=== PATIENT | male | born 1945 | race Hispanic/Latino ===

== ENCOUNTER 2016-03-25 08:43 | Emergency (ER) | payer MEDICARE ==
[2016-03-25] MEDS ORDERED: TORADOL IM ONE (09:04)
--- NOTE | 2016-03-25 09:07 | Emergency Department Report ---
HPI - General Time Seen by Provider: 03/25/16 08:53 - HPI HPI: This is a 71-year-old male who presents to the emergency department via EMS with complaint of pain to the right lower leg and the low back after slipping on the ice and [place] bus station today. Patient did not take anything for symptoms and did not receive anything for his symptoms prior to presentation. He denies any numbness or paresthesias, problems with bowel or bladder any neurological deficits. Patient complains only of psychiatric history and no past medical history. Patient says he is "unsheltered" meaning that he is homeless. Patient has some abrasions to the right og. Patient says he is able to walk on the affected right leg but he has some pain with doing so. Patient is up-to-date with his tetanus vaccination. ED Past Medical Hx - Past Medical History Hx Hypertension: Yes Hx Renal Disease: Yes Hx Psychiatric Treatment: Yes (schizophrenia) Hx HIV: No Additional medical history: PNEUMONIA, kidney problems - Surgical History Additional Surgical History: hernia removal 2010, "surgery for colon cancer" - Social History Smoking Status: Current Every Day Smoker Substance Use Type: None - Medications Home Medications: Home Medications Medication Instructions Recorded Confirmed Last Taken Type Ibuprofen [Motrin] 600 mg PO Q8H PRN #20 tablet 03/25/16 Unknown Rx Sulfamethoxazole/Trimethoprim 1 each PO BID #10 tablet 03/25/16 Unknown Rx [Bactrim DS TAB] ED Review of Systems ROS: Stated complaint: FALL Other details as noted in HPI Comment: All other systems reviewed and negative Constitutional: denies: chills, fever Eyes: denies: eye pain, eye discharge, vision change ENT: denies: ear pain, throat pain Respiratory: denies: cough, shortness of breath, wheezing Cardiovascular: denies: chest pain, palpitations Gastrointestinal: denies: abdominal pain, nausea, diarrhea Genitourinary: denies: urgency, dysuria Musculoskeletal: back pain, arthralgia Skin: other (abrasions). denies: rash Neurological: denies: headache, weakness, paresthesias Physical Exam - Physical Exam Physical Exam: GENERAL: The patient is well-developed well-nourished. Patient does not appear in any acute distress. HEENT: Normocephalic. Atraumatic. Extraocular motions are intact. Patient has moist mucous membranes. Pupils equal reactive to light bilaterally. NECK: Supple. Trachea is midline. CHEST/LUNGS: Clear to auscultation. There is no respiratory distress noted. HEART/CARDIOVASCULAR: Regular. There is no tachycardia. There is no gallop rub or murmur. ABDOMEN: Abdomen is soft, nontender. Patient has normal bowel sounds. There is no abdominal distention. SKIN: There is no rash. Patient has a narrow but long abrasion to the anterior right tib-fib. No surrounding erythema and no current discharge or bleeding. NEURO: The patient is awake, alert, and oriented. The patient is cooperative. The patient has no focal neurologic deficits. The patient has normal speech and gait. MUSCULOSKELETAL: Tenderness to palpation to the right lower extremity from the distal tib-fib to the proximal femur but no obvious deformity. There is no limitation range of motion. ED Medical Decision Making - Radiology Data Radiology results: image reviewed interpreted by me: X-ray of the right femur show some degenerative changes but no acute fracture, dislocation or any acute process. X-ray of the right tib-fib shows no fracture, dislocation or any acute process. X-ray of the lumbar spine and sacrum show some osteophytes and degenerative changes but no fractures or any obvious acute process. - Medical Decision Making 71-year-old male slipped and fell on the ice onto his right side causing an abrasion to the og and some right lower extremity pain as well as some pain to the low back. X-rays were done of the right tib-fib, femur, as well as the lumbosacral spine. All these x-rays were read by radiology, as well as by myself, and there was no obvious fractures, dislocations or any acute processes. Patient given a Toradol shot for discomfort. Patient was seen ambulatory in the emergency department and appeared stable while doing so. Patient was given multiple referrals for primary care and encouraged to seek chcf in a chcf. He will return to the ER with any worsening of his symptoms or any acute distress. - Differential Diagnosis fracture, contusion, abrasion, sprain Critical Care Time: No Critical care attestation.: If time is entered above; I have spent that time in minutes in the direct care of this critically ill patient, excluding procedure time. ED Disposition Clinical Impression: Right leg pain Fall Qualifiers: Encounter type: initial encounter Qualified Code(s): W19.XXXA - Unspecified fall, initial encounter Abrasion of leg, right Qualifiers: Encounter type: initial encounter Qualified Code(s): S80.811A - Abrasion, right lower leg, initial encounter Disposition: DISCHARGED TO HOME OR SELFCARE Is pt being admited?: No Condition: Stable Instructions: Arthralgia (ED), Abrasion (ED) Additional Instructions: I've given you multiple referrals for primary care follow-up at clinic's nearby. Return to the emergency department with any worsening of your symptoms or any acute distress. Prescriptions: Sulfamethoxazole/Trimethoprim [Bactrim DS TAB] 1 each PO BID #10 tablet Ibuprofen [Motrin] 600 mg PO Q8H PRN #20 tablet PRN Reason: Pain Referrals: PRIMARY CARE,MD [Primary Care Provider] - 3-5 Days [facility] [Outside] - 3-5 Days [facility] [Outside] - 3-5 Days [facility] [Outside] - 3-5 Days [facility] [Outside] - 3-5 Days Time of Disposition: 12:04
--- NOTE | 2016-03-25 11:18 | XRay Report ---
FINAL REPORT PROCEDURE: XR FEMUR 2 RT TECHNIQUE: AP and lateral views HISTORY: fall, leg pain COMPARISON: None FINDINGS: There is no evident fracture. There is no blastic or lytic lesion. There is mild DJD of the right hip worse than knee. Dystrophic calcifications of the posterior medial thigh are seen. IMPRESSION: Degenerative changes without evident fracture. If symptoms persist consider MRI for further evaluation.
--- NOTE | 2016-03-25 11:22 | XRay Report ---
FINAL REPORT PROCEDURE: XR SPINE LUMBOSACRAL 2-3V TECHNIQUE: AP, lateral, and cone-down lateral views HISTORY: fall, back pain COMPARISON: None FINDINGS: Mild multilevel degenerative disc disease and facet DJD is present. Intervertebral disc heights are largely maintained. Multilevel anterior lateral osteophyte formation is present as well as juxta-articular endplate sclerosis. Straightening of the lumbar lordosis is present. Calcific atherosclerosis is seen. IMPRESSION: Straightening of the lumbar lordosis either positional or related to spasm. No evident fracture. If symptoms persist consider MRI to exclude edema associated with subtle nondisplaced microfracture as well as to evaluate for disc herniation and stenosis. Mild multilevel degenerative disc disease and facet DJD.
--- NOTE | 2016-03-25 11:23 | XRay Report ---
FINAL REPORT PROCEDURE: XR TIBIA FIBULA 2V RT TECHNIQUE: AP and lateral views HISTORY: fall, leg pain COMPARISON: None FINDINGS: Mild DJD at the knee and ankle is present. There is no evident fracture of the tibia or fibula. There is no blastic or lytic lesion. IMPRESSION: No fracture
[2016-03-25] MEDS ORDERED: TRIPLE ANTIBIOTIC TP ONE (12:01)
[2016-03-25 15:16] VITALS: BP 112/75
== END 2016-03-25 15:00 | disposition home or self-care (01) ==
LOC: ED 08:43
DX: S80.811A Abrasion, right lower leg, initial encounter (principal); I10 Essential (primary) hypertension; F20.9 Schizophrenia, unspecified; F17.200 Nicotine dependence, unspecified, uncomplicated; W00.0XXA Fall on same level due to ice and snow, initial encounter; Y93.89 Activity, other specified; Y99.8 Other external cause status; Y92.89 Other specified places as the place of occurrence of the external cause
CPT/HCPCS: 72100; 73552; 73590; 96372; 99284; J1885; A6250

== ENCOUNTER 2016-04-04 23:28 | Emergency (ER) | payer SELFPAY ==
[2016-04-05 00:52] LABS: Basophils % (Auto) 0.6 % (0.0-1.8); Eosinophils % (Auto) 0.3 % (0.0-4.3); Hematocrit 43.6 % (35.5-45.6); Hemoglobin 14.3 gm/dl (11.8-15.2); Mean Corpuscular HGB Conc 33 % (32-34); Mean Corpuscular Hemoglobin 28 pg (28-32); Mean Corpuscular Volume 86 fl (84-94); Platelet Count 171 K/mm3 (140-440); Red Cell Distribution Width 14.6 % (13.2-15.2); White Blood Count 8.8 K/mm3 (4.5-11.0)
[2016-04-05 01:12] LABS: BUN/Creatinine Ratio 23.33; Blood Urea Nitrogen 21 mg/dL (9-20); Calcium 9.2 mg/dL (8.4-10.2); Carbon Dioxide 29 mmol/L (22-30); Glucose 100 mg/dL (75-100); Potassium 4.2 mmol/L (3.6-5.0); Sodium 138 mmol/L (137-145)
[2016-04-05 01:17] LABS: Anion Gap 17 mmol/L
[2016-04-05 02:02] LABS: Urine Drugs of Abuse Note Disclamer
[2016-04-05 02:13] LABS: Bilirubin,Urine NEG (Negative); Blood,Urine SM (Negative); Ketones,Urine TR mg/dL (Negative); Leukocyte Esterase,Urine NEG (Negative); Mucus,Urine FEW /HPF; Nitrite,Urine NEG (Negative); Protein,Urine <15 mg/dL mg/dL (Negative); Urobilinogen,Urine < 2.0 mg/dL (<2.0)
[2016-04-05 07:37] VITALS: BP 117/80
--- NOTE | 2016-04-05 21:02 | ED Elopement Review ---
ED Pt Elopement review - Results review Lab results: Laboratory Tests 04/05/16 04/05/16 04/05/16 00:31 00:31 00:31 WBC 8.8 RBC 5.10 H Hgb 14.3 Hct 43.6 MCV 86 MCH 28 MCHC 33 RDW 14.6 Plt Count 171 Lymph % (Auto) 16.7 [place] % (Auto) 7.6 H Eos % (Auto) 0.3 Baso % (Auto) 0.6 Lymph # 1.5 [place] # 0.7 Eos # 0.0 Baso # 0.1 Seg Neutrophils % 74.8 H Seg Neutrophils # 6.6 Sodium 138 Potassium 4.2 Chloride 96.0 L Carbon Dioxide 29 Anion Gap 17 BUN 21 H Creatinine 0.9 Estimated GFR > 60 BUN/Creatinine Ratio 23.33 Glucose 100 Calcium 9.2 Urine Color Urine Turbidity Urine pH Ur Specific [place] Urine Protein Urine Glucose (UA) Urine Ketones Urine Blood Urine Nitrite Urine Bilirubin Urine Urobilinogen Ur Leukocyte Esterase Urine WBC (Auto) Urine RBC (Auto) U Epithel Cells (Auto) Urine Mucus Urine Opiates Screen Urine Methadone Screen Ur Barbiturates Screen Ur Phencyclidine Scrn Ur Amphetamines Screen U Benzodiazepines Scrn Urine Cocaine Screen U Marijuana (THC) Screen Drugs of Abuse Note Plasma/Serum Alcohol < 0.01 04/05/16 04/05/16 01:48 01:48 WBC RBC Hgb Hct MCV MCH MCHC RDW Plt Count Lymph % (Auto) [place] % (Auto) Eos % (Auto) Baso % (Auto) Lymph # [place] # Eos # Baso # Seg Neutrophils % Seg Neutrophils # Sodium Potassium Chloride Carbon Dioxide Anion Gap BUN Creatinine Estimated GFR BUN/Creatinine Ratio Glucose Calcium Urine Color Yellow Urine Turbidity Clear Urine pH 5.0 Ur Specific [place] 1.020 Urine Protein <15 mg/dl Urine Glucose (UA) Neg Urine Ketones Tr Urine Blood Sm Urine Nitrite Neg Urine Bilirubin Neg Urine Urobilinogen < 2.0 Ur Leukocyte Esterase Neg Urine WBC (Auto) 2.0 Urine RBC (Auto) 1.0 U Epithel Cells (Auto) 1.0 Urine Mucus Few Urine Opiates Screen Presumptive negative Urine Methadone Screen Presumptive negative Ur Barbiturates Screen Presumptive negative Ur Phencyclidine Scrn Presumptive negative Ur Amphetamines Screen Presumptive negative U Benzodiazepines Scrn Presumptive negative Urine Cocaine Screen Presumptive negative U Marijuana (THC) Screen Presumptive negative Drugs of Abuse Note Disclamer Plasma/Serum Alcohol - Call Back decision Pt Call Back Decision: No action required
== END 2016-04-05 07:31 | disposition left against medical advice (07) ==
LOC: ED 23:28
DX: Z00.8 Encounter for other general examination (principal); Z53.21 Procedure and treatment not carried out due to patient leaving prior to being seen by health care provider
CPT/HCPCS: 36415; 80048; 80307; 81001; 85025; G0480; 80320

== ENCOUNTER 2016-04-17 22:18 | Emergency (ER) | payer MEDICARE, OTHER ==
[2016-04-17 22:43] VITALS: BP 148/97
--- NOTE | 2016-04-17 23:07 | Emergency Department Report ---
Chief Complaint: Abdominal Pain Stated Complaint: GENERAL ILLNESS Time Seen by Provider: 04/17/16 23:03 - HPI History of Present Illness: Pleuritic chest pain x 1 hour, denies fevers and coughing; said he thinks he inhaled "poisonous vapors"; denies abdominal pain and N/V - ROS Review of Systems: Negative except for those stated in HPI - Exam Vital Signs: Vital Signs 04/17/16 22:36 Temperature 97.9 F Pulse Rate 92 H Respiratory 18 Rate Blood Pressure 148/97 O2 Sat by Pulse 97 Oximetry Physical Exam: Heart - RRR Lungs - mild bilateral wheezes MSE screening note: Focused history and physical exam performed. Due to findings the following was ordered: Labs, CXR, EKG, patient to be seen in Main ED ED Disposition for MSE Condition: Stable
[2016-04-18 00:26] LABS: Basophils % (Auto) 0.9 % (0.0-1.8); Eosinophils % (Auto) 2.1 % (0.0-4.3); Hematocrit 42.9 % (35.5-45.6); Mean Corpuscular HGB Conc 33 % (32-34); Mean Corpuscular Hemoglobin 28 pg (28-32); Mean Corpuscular Volume 87 fl (84-94); Platelet Count 223 K/mm3 (140-440); Red Blood Count 4.96 M/mm3 (3.65-5.03); Red Cell Distribution Width 14.8 % (13.2-15.2); White Blood Count 8.3 K/mm3 (4.5-11.0)
[2016-04-18 00:40] LABS: BUN/Creatinine Ratio 12.72; Blood Urea Nitrogen 14 mg/dL (9-20); Calcium 9.2 mg/dL (8.4-10.2); Carbon Dioxide 29 mmol/L (22-30); Chloride 99.7 mmol/L (98-107); Glucose 97 mg/dL (75-100); Potassium 4.6 mmol/L (3.6-5.0); Sodium 142 mmol/L (137-145)
[2016-04-18 00:51] LABS: Anion Gap 18 mmol/L
--- NOTE | 2016-04-18 12:30 | XRay Report ---
ROUTINE CHEST, TWO VIEWS: HISTORY: Shortness of breath. The trachea, heart, mediastinal contour, lung wu and bony thorax are unremarkable. IMPRESSION: Unremarkable chest x-ray. No significant change since 01/22/16.
--- NOTE | 2016-04-19 15:28 | ED Elopement Review ---
ED Pt Elopement review - Results review Lab results: Laboratory Tests 04/18/16 04/18/16 00:02 00:02 WBC 8.3 RBC 4.96 Hgb 14.0 Hct 42.9 MCV 87 MCH 28 MCHC 33 RDW 14.8 Plt Count 223 Lymph % (Auto) 23.8 [place] % (Auto) 8.3 H Eos % (Auto) 2.1 Baso % (Auto) 0.9 Lymph # 2.0 [place] # 0.7 Eos # 0.2 Baso # 0.1 Seg Neutrophils % 64.9 Seg Neutrophils # 5.4 Sodium 142 Potassium 4.6 Chloride 99.7 Carbon Dioxide 29 Anion Gap 18 BUN 14 Creatinine 1.1 Estimated GFR > 60 BUN/Creatinine Ratio 12.72 Glucose 97 Calcium 9.2 Troponin T < 0.010 - Call Back decision Pt Call Back Decision: No action required
== END 2016-04-18 00:10 | disposition left against medical advice (07) ==
LOC: ED 22:18
DX: R07.81 Pleurodynia (principal); Z53.21 Procedure and treatment not carried out due to patient leaving prior to being seen by health care provider
CPT/HCPCS: 36415; 71020; 80048; 84484; 85025

== ENCOUNTER 2016-05-28 03:51 | Emergency (ER) | payer SELFPAY ==
[2016-05-28 04:59] LABS: Basophils % (Auto) 0.5 % (0.0-1.8); Eosinophils % (Auto) 2.8 % (0.0-4.3); Hematocrit 42.3 % (35.5-45.6); Hemoglobin 13.4 gm/dl (11.8-15.2); Mean Corpuscular HGB Conc 32 % (32-34); Mean Corpuscular Hemoglobin 27 pg (28-32); Mean Corpuscular Volume 86 fl (84-94); Platelet Count 177 K/mm3 (140-440); Red Blood Count 4.93 M/mm3 (3.65-5.03); Red Cell Distribution Width 15.1 % (13.2-15.2); White Blood Count 11.2 K/mm3 (4.5-11.0)
[2016-05-28 05:09] LABS: BUN/Creatinine Ratio 18.88; Blood Urea Nitrogen 17 mg/dL (9-20); Carbon Dioxide 27 mmol/L (22-30); Chloride 99.4 mmol/L (98-107); Glucose 93 mg/dL (75-100); Sodium 141 mmol/L (137-145)
[2016-05-28 05:11] LABS: Anion Gap 19 mmol/L
--- NOTE | 2016-05-28 07:00 | Cat Scan Report ---
FINAL REPORT PROCEDURE: CT HEAD/BRAIN WO CON TECHNIQUE: Computerized tomography of the head was performed without contrast material. HISTORY: headache COMPARISON: No prior studies are available for comparison. FINDINGS: Skull and scalp: Normal. Paranasal sinuses: Normal. Ventricles and subarachnoid spaces: There is mild central and cortical atrophy which is appropriate for the patient's age.. Cerebrum: No evidence of hemorrhage, acute infarction or mass . Cerebellum and brainstem: No evidence of hemorrhage, acute infarction or mass. Vasculature: Normal. Comments: None. IMPRESSION: There is no acute intracranial abnormality.
[2016-05-28 14:00] VITALS: BP 119/87
--- NOTE | 2016-05-28 15:26 | Emergency Department Report ---
HPI - General Chief Complaint: Headache Time Seen by Provider: 05/28/16 15:16 - HPI HPI: Chief complaint: Head and neck pain HPI: Patient is a 71-year-old male with a history of schizophrenia states he gets his Haldol shot once a month and is due in another week or 2. Patient states he's here because he is having pain to his upper neck and occipital area. Patient has no neurologic deficits denies nausea vomiting or diarrhea. Patient denies fever cough or cold. Patient states that he is homeless currently and hungry and cold. Mode of arrival: Ambulatory Source: [Patient] Began: Today Duration: Continuous Context: See above Quality: Dull Severity: 9 out of 10 Improved with: Nothing Worsened with: Touching it Associated signs and symptoms: No neurologic deficits ED Past Medical Hx - Past Medical History Previous Medical History?: Yes Hx Hypertension: Yes Hx Renal Disease: Yes Hx Psychiatric Treatment: Yes (schizophrenia) Hx HIV: No Additional medical history: PNEUMONIA, kidney problems - Surgical History Past Surgical History?: Yes Additional Surgical History: hernia removal 2010, "surgery for colon cancer" - Social History Smoking Status: Current Every Day Smoker Substance Use Type: None - Medications Home Medications: Home Medications Medication Instructions Recorded Confirmed Last Taken Type Ibuprofen [Motrin] 600 mg PO Q8H PRN #20 tablet 03/25/16 Unknown Rx Sulfamethoxazole/Trimethoprim 1 each PO BID #10 tablet 03/25/16 Unknown Rx [Bactrim DS TAB] ED Review of Systems ROS: Stated complaint: BACK AND HEAD PAIN Other details as noted in HPI ROS Constitutional: No fever ENT: No uri symptoms Cardiovascular: No chest pain Respiratory: No sob or cough GI: No nausea vomiting or diarrhea : No dysuria frequency or urgency, Skin: No rash Neuro: No focal weakness or numbness Psych: History of schizophrenia Sascha/lymph: No edema Physical Exam - Physical Exam Vital Signs: Vital Signs 05/28/16 05/28/16 04:17 13:59 Temperature 98.4 F 98.0 F Pulse Rate 80 87 Respiratory 16 Rate Blood Pressure 118/78 119/87 O2 Sat by Pulse 97 98 Oximetry Physical Exam: GENERAL: The patient is well-developed well-nourished . HEENT: Normocephalic. Atraumatic. Extraocular motions are intact. Patient has moist mucous membranes. Patient has one remaining tooth. NECK: Supple. No meningitic signs are noted. There is no adenopathy noted. CHEST/LUNGS: Clear to auscultation. There is no respiratory distress noted. HEART/CARDIOVASCULAR: Regular. There is no tachycardia. There is no gallop rub or murmur. ABDOMEN: Abdomen is soft, nontender. Patient has normal bowel sounds. There is no abdominal distention. SKIN: There is no rash. There is no edema. There is no diaphoresis. NEURO: The patient is awake, alert, and oriented. The patient is cooperative. The patient has no focal neurologic deficits. The patient has normal speech. MUSCULOSKELETAL: There is no tenderness or deformity. There is no limitation range of motion. There is no evidence of acute injury. ED Course Vital Signs 05/28/16 05/28/16 04:17 13:59 Temperature 98.4 F 98.0 F Pulse Rate 80 87 Respiratory 16 Rate Blood Pressure 118/78 119/87 O2 Sat by Pulse 97 98 Oximetry - Reevaluation(s) Reevaluation #1: 05/28/16 15:31 Patient was given 400 mg of ibuprofen for his headache. Will have social service technician see to possibly get the patient into a senior care for the night. ED Medical Decision Making - Lab Data Result diagrams: 05/28/16 04:40 05/28/16 04:40 Laboratory Tests 05/28/16 04:40 Calcium 9.0 - Radiology Data Radiology results: report reviewed (CT head shows no acute process.) Critical care attestation.: If time is entered above; I have spent that time in minutes in the direct care of this critically ill patient, excluding procedure time. ED Disposition Clinical Impression: Homeless Cephalalgia Qualifiers: Headache type: unspecified Headache chronicity pattern: unspecified pattern Intractability: not intractable Qualified Code(s): R51 - Headache Disposition: DISCHARGED TO HOME OR SELFCARE Is pt being admited?: No Does the pt Need Aspirin: No Condition: Stable Referrals: PRIMARY CAREMD [Primary Care Provider] - 3-5 Days [facility] [Outside] - 3-5 Days LEOBARDO SAVAGE MD [Staff Physician] - 3-5 Days (Dr. Savage is a primary care doctor free to follow-up with.) Time of Disposition: 15:33
[2016-05-28] MEDS ORDERED: MOTRIN PO ONE (15:27)
== END 2016-05-28 16:00 | disposition home or self-care (01) ==
LOC: ED 03:51
DX: R51 Headache (principal); Z59.0 Homelessness; I10 Essential (primary) hypertension; F20.9 Schizophrenia, unspecified; J18.9 Pneumonia, unspecified organism; F17.200 Nicotine dependence, unspecified, uncomplicated
CPT/HCPCS: 36415; 70450; 80048; 85025

== ENCOUNTER 2016-05-30 06:11 | Emergency (ER) | payer MEDICARE ==
[2016-05-30 06:23] VITALS: BP 128/96
--- NOTE | 2016-05-30 08:54 | Emergency Department Report ---
HPI - General Chief Complaint: Headache Time Seen by Provider: 05/30/16 08:37 - HPI HPI: 71-year-old male was brought in today by EMS he was found outside old skin was mottled. Patient had told triage that he had a headache that was sharp and worse tonight. Patient was recently seen on Sunday he had a head CT scan which was negative. When I interviewed this patient patient denies any pain at this time he denies any problems at this time. ED Past Medical Hx - Past Medical History Previous Medical History?: Yes Hx Hypertension: Yes Hx Renal Disease: Yes Hx Psychiatric Treatment: Yes (schizophrenia) Hx HIV: No Additional medical history: PNEUMONIA, kidney problems - Surgical History Past Surgical History?: Yes Additional Surgical History: hernia removal 2010, "surgery for colon cancer" - Social History Smoking Status: Current Every Day Smoker - Medications Home Medications: Home Medications Medication Instructions Recorded Confirmed Last Taken Type Ibuprofen [Motrin] 600 mg PO Q8H PRN #20 tablet 03/25/16 Unknown Rx Sulfamethoxazole/Trimethoprim 1 each PO BID #10 tablet 03/25/16 Unknown Rx [Bactrim DS TAB] ED Review of Systems ROS: Stated complaint: BODY COLD Other details as noted in HPI Physical Exam - Physical Exam Vital Signs: Vital Signs 05/30/16 06:13 Temperature 97.6 F Pulse Rate 97 H Respiratory 18 Rate Blood Pressure 128/96 O2 Sat by Pulse 98 Oximetry General: GENERAL: Alert and oriented x3, no apparent distress, Normal Gait, atraumatic. HEAD: Head is normocephalic and a-traumatic. EYES: Extra ocular muscles are intact. Pupils are equal, round, and reactive to light and accommodation. EARS: symetrical, atraumatic, non tender, ear canal clear and moderate cerumen, tympanic membrance non inflamed. gross auditory nml bilaterally. NOSE: Nose symetrical, Nontender,Nares appeared normal. MOUTH:Mouth is well hydrated and without lesions. Tonsils nonerythematous or swollen, Uvula midline, Tongue not elevated. Mucous membranes are moist. Posterior pharynx clear, no exudate or lesions. Patent airways. This in several teeth NECK: Supple. Non edematous, No carotid bruits. No lymphadenopathy or thyromegaly. LUNGS: Symetrical with respiration, No wheezing, no rales or crackles, CTAB. HEART: S1, S2 present, regular rate and rhythm without murmur, no rubs, no gallops. ABDOMEN: No organomegaly was noted,Positive bowel sounds, soft, and non- distended. . Nontender to palpation on all Quadrants, NO CVA tenderness. NEUROLOGIC: No focal Deficit, Cranial nerves II through XII are grossly intact. No loss of sensation, No facial droop, PSYCHIATRIC: Mood is congruent with affect, denies suicidal or homicidal ideations. SKIN: Warm and dry, No lesions, No ulceration or induration present ED Course Vital Signs 05/30/16 06:13 Temperature 97.6 F Pulse Rate 97 H Respiratory 18 Rate Blood Pressure 128/96 O2 Sat by Pulse 98 Oximetry ED Medical Decision Making - Medical Decision Making Patient's been evaluated by this provider in fast track. Discussed case with Dr. Montgomery. Patient has no complaints recent scan no new traumas no complaints at this time. We will discharge patient back to the homeless correction. Critical care attestation.: If time is entered above; I have spent that time in minutes in the direct care of this critically ill patient, excluding procedure time. ED Disposition Clinical Impression: Headache, Homeless Disposition: DISCHARGED TO HOME OR SELFCARE Is pt being admited?: No Does the pt Need Aspirin: No Condition: Stable Instructions: Acute Headache (ED) Additional Instructions: Please follow up with the homeless correction and social media content specialist. Referrals: PRIMARY CAREMD [Primary Care Provider] - 3-5 Days CHICHO WEBER MD [Staff Physician] - 3-[address] [facility] [Outside] - 3-5 Days [facility] [Outside] - 3-5 Days [facility] [Outside] - 3-5 Days
== END 2016-05-30 09:04 | disposition home or self-care (01) ==
LOC: ED 06:11
DX: R51 Headache (principal); I10 Essential (primary) hypertension; N28.9 Disorder of kidney and ureter, unspecified; F17.200 Nicotine dependence, unspecified, uncomplicated
CPT/HCPCS: 99283

== ENCOUNTER 2016-05-30 21:17 | Emergency (ER) | payer MEDICARE ==
[2016-05-31] MEDS ORDERED: TYLENOL PO PRN (05:30)
[2016-05-31] MEDS ORDERED: MILK OF MAGNESIA PO PRN (05:30)
[2016-05-31] MEDS ORDERED: ALUM-MAG HYDROX-SIMETH 200-200-20MG/5ML PO PRN (05:30)
--- NOTE | 2016-05-31 05:32 | Emergency Department Report ---
HPI - General Chief Complaint: Psych Time Seen by Provider: 05/31/16 03:41 - HPI HPI: The patient is a 71-year-old male with a history of paranoid schizophrenia, who presents for evaluation of mental health. The patient reports 1 day of constant severe sadness, hopelessness, and despair. He reports associated suicidal ideations. He states that he does not have a plan regarding how he would commit suicide, but states the feelings are there. The patient denies fever, headache, unexplained weight loss or weight gain, heat or cold intolerance, skin, hair, or nail changes, neuro deficits, homicidal ideations, or auditory or visual hallucinations. ED Past Medical Hx - Past Medical History Hx Hypertension: Yes Hx Renal Disease: Yes Hx Psychiatric Treatment: Yes (schizophrenia) Hx HIV: No Additional medical history: PNEUMONIA, kidney problems - Surgical History Additional Surgical History: hernia removal 2010, "surgery for colon cancer" - Social History Smoking Status: Never Smoker Substance Use Type: None - Medications Home Medications: Home Medications Medication Instructions Recorded Confirmed Last Taken Type No Known Home Medications [No 05/31/16 05/31/16 Unknown History Reported Home Medications] ED Review of Systems ROS: Stated complaint: MH EVAL Other details as noted in HPI Constitutional: denies: fever ENT: denies: throat or neck pain Respiratory: denies: cough, shortness of breath Cardiovascular: denies: chest pain Endocrine: denies unexplained weight loss or gain Gastrointestinal: denies: abdominal pain, nausea Genitourinary: denies: dysuria Musculoskeletal: denies: leg swelling Skin: denies: rash Neurological: denies: headache Hematological/Lymphatic: denies: easy bleeding or easy bruising Psych: reports sadness and hopelessness Physical Exam - Physical Exam Vital Signs: Vital Signs 05/30/16 05/31/16 05/31/16 21:27 00:41 00:55 Temperature 98.5 F 97.5 F L Pulse Rate 100 H 109 H Respiratory 20 18 18 Rate Blood Pressure 118/92 Blood Pressure 103/72 [Left] O2 Sat by Pulse 100 96 96 Oximetry Physical Exam: General: well-nourished, well-developed, no acute distress Head: Normocephalic, atraumatic Eyes: normal sclera ENT: Mucous membranes are pink and moist Neck: trachea midline, neck supple, No neck stiffness, no cervical adenopathy Respiratory: Breath sounds equal bilaterally, no wheezing, rales, or rhonchi Cardio: S1 and S2 present, no murmurs, rubs, gallops, capillary refill is brisk Abdomen: Normoactive bowel sounds, soft abdomen, no rigidity, no guarding or rebound tenderness Chest WALL/Back: No tenderness to palpation of the chest wall, no CVA tenderness with percussion Musc: No pitting edema Skin: No rash Neuro: no facial drooping, normal speech Psych: Flat affect, depressed mood, poor insight, positive SI ED Course Vital Signs 05/30/16 05/31/16 05/31/16 21:27 00:41 00:55 Temperature 98.5 F 97.5 F L Pulse Rate 100 H 109 H Respiratory 20 18 18 Rate Blood Pressure 118/92 Blood Pressure 103/72 [Left] O2 Sat by Pulse 100 96 96 Oximetry ED Medical Decision Making - Medical Decision Making The patient was seen and examined by myself. The patient is placed on a property assessment monitor and continuous pulse ox. On initial evaluation, the patient was found to be in no distress. Labs are obtained. Lab results are grossly unremarkable. The patient is medically clear. Mental health is consulted. Mental health evaluates the patient and agrees that the patient is at risk of harm to self. A 1013 is completed. The patient will be admitted to a psychiatric facility once bed placement is obtained. Critical care attestation.: If time is entered above; I have spent that time in minutes in the direct care of this critically ill patient, excluding procedure time. ED Disposition Clinical Impression: Suicidal ideation Disposition: DC/TX PSY HOSP/PSY UNIT Is pt being admited?: No Does the pt Need Aspirin: No Condition: Stable Referrals: PRIMARY CARE [Primary Care Provider] - 3-5 Days Time of Disposition: 05:31
[2016-05-31 06:34] LABS: Urine Drugs of Abuse Note Disclamer
[2016-05-31 06:42] LABS: Bilirubin,Urine NEG (Negative); Blood,Urine NEG (Negative); Ketones,Urine TR mg/dL (Negative); Leukocyte Esterase,Urine NEG (Negative); Mucus,Urine 1+ /HPF; Nitrite,Urine NEG (Negative); Protein,Urine <15 mg/dL mg/dL (Negative)
[2016-05-31 06:46] LABS: Eosinophils % (Auto) 3.9 % (0.0-4.3); Hematocrit 38.9 % (35.5-45.6); Hemoglobin 12.5 gm/dl (11.8-15.2); Mean Corpuscular HGB Conc 32 % (32-34); Mean Corpuscular Hemoglobin 27 pg (28-32); Mean Corpuscular Volume 84 fl (84-94); Platelet Count 184 K/mm3 (140-440); Red Blood Count 4.66 M/mm3 (3.65-5.03); Red Cell Distribution Width 14.9 % (13.2-15.2); White Blood Count 7.8 K/mm3 (4.5-11.0)
[2016-05-31 06:58] LABS: Anion Gap 15 mmol/L; BUN/Creatinine Ratio 19.09; Blood Urea Nitrogen 21 mg/dL (9-20); Calcium 8.8 mg/dL (8.4-10.2); Carbon Dioxide 28 mmol/L (22-30); Chloride 98.1 mmol/L (98-107); Glucose 86 mg/dL (75-100); Potassium 4.3 mmol/L (3.6-5.0); Sodium 137 mmol/L (137-145)
--- NOTE | 2016-05-31 11:49 | Consultation ---
History of Present Illness - Reason for Consult Consult date: 05/31/16 Reason for consult: psychotic symptoms - Chief Complaint Chief complaint: "I have Paranoid schizophrenia" - History of Present Psychiatric Illness Mr. Dean is a 71 year old white male seen for psychiatric consultation in the ER. He reports paranoia has been increasingly more severe and he knows he needs help. He stated he would kill himself if he does not get help. He reports auditory hallucinations "a little bit." He has been noncompliant with Haldol decanoate. Haldol 100mg IM monthly. No recent dosage. He is homeless and has been living on the streets. He no longer has family contact. Medications and Allergies Allergies Allergy/AdvReac Type Severity Reaction Status Date / Time No Known Allergies Allergy Verified 05/25/14 04:07 Home Medications Medication Instructions Recorded Confirmed Last Taken Type No Known Home Medications [No 05/31/16 05/31/16 Unknown History Reported Home Medications] Active Meds: Active Medications Acetaminophen (Tylenol) 650 mg PO Q4HR PRN PRN Reason: Pain MILD(1-3)/Fever >100.5/ANDREWS Al Hydrox/Mg Hydrox/Simethicone (Alum-Mag Hydrox-Simeth 592-116-95gp/5ml) 30 ml PO Q4HR PRN PRN Reason: Indigestion Magnesium Hydroxide (Milk Of Magnesia) 30 ml PO Q12HR PRN PRN Reason: Constipation Past psychiatric history - Past Medical History Past Medical History: other ("heavy legs") Past Surgical History: No surgical history - past Psychiatric treatment and history Psych: Schizophrenia psychiatric treatment history: history of hospitalizations. Last one was 6 months ago. He denies alcohol or illicit substance use - Social History Social history: other (previously x 2. He was living with his mother until 2003 when she . He has been homeless since) Mental Status Exam - Vital signs Last Vital Signs Temp 97.3 F L 05/31/16 10:09 Pulse 91 H 05/31/16 10:09 Resp 18 05/31/16 10:09 BP 87/54 05/31/16 10:09 Pulse Ox 95 05/31/16 10:09 - Exam Orientation: time, place, person Affect: depressed Mood: congruent with affect Thought content: paranoia Thought Process: Circumstantial Perceptions: auditory (vague in description) Speech: slow Concentration: distractible Motor activity: normal Level of consciousness: alert Memory: Intact Sleep Symptoms: Restless Appetite: decreased Interaction: cooperative Results Result Diagrams: 05/31/16 06:32 05/31/16 06:32 Abnormal lab results 05/31/16 05/31/16 Range/Units 06:32 06:32 MCH 27 L (28-32) pg [place] % (Auto) 12.6 H (0.0-7.3) % [place] # 1.0 H (0.0-0.8) K/mm3 BUN 21 H (9-20) mg/dL All other labs normal. Assessment and Plan Assessment and plan: Assessment: Schizophrenia, paranoid type Decompensation with primary symptoms of paranoia, depression, suicidal ideation complicated by severe psychosocial stressors Recommendation: 1013, inpatient psychiatric treatment Haldol 5mg hs
--- NOTE | 2016-06-01 15:10 | Progress Note ---
Subjective - Reason for Consult Consult date: 06/01/16 Reason for consult: Psy Follow-Up - Chief Complaint Chief complaint: "I am ready to go to [facility]" Mental Status Exam - Vital signs Last Vital Signs Temp 99.1 F 06/01/16 08:41 Pulse 64 06/01/16 13:35 Resp 15 06/01/16 13:35 BP 108/67 06/01/16 13:35 Pulse Ox 98 06/01/16 10:36 - Exam Narrative exam: Upon arrival to patient's room, he was sleeping and easy to arouse. He stated, "I am looking forward to going to [facility]." He was pleasant and calm during interview. He denies AVH's at this time. Orientation: time, place, person Affect: flat Mood: other ("I feel better") Thought content: other (Denies AVH) Thought Process: Intact (Linear) Perceptions: none Speech: normal rate and pattern Motor activity: normal Level of consciousness: alert Memory: Intact Sleep Symptoms: None (6 to 7 hours) Interaction: cooperative Assessment and Plan Patient is pending [facility] placement tomorrow. Initiate Haldol 5 mg PO HS for psychosis.
[2016-06-01] MEDS: HALDOL PO SCH ×2 (22:37→22:39)
--- NOTE | 2016-06-02 05:45 | Event Note ---
Date: 06/02/16 Psychiatric consult appreciated. Vital signs reviewed and appreciated. Patient awaits psychiatric placement. Vital Signs 05/30/16 05/31/16 05/31/16 21:27 00:41 00:55 Temperature 98.5 F 97.5 F L Pulse Rate 100 H 109 H Respiratory 20 18 18 Rate Blood Pressure 118/92 Blood Pressure 103/72 [Left] O2 Sat by Pulse 100 96 96 Oximetry 05/31/16 05/31/16 05/31/16 09:25 10:09 11:47 Temperature 97.3 F L 97.3 F L Pulse Rate 91 H 91 H 98 H Respiratory 18 18 Rate Blood Pressure Blood Pressure 90/54 87/54 86/54 [Left] O2 Sat by Pulse 95 95 Oximetry 06/01/16 06/01/16 06/01/16 00:55 01:00 08:41 Temperature 97.8 F 99.1 F Pulse Rate 76 84 Respiratory 16 16 16 Rate Blood Pressure Blood Pressure 102/52 89/54 [Left] O2 Sat by Pulse 98 98 98 Oximetry 06/01/16 06/01/16 06/01/16 10:36 13:35 20:06 Temperature 98.2 F Pulse Rate 64 88 Respiratory 16 15 16 Rate Blood Pressure Blood Pressure 108/67 112/73 [Left] O2 Sat by Pulse 98 97 Oximetry
--- NOTE | 2016-06-02 15:23 | Progress Note ---
Subjective - Reason for Consult Consult date: 06/02/16 Reason for consult: evaluate need to continue 1013 which was placed due to disorganized behavio - Chief Complaint Chief complaint: "I can't go on like this" Patient is aware of their current situation. He is currently adherent to his medications. The patient notes that their mood is: sad. Affect is constricted Patient relates sleep is: inconsistent. Energy levels are: reduced Appetite is: variable Anxiety: present his unstable living situation Appearance: adentitious, Patient appears older than stated age Behavior: no PMA/PMR Cooperation: fair Insight/Judgment: limited Level of cognition: not assessed comprehensively Level of consciousness: A/O x 3 Knowledge: unable to assess Speech: fluent Thought processes: perseverative Thought content: endorses passive SI Perceptions: periodic Mental Status Exam - Vital signs Last Vital Signs Temp 98.2 F 06/01/16 20:06 Pulse 88 06/01/16 20:06 Resp 16 06/01/16 20:06 BP 112/73 06/01/16 20:06 Pulse Ox 97 06/01/16 20:06 Assessment and Plan Plan: Referred to [facility] and pending transfer
[2016-06-02 16:43] VITALS: BP 106/74
[2016-06-02] MEDS: HALDOL PO SCH (22:30)
== END 2016-06-03 01:35 ==
LOC: ED 21:17 → EEVIPCON 21:17 → ED 06-03 01:35
DX: R45.851 Suicidal ideations (principal); I10 Essential (primary) hypertension; N28.9 Disorder of kidney and ureter, unspecified; F20.9 Schizophrenia, unspecified
CPT/HCPCS: 36415; 80048; 80307; 81001; 85025; 99285; G0480; 80320

== ENCOUNTER 2016-06-09 23:38 | Emergency (ER) | payer SELFPAY ==
--- NOTE | 2016-06-10 00:30 | Emergency Department Report ---
ED General Adult HPI - General Chief complaint: Chest Pain Stated complaint: HEART PALPITATIONS,YUNIOR Time Seen by Provider: 06/10/16 00:19 Source: patient, EMS, RN notes reviewed, old records reviewed Mode of arrival: Stretcher Limitations: No Limitations - History of Present Illness Initial comments: This is a 71-year-old male. He has a past medical history of psychosis and schizophrenia. The patient is brought to the hospital by EMS for complaint of heart palpitations. Patient reported that he felt like his heart is racing. Patient has a history of bradycardia which is essentially asymptomatic. The patient currently denies chest pain, shortness of breath, nausea, vomiting, diaphoresis. There is no leg pain. There is no leg swelling. No recent trips greater than 4 hours. Patient denies recent toxic drug use. He is not homicidal or suicidal. Symptoms have essentially resolved. The patient has no complaint at this time. -: Gradual Consistency: now resolved Improves with: none Worsens with: none Associated Symptoms: denies: confusion, chest pain, cough, diaphoresis, fever/ chills, headaches, malaise, rash, seizure, shortness of breath, syncope, weakness - Related Data Home Medications Medication Instructions Recorded Confirmed Last Taken Haloperidol Decanoate [Haldol 100 mg IM QMONTH 06/10/16 06/10/16 2 Weeks Ago Decanoate] Allergies Allergy/AdvReac Type Severity Reaction Status Date / Time No Known Allergies Allergy Verified 05/25/14 04:07 ED Review of Systems ROS: Stated complaint: HEART PALPITATIONS,YUNIOR Other details as noted in HPI Constitutional: denies: fever Eyes: denies: vision change ENT: denies: epistaxis Cardiovascular: palpitations Gastrointestinal: denies: vomiting Genitourinary: denies: urgency, dysuria Musculoskeletal: denies: back pain Skin: denies: lesions Neurological: as per HPI. denies: headache, weakness Psychiatric: denies: homicidal thoughts, suicidal thoughts ED Past Medical Hx - Past Medical History Hx Hypertension: Yes Hx Renal Disease: Yes Hx Psychiatric Treatment: Yes (schizophrenia) Hx HIV: No Additional medical history: PNEUMONIA, kidney problems - Surgical History Additional Surgical History: hernia removal 2010, "surgery for colon cancer" - Social History Smoking Status: Current Every Day Smoker Substance Use Type: None - Medications Home Medications: Home Medications Medication Instructions Recorded Confirmed Last Taken Type Haloperidol Decanoate [Haldol 100 mg IM QMONTH 06/10/16 06/10/16 2 Weeks Ago History Decanoate] ED Physical Exam - General Limitations: No Limitations General appearance: alert, in no apparent distress - Head Head exam: Present: atraumatic, normocephalic - Eye Eye exam: Present: normal appearance, EOMI. Absent: nystagmus - ENT ENT exam: Present: normal exam, normal orophraynx, mucous membranes moist, normal external ear exam - Neck Neck exam: Present: normal inspection, full ROM. Absent: tenderness, meningismus - Respiratory Respiratory exam: Present: normal lung sounds bilaterally. Absent: respiratory distress, wheezes, rales, rhonchi, stridor, decreased breath sounds - Cardiovascular Cardiovascular Exam: Present: regular rate, normal rhythm, normal heart sounds. Absent: bradycardia, tachycardia, irregular rhythm, systolic murmur, diastolic murmur, rubs, gallop - GI/Abdominal GI/Abdominal exam: Present: soft, normal bowel sounds. Absent: distended, tenderness, guarding, rebound, rigid, pulsatile mass - Rectal Rectal exam: Present: deferred - Extremities Exam Extremities exam: Present: normal inspection, full ROM, normal capillary refill. Absent: tenderness, pedal edema, joint swelling, calf tenderness - Back Exam Back exam: Present: normal inspection, full ROM. Absent: tenderness, CVA tenderness (R), CVA tenderness (L), muscle spasm, paraspinal tenderness, vertebral tenderness - Neurological Exam Neurological exam: Present: alert, oriented X3, normal gait, other (Extraocular movements intact. Tongue midline. No facial droop. Facial sensation intact to light touch in the V1, V2, V3 distribution bilaterally. 5 and 5 strength in 4 extremities.. Sensation is intact to light touch in 4 extremities.). Absent : motor sensory deficit - Psychiatric Psychiatric exam: Present: anxious. Absent: homicidal ideation, suicidal ideation - Skin Skin exam: Present: warm, dry, intact, normal color. Absent: rash ED Course Vital Signs 06/09/16 06/10/16 06/10/16 23:57 00:16 00:25 Temperature 97.8 F Pulse Rate 54 L 71 Respiratory 18 18 12 Rate Blood Pressure 109/54 O2 Sat by Pulse 100 99 98 Oximetry 06/10/16 01:00 Temperature Pulse Rate 59 L Respiratory 18 Rate Blood Pressure 121/70 O2 Sat by Pulse 97 Oximetry - Reevaluation(s) Reevaluation #1: 06/10/16 01:45 Differential diagnosis: Arrhythmia, anemia, electrolyte derangement Assessment and plan: 71-year-old male with complaints of palpitations with no chest pain or shortness of breath. He is afebrile with reassuring vital signs. His physical examination is unremarkable. His EKG is unchanged from her prior EKG. Laboratory studies were unremarkable, patient had a slightly elevated TSH at 5.720 March 2015. I do not believe patient requires emergent rechecking of his thyroid levels. He has been observed in the ER for a prolonged period of time without significant clinical decompensation. Patient will be discharged with instructions to follow up with outpatient primary care/cardiology. Return precautions reviewed. ED Medical Decision Making - Lab Data Result diagrams: 06/10/16 00:33 06/10/16 00:33 Vital Signs 06/09/16 23:57 Temperature 97.8 F Pulse Rate 54 L Respiratory 18 Rate Blood Pressure 109/54 O2 Sat by Pulse 100 Oximetry Lab Results 06/10/16 06/10/16 06/10/16 Range/Units 00:33 00:33 00:33 WBC 7.2 (4.5-11.0) K/mm3 RBC 4.56 (3.65-5.03) M/mm3 Hgb 12.4 (11.8-15.2) gm/dl Hct 38.5 (35.5-45.6) % MCV 85 (84-94) fl MCH 27 L (28-32) pg MCHC 32 (32-34) % RDW 15.0 (13.2-15.2) % Plt Count 173 (140-440) K/mm3 Sodium 139 (137-145) mmol/L Potassium 3.6 (3.6-5.0) mmol/L Chloride 102.1 (98-107) mmol/L Carbon Dioxide 24 (22-30) mmol/L Anion Gap 17 mmol/L BUN 18 (9-20) mg/dL Creatinine 0.8 (0.8-1.5) mg/dL Estimated GFR > 60 ml/min BUN/Creatinine Ratio 22.50 % Glucose 97 (75-100) mg/dL Calcium 8.3 L (8.4-10.2) mg/dL Magnesium 2.0 (1.7-2.3) mg/dL - EKG Data 06/10/16 01:47 Sinus, 66 bpm, normal intervals, normal axis, not morphologically consistent with STEMI, poor R-wave progression in V2, appears unchanged from prior EKG from January 2016. - Radiology Data Radiology results: image reviewed interpreted by me: X-ray the chest is negative for acute disease Critical care attestation.: If time is entered above; I have spent that time in minutes in the direct care of this critically ill patient, excluding procedure time. ED Disposition Clinical Impression: Heart palpitations Disposition: DISCHARGED TO HOME OR SELFCARE Is pt being admited?: No Does the pt Need Aspirin: No Condition: Stable Instructions: Palpitations (ED) Additional Instructions: Continue current outpatient medications. Follow up with the primary care doctor or occupational safety specialist within the next week to [address] Divina Fernandes is a local primary care doctor. Dr. Zuniga is a local occupational safety specialist. Return to the ER right away with fevers or chills, chest pain or shortness of breath, intractable nausea or vomiting, inability to tolerate liquid feeds. Referrals: PRIMARY CARE, [Primary Care Provider] - 3-5 Days DIVINA FERNANDES MD [Staff Physician] - 3-5 Days MORE ZUNIGA MD [Staff Physician] - 3-5 Days
[2016-06-10 00:50] LABS: Hematocrit 38.5 % (35.5-45.6); Hemoglobin 12.4 gm/dl (11.8-15.2); Mean Corpuscular HGB Conc 32 % (32-34); Mean Corpuscular Hemoglobin 27 pg (28-32); Mean Corpuscular Volume 85 fl (84-94); Platelet Count 173 K/mm3 (140-440); Red Blood Count 4.56 M/mm3 (3.65-5.03); White Blood Count 7.2 K/mm3 (4.5-11.0)
[2016-06-10 01:09] LABS: Anion Gap 17 mmol/L; Blood Urea Nitrogen 18 mg/dL (9-20); Calcium 8.3 mg/dL (8.4-10.2); Carbon Dioxide 24 mmol/L (22-30); Chloride 102.1 mmol/L (98-107); Glucose 97 mg/dL (75-100); Potassium 3.6 mmol/L (3.6-5.0); Sodium 139 mmol/L (137-145)
[2016-06-10 01:55] VITALS: BP 121/70
--- NOTE | 2016-06-10 10:05 | XRay Report ---
Chest 2 views: Compared to 04/17/16. History: Shortness of breath. Findings: Normal cardiomediastinal silhouette. Trachea is midline. No consolidation, pneumothorax or pleural effusion. Impression: No acute cardiopulmonary findings.
== END 2016-06-10 02:00 | disposition home or self-care (01) ==
LOC: ED 23:38
DX: R00.2 Palpitations (principal); I10 Essential (primary) hypertension; F20.9 Schizophrenia, unspecified; J18.9 Pneumonia, unspecified organism; F17.200 Nicotine dependence, unspecified, uncomplicated
CPT/HCPCS: 36415; 71020; 80048; 83735; 85027; 93005; 93010

== ENCOUNTER 2016-06-10 09:52 | Emergency (ER) | payer MEDICARE ==
[2016-06-10 10:52] LABS: Basophils % (Auto) 0.5 % (0.0-1.8); Eosinophils % (Auto) 1.9 % (0.0-4.3); Hematocrit 38.4 % (35.5-45.6); Hemoglobin 12.6 gm/dl (11.8-15.2); Mean Corpuscular HGB Conc 33 % (32-34); Mean Corpuscular Hemoglobin 27 pg (28-32); Mean Corpuscular Volume 84 fl (84-94); Platelet Count 169 K/mm3 (140-440); Red Blood Count 4.58 M/mm3 (3.65-5.03); Red Cell Distribution Width 15.1 % (13.2-15.2); White Blood Count 7.6 K/mm3 (4.5-11.0)
[2016-06-10 11:03] LABS: Alanine Aminotransferase 11 units/L (7-56); Albumin 3.7 g/dL (3.9-5); Albumin/Globulin Ratio 1.2 %; Alkaline Phosphatase 80 units/L (35-129); Anion Gap 16 mmol/L; Bilirubin,Total 0.3 mg/dL (0.1-1.2); Blood Urea Nitrogen 14 mg/dL (9-20); Calcium 8.4 mg/dL (8.4-10.2); Carbon Dioxide 23 mmol/L (22-30); Creatine Kinase 91 units/L (55-170); Glucose 99 mg/dL (75-100); INR 1.09 (0.87-1.13); Potassium 3.8 mmol/L (3.6-5.0); Sodium 135 mmol/L (137-145); Total Protein 6.8 g/dL (6.3-8.2)
[2016-06-10 11:04] LABS: Partial Thromboplastin Time 29.2 Sec. (24.2-36.6)
[2016-06-10 11:10] LABS: Bilirubin,Direct < 0.2 mg/dL (0-0.2)
[2016-06-10 12:02] VITALS: BP 156/81
--- NOTE | 2016-06-10 13:08 | Emergency Department Report ---
ED General Adult HPI - General Chief complaint: Arrhythmia/Palpitations Stated complaint: HEART PALP Time Seen by Provider: 06/10/16 10:15 Source: patient, EMS Mode of arrival: Stretcher Limitations: No Limitations - History of Present Illness Initial comments: The patient is a frequent visitor of this emergency department. I think he is been here 5 or 6 times this month. His last complaint was hard racing which she came here a few days ago for a period a fairly complete workup was obtained at that time and the patient was dismissed without any significant laboratory abnormality. He presents again to the emergency department. This time he states that he is living [place] motel. He has case management issues. He states that again "his heart has been racing". He denies chest pain. He denied leg pain or swelling. However on exam he did appear to have some calf discomfort to palpation and perhaps some differential girth. This was not bothering him prior to the exam however. He also denied dyspnea. He stated "I have a hole in my penis". On exam this appears to be the pelvic brim just above his pubic symphysis. When asked how long he has had that, he stated ever since "it was trimmed". Apparently the patient does have some some somatic delusions associated with his chronic schizophrenia. He does get Haldol decanoate once a month. He is found to be in no distress without any supplemental problems at the time of my encounter. Actually he is now asymptomatic except for the above apparent somatic symptoms. -: month(s), year(s) Consistency: intermittent, now resolved Improves with: none Worsens with: none Associated Symptoms: denies other symptoms - Related Data Home Medications Medication Instructions Recorded Confirmed Last Taken Haloperidol Decanoate [Haldol 100 mg IM QMONTH 06/10/16 06/10/16 2 Weeks Ago Decanoate] Allergies Allergy/AdvReac Type Severity Reaction Status Date / Time No Known Allergies Allergy Verified 05/25/14 04:07 ED Review of Systems ROS: Stated complaint: HEART PALP Other details as noted in HPI Constitutional: denies: chills, fever Eyes: denies: eye pain, eye discharge, vision change ENT: denies: ear pain, throat pain Respiratory: denies: cough, shortness of breath, wheezing Cardiovascular: as per HPI. denies: chest pain, dyspnea on exertion Endocrine: no symptoms reported Gastrointestinal: as per HPI. denies: abdominal pain, nausea, diarrhea Genitourinary: denies: urgency, dysuria Musculoskeletal: denies: back pain, joint swelling, arthralgia Skin: denies: rash, lesions Neurological: denies: headache, weakness, paresthesias Psychiatric: denies: anxiety, depression Hematological/Lymphatic: denies: easy bleeding, easy bruising ED Past Medical Hx - Past Medical History Hx Hypertension: Yes Hx Renal Disease: Yes Hx Psychiatric Treatment: Yes (schizophrenia) Hx HIV: No Additional medical history: PNEUMONIA, kidney problems - Surgical History Additional Surgical History: hernia removal 2010, "surgery for colon cancer" - Social History Smoking Status: Current Every Day Smoker Substance Use Type: None - Medications Home Medications: Home Medications Medication Instructions Recorded Confirmed Last Taken Type Haloperidol Decanoate [Haldol 100 mg IM QMONTH 06/10/16 06/10/16 2 Weeks Ago History Decanoate] ED Physical Exam - General Limitations: No Limitations General appearance: alert, in no apparent distress - Head Head exam: Present: atraumatic, normocephalic - Eye Eye exam: Present: normal appearance, PERRL, EOMI. Absent: scleral icterus - ENT ENT exam: Present: mucous membranes moist - Neck Neck exam: Present: normal inspection - Respiratory Respiratory exam: Present: normal lung sounds bilaterally. Absent: respiratory distress - Cardiovascular Cardiovascular Exam: Present: regular rate, normal rhythm. Absent: systolic murmur, diastolic murmur, rubs, gallop - GI/Abdominal GI/Abdominal exam: Present: soft, normal bowel sounds. Absent: distended, tenderness, guarding, rebound, rigid - Rectal Rectal exam: Present: deferred - exam: Present: normal inspection External exam: Present: normal external exam - Extremities Exam Extremities exam: Present: normal inspection, tenderness (slight calf tenderness slight differential girth ) - Back Exam Back exam: Present: normal inspection. Absent: CVA tenderness (R), CVA tenderness (L) - Neurological Exam Neurological exam: Present: alert, oriented X3, CN II-XII intact. Absent: motor sensory deficit - Psychiatric Psychiatric exam: Present: normal mood, flat affect - Skin Skin exam: Present: warm, dry, intact, normal color. Absent: rash ED Course Vital Signs 06/10/16 06/10/16 06/10/16 09:59 10:00 10:01 Pulse Rate 81 71 74 Respiratory 14 13 16 Rate Blood Pressure 138/83 O2 Sat by Pulse 97 Oximetry 06/10/16 06/10/16 06/10/16 10:10 10:20 10:30 Pulse Rate 70 72 72 Respiratory 18 18 13 Rate Blood Pressure 138/83 132/83 139/81 O2 Sat by Pulse 96 96 96 Oximetry 06/10/16 06/10/16 06/10/16 10:40 10:50 11:00 Pulse Rate Respiratory 17 17 Rate Blood Pressure 139/81 142/84 142/84 O2 Sat by Pulse 97 97 97 Oximetry 06/10/16 06/10/16 06/10/16 11:10 11:20 11:30 Pulse Rate Respiratory Rate Blood Pressure 156/81 139/84 149/87 O2 Sat by Pulse 95 98 97 Oximetry 06/10/16 06/10/16 06/10/16 11:40 11:50 12:02 Pulse Rate Respiratory 20 Rate Blood Pressure 149/87 156/81 O2 Sat by Pulse 99 98 100 Oximetry - Reevaluation(s) Reevaluation #1: Doppler examination of the right lower extremity was negative 06/10/16 13:09 Reevaluation #2: Patient is clinically stable. He is appropriate for outpatient referral. Case management consult was obtained. 06/10/16 13:10 ED Medical Decision Making - Lab Data Result diagrams: 06/10/16 10:25 06/10/16 10:25 Laboratory Results - last 24 hr 06/10/16 06/10/16 06/10/16 10:25 10:25 10:25 WBC 7.6 RBC 4.58 Hgb 12.6 Hct 38.4 MCV 84 MCH 27 L MCHC 33 RDW 15.1 Plt Count 169 Lymph % (Auto) 16.4 [place] % (Auto) 9.1 H Eos % (Auto) 1.9 Baso % (Auto) 0.5 Lymph # 1.3 [place] # 0.7 Eos # 0.1 Baso # 0.0 Seg Neutrophils % 72.1 H Seg Neutrophils # 5.5 PT 14.0 INR 1.09 APTT 29.2 D-Dimer 442.23 H Sodium 135 L Potassium 3.8 Chloride 100.0 Carbon Dioxide 23 Anion Gap 16 BUN 14 Creatinine 0.8 Estimated GFR > 60 BUN/Creatinine Ratio 17.50 Glucose 99 Calcium 8.4 Total Bilirubin 0.3 Direct Bilirubin < 0.2 AST 12 ALT 11 Alkaline Phosphatase 80 Total Creatine Kinase 91 CK-MB (CK-2) 2.0 CK-MB (CK-2) Rel Index 2.1 Troponin T < 0.010 NT-Pro-B Natriuret Pep 54.12 Total Protein 6.8 Albumin 3.7 L Albumin/Globulin Ratio 1.2 TSH Free T4 06/10/16 10:25 WBC RBC Hgb Hct MCV MCH MCHC RDW Plt Count Lymph % (Auto) [place] % (Auto) Eos % (Auto) Baso % (Auto) Lymph # [place] # Eos # Baso # Seg Neutrophils % Seg Neutrophils # PT INR APTT D-Dimer Sodium Potassium Chloride Carbon Dioxide Anion Gap BUN Creatinine Estimated GFR BUN/Creatinine Ratio Glucose Calcium Total Bilirubin Direct Bilirubin AST ALT Alkaline Phosphatase Total Creatine Kinase CK-MB (CK-2) CK-MB (CK-2) Rel Index Troponin T NT-Pro-B Natriuret Pep Total Protein Albumin Albumin/Globulin Ratio TSH 2.390 Free T4 1.19 - EKG Data -: EKG Interpreted by Vt EKG shows normal: sinus rhythm, axis, intervals, QRS complexes, ST-T waves Rate: normal - EKG Data When compared to previous EKG there are: no significant change Interpretation: no acute changes - Radiology Data Radiology results: report reviewed Critical care attestation.: If time is entered above; I have spent that time in minutes in the direct care of this critically ill patient, excluding procedure time. ED Disposition Clinical Impression: Tachycardia, Somatic delusion, Case management patient Disposition: DISCHARGED TO HOME OR SELFCARE Is pt being admited?: No Does the pt Need Aspirin: No Condition: Stable Instructions: Schizophrenia (ED), Palpitations (ED) Additional Instructions: Follow-up with primary care physician or clinic. Return as needed. Referrals: PRIMARY CAREMD [Primary Care Provider] - 3-5 Days LES GONZALEZ MD [Staff Physician] - 3-5 Days [facility] [Outside] - 3-5 Days [facility] [Provider Group] - 3-5 Days Time of Disposition: 13:11
== END 2016-06-10 16:30 | disposition home or self-care (01) ==
LOC: ED 09:52
DX: R00.0 Tachycardia, unspecified (principal); F22 Delusional disorders; I10 Essential (primary) hypertension; F20.9 Schizophrenia, unspecified; F17.200 Nicotine dependence, unspecified, uncomplicated
CPT/HCPCS: 36415; 80048; 80074; 82550; 82553; 83880; 84439; 84443; 84484; 85025; 85379; 85610; 85730; 93005; 93010; 99284

== ENCOUNTER 2016-06-24 22:39 | Emergency (ER) | payer OTHER ==
[2016-06-25 00:05] LABS: Urine Drugs of Abuse Note Disclamer
[2016-06-25 00:20] LABS: Bilirubin,Urine NEG (Negative); Blood,Urine NEG (Negative); Ketones,Urine 20 mg/dL (Negative); Leukocyte Esterase,Urine NEG (Negative); Mucus,Urine 2+ /HPF; Nitrite,Urine NEG (Negative); Protein,Urine <15 mg/dL mg/dL (Negative)
[2016-06-25 00:53] LABS: Basophils % (Auto) 0.7 % (0.0-1.8); Hematocrit 40.3 % (35.5-45.6); Hemoglobin 12.9 gm/dl (11.8-15.2); Mean Corpuscular HGB Conc 32 % (32-34); Mean Corpuscular Hemoglobin 27 pg (28-32); Mean Corpuscular Volume 85 fl (84-94); Platelet Count 190 K/mm3 (140-440); Red Blood Count 4.76 M/mm3 (3.65-5.03); Red Cell Distribution Width 15.4 % (13.2-15.2); White Blood Count 9.8 K/mm3 (4.5-11.0)
[2016-06-25 01:09] LABS: BUN/Creatinine Ratio 19.16; Calcium 9.1 mg/dL (8.4-10.2); Potassium 4.6 mmol/L (3.6-5.0)
--- NOTE | 2016-06-25 01:12 | Emergency Department Report ---
ED Psych HPI - General Chief Complaint: Psych Stated Complaint: BACK PAIN Time Seen by Provider: 06/25/16 00:48 Source: patient Mode of arrival: Stretcher - History of Present Illness Initial Comments: This is a pleasant 71-year-old gentleman who indicates he lives on [address]. He reports his last meal being at lunchtime. He states that he has history of schizophrenia. He reports compliance with getting his Haldol injections monthly. He states despite this he is always quite paranoid of someone taking his life. He states he is frustrated with living in this type of existence. He has no family support around him. He has had significant thoughts today of taking his own life. He denies any specific plan on how he would do this. He states he feels that he needs some type of behavioral inpatient stay to help him feel better. No ideation she does occasionally hear voices. He denies any visual hallucinations. Denies any homicidal ideations. Patient denies any specific pains at this time as well. He does indicate that he does have a scratch on his right leg that he recently sustained. This is being treated with Band-Aid by him currently. - Related Data Allergies Allergy/AdvReac Type Severity Reaction Status Date / Time No Known Allergies Allergy Verified 05/25/14 04:07 ED Review of Systems ROS: Stated complaint: BACK PAIN Other details as noted in HPI Comment: All other systems reviewed and negative Constitutional: denies: chills, fever Eyes: denies: eye pain, eye discharge, vision change ENT: denies: ear pain, throat pain Respiratory: denies: cough, shortness of breath, wheezing Cardiovascular: denies: chest pain, palpitations Endocrine: no symptoms reported Gastrointestinal: denies: abdominal pain, nausea, diarrhea Genitourinary: denies: urgency, dysuria Musculoskeletal: other (leg swelling). denies: back pain, joint swelling, arthralgia Skin: denies: rash, lesions Neurological: denies: headache, weakness, paresthesias Psychiatric: depression, auditory hallucinations, suicidal thoughts. denies: anxiety Hematological/Lymphatic: denies: easy bleeding, easy bruising ED Past Medical Hx - Past Medical History Hx Hypertension: Yes Hx Renal Disease: Yes Hx Psychiatric Treatment: Yes (schizophrenia) Hx HIV: No Additional medical history: PNEUMONIA, kidney problems - Surgical History Additional Surgical History: hernia removal 2010, "surgery for colon cancer" - Social History Smoking Status: Current Every Day Smoker Substance Use Type: None ED Physical Exam - General Limitations: No Limitations General appearance: alert, in no apparent distress - Head Head exam: Present: atraumatic, normocephalic - Eye Eye exam: Present: normal appearance, EOMI. Absent: scleral icterus - ENT ENT exam: Present: normal exam, normal orophraynx, mucous membranes moist, other (poor dentition) - Neck Neck exam: Present: normal inspection - Respiratory Respiratory exam: Present: normal lung sounds bilaterally. Absent: respiratory distress, wheezes, rales - Cardiovascular Cardiovascular Exam: Present: regular rate, normal rhythm. Absent: systolic murmur, diastolic murmur, rubs, gallop - GI/Abdominal GI/Abdominal exam: Present: soft, normal bowel sounds. Absent: tenderness, guarding - Rectal Rectal exam: Present: deferred - Extremities Exam Extremities exam: Present: normal inspection, pedal edema (2+ bilat.), other ( 2cm laceration anterior lower leg. No 2ndary infection.). Absent: tenderness, calf tenderness - Back Exam Back exam: Present: normal inspection - Neurological Exam Neurological exam: Present: alert, oriented X3, normal gait, other (moving all extremities appropriately.) - Psychiatric Psychiatric exam: Present: normal affect, normal mood, other (calm, well articulate, and appropriate with me.) - Skin Skin exam: Present: warm, dry, intact, normal color. Absent: rash ED Course Vital Signs 06/24/16 06/25/16 06/25/16 23:41 01:04 01:37 Temperature 98.8 F 98.6 F Pulse Rate 102 H 101 H Respiratory 18 14 15 Rate Blood Pressure 125/83 Blood Pressure 125/83 128/89 [Left] O2 Sat by Pulse 98 98 98 Oximetry 06/25/16 09:08 Temperature 97.8 F Pulse Rate 75 Respiratory 20 Rate Blood Pressure Blood Pressure 98/54 [Left] O2 Sat by Pulse 92 Oximetry - Reevaluation(s) Reevaluation #1: 06/25/16 02:27 ECG at 05 05 with sinus rhythm at 79 bpm with a normal [place] and QRS. This is a normal ECG. It is unchanged from prior ECG. Reevaluation #2: 06/25/16 04:29 Labs are stable. ECG is unremarkable. Patient did not even endorse suicidal ideation to crisis printing sales representative. I think the main issue is homelessness. I do suspect he would benefit from a psychiatric evaluation though. I am not going to place him on 1013 at this time. He is comfortable and happy to stay here. Awaiting further evaluation by psychiatry. ED Medical Decision Making - Lab Data Result diagrams: 06/25/16 01:20 06/25/16 01:20 Critical care attestation.: If time is entered above; I have spent that time in minutes in the direct care of this critically ill patient, excluding procedure time. ED Disposition Clinical Impression: Homelessness, Schizophrenia, Suicidal ideation Disposition: DC/TX PSY HOSP/PSY UNIT Is pt being admited?: No Does the pt Need Aspirin: No Condition: Stable Referrals: PRIMARY CARE, [Primary Care Provider] - 3-5 Days Time of Disposition: 04:31
[2016-06-25 02:03] LABS: Alanine Aminotransferase 14 units/L (7-56); Albumin 3.7 g/dL (3.9-5); Albumin/Globulin Ratio 1.3 %; Alkaline Phosphatase 77 units/L (35-129); Anion Gap 16 mmol/L; BUN/Creatinine Ratio 21.81; Bilirubin,Total 0.4 mg/dL (0.1-1.2); Blood Urea Nitrogen 24 mg/dL (9-20); Carbon Dioxide 25 mmol/L (22-30); Glucose 89 mg/dL (75-100); Potassium 4.3 mmol/L (3.6-5.0); Sodium 138 mmol/L (137-145); Total Protein 6.6 g/dL (6.3-8.2)
[2016-06-25 02:23] LABS: Basophils % (Auto) 0.5 % (0.0-1.8); Hematocrit 37.5 % (35.5-45.6); Hemoglobin 12.2 gm/dl (11.8-15.2); Mean Corpuscular HGB Conc 33 % (32-34); Mean Corpuscular Hemoglobin 27 pg (28-32); Mean Corpuscular Volume 83 fl (84-94); Platelet Count 175 K/mm3 (140-440); Red Blood Count 4.52 M/mm3 (3.65-5.03); Red Cell Distribution Width 15.1 % (13.2-15.2); White Blood Count 8.8 K/mm3 (4.5-11.0)
--- NOTE | 2016-06-25 13:56 | Consultation ---
History of Present Illness - Reason for Consult Consult date: 06/25/16 Reason for consult: SI with AH - History of Present Psychiatric Illness CHIEF COMPLAINT IN PATIENTS WORDS: "I'm sick and tired of this shit" HISTORY OF PRESENT ILLNESS REQUIRING ADMISSION TO INPATIENT LEVEL OF CARE: (Describe the onset of Illness, Intensity of Symptoms, and Circumstances Leading to Admission) This is a 71-year-old undomiciled male with a previous diagnosis of schizophrenia who presented to the ER expressing suicidal thoughts and command auditory hallucinations. Patient was recently at [facility] for sore presentation several weeks ago. He was transferred to [facility] for care. It appears that he was discharged from there and is now again homeless. Patient notes that he had some transitional housing several weeks ago after discharge from [facility] however, he is no longer in that transitional home currently. Today he notes that he feels threatened due to the trauma he is incurred on the streets. Consequently, he is noting worsening of his symptoms of schizophrenia, most notably auditory hallucinations that are command type. Additionally, he has suicidal thoughts with no clear plan. PSYCHIATRIC REVIEW OF SYSTEMS: Depression: +SI, hopeless, sleep difficulties Clarissa: none noted Psychosis: + AV, no VH. No grandiosity and no paranoia Anxiety/ OCD/ PTSD: hypervigilant, worried about being assaulted Suicidality: Suicidal thoughts without a plan Other Self-Injurious Behavior: No self-injurious behaviors noted Violent/ Aggressive Behavior: no Recent aggression and property damage CURRENT MEDICATIONS: ( Psychiatric and Non-psychiatric ) He notes that he is adherent to his haloperidol; however, the last dose of haloperidol decanoate is unknown ALLERGIES: NKDA PAST PSYCHIATRIC HISTORY: ( Prior Treatment, Precipitating Factors, Diagnosis, and Course of Treatment ) No previous treatment history in inpatient hospitalization setting at [facility] and [facility] PAST PSYCHIATRIC MEDICATION TRIALS: Haldol MEDICAL HISTORY: (Chronic and Acute Illnesses, Current Medical Treatment, Recent Hospitalizations) HISTORY OF TRAUMA/ABUSE: Recent trauma while homeless on the streets DRUG / ALCOHOL ABUSE HISTORY: Denies Detoxification / Withdrawal: none noted clinical examination SOCIAL HISTORY: (Educational Level, Employment, Support System, Interpersonal Relationships) Currently homeless and no social support. Patient does report he has family; however, they're not involved in his care FAMILY HISTORY: Psychiatric/Substance Abuse Unknown MENTAL STATUS EXAM: Consciousness: alert and responding to external stimuli General Appearance: In hospital gown, adentitious Eye Contact: poor Attitude / Behavior: guarded Sensorium: clear Psychomotor & Musculoskeletal Activity: Lying comfortably on hospital bed Mood: sad/depressed Affect: constricted Speech / Language: Fluent, mild slurring due to lack of teeth otherwise normal rate and rhythm tone Thought Processes: Linear, logical, goal directed Thought Content: + SI without a plan. no HI Perception: +AV, No VH, no paranoia Orientation: person, place, time, situation Concentration/Attention WORLD backwards: did not test Memory Immediate Digit Span (6-2-1-9-3-1-5): did not test Memory Recent (Objects: Lamp, Umbrella, and Telephone) Patient Response: did not test Memory Remote (Name as many presidents as you can starting with current one and going backwards) Patient Response: did not test Judgment What would you do if you smelled smoke in a crowded movie theater?: fair Insight: fair Intelligence Vocabulary, general fund of knowledge, educational level: Average Capacity of ADLs: Independent STRENGTHS: PSYCHOSOCIAL AND ENVIRONMENTAL STRESSORS: Homeless and no social support ADMITTING DIAGNOSES Psychiatric: Schizophrenia, Paranoid Type Evidence for Bipolar disorder Medical: Adentitious INITIAL PLAN OF CARE AND TREATMENT GOALS: Start patient on Haloperidol 5 mg po qhs INITIAL DISPOSITION PLAN: Maintain 1013 and facilitate transfer to an inpatient psychiatric facility Obtain information about last Haloperidol Deconate Medications and Allergies Allergies Allergy/AdvReac Type Severity Reaction Status Date / Time No Known Allergies Allergy Verified 05/25/14 04:07 Mental Status Exam - Vital signs Last Vital Signs Temp 97.8 F 06/25/16 09:08 Pulse 75 06/25/16 09:08 Resp 20 06/25/16 09:08 BP 98/54 06/25/16 09:08 Pulse Ox 92 06/25/16 09:08 Results Result Diagrams: 06/25/16 01:20 06/25/16 01:20 Abnormal lab results 06/25/16 06/25/16 06/25/16 Range/Units 00:39 00:39 01:20 MCV 83 L (84-94) fl MCH 27 L 27 L (28-32) pg RDW 15.4 H (13.2-15.2) % [place] % (Auto) 8.6 H 8.8 H (0.0-7.3) % BUN 23 H (9-20) mg/dL Albumin (3.9-5) g/dL Salicylates (2.8-20.0) mg/dL 06/25/16 06/25/16 Range/Units 01:20 01:20 MCV (84-94) fl MCH (28-32) pg RDW (13.2-15.2) % [place] % (Auto) (0.0-7.3) % BUN 24 H (9-20) mg/dL Albumin 3.7 L (3.9-5) g/dL Salicylates < 0.3 L (2.8-20.0) mg/dL All other labs normal.
[2016-06-25] MEDS: HALDOL PO SCH (22:00)
--- NOTE | 2016-06-26 08:28 | Progress Note ---
Subjective - Reason for Consult Consult date: 06/26/16 Reason for consult: Psychiatry Follow-up - Chief Complaint Chief complaint: "I don't feel secure" This is a 71-year-old undomiciled male with a previous diagnosis of schizophrenia who presented to the ER expressing suicidal thoughts and command auditory hallucinations. Today patient is delusional, paranoid and experiencing auditory hallucinations. Patient feels that he isn't "secure" and someone or something is out to get him. He states that the voices is saying, "You are not safe." The patient cannot elaborate why he isn't safe at this time. He stated he came to [facility] because his circulatory system was not "right." He states that this isn't an issue now. He stated that he receive the Haldol injection monthly. He could not say when he received his last injection. He denies SI/HI' s or VH's at this time. Mental Status Exam - Vital signs Last Vital Signs Temp 97.7 F 06/26/16 07:35 Pulse 85 06/26/16 07:35 Resp 15 06/26/16 07:35 BP 104/68 06/26/16 07:35 Pulse Ox 93 06/26/16 07:35 Assessment and Plan Impression: Hx of Schizophrenia. Patient is delusional, paranoid and experiencing auditory hallucinations currently. He denies SI/HI's or VH's. Recommdendation: Maintain 1013 and facilitate transfer to an inpatient psychiatric facility. Continue Haldol 5 mg PO HS. Obtain information about last Haloperidol Deconate.
[2016-06-26] MEDS: HALDOL PO SCH (22:46)
--- NOTE | 2016-06-27 08:16 | Progress Note ---
Subjective - Reason for Consult Consult date: 06/27/16 Reason for consult: Psychiatry Follow-up - Chief Complaint Chief complaint: "my head isn't on tight" This is a 71-year-old undomiciled male with a previous diagnosis of schizophrenia who presented to the ER expressing suicidal thoughts and command auditory hallucinations. Today patient is still delusional and paranoid. He states that the voices he hear are not as bad as yesterday, but still apparent. The patient could not describe the content of the voices. He explained the paranoia he's experiencing is a result from "My head isn't on tight." He denies SI/HI's or VH's at this time. Mental Status Exam - Vital signs Last Vital Signs Temp 97.7 F 06/27/16 07:21 Pulse 58 L 06/27/16 07:21 Resp 17 06/27/16 07:21 BP 106/48 06/27/16 07:21 Pulse Ox 96 06/27/16 07:21 - Exam Orientation: person Affect: flat Mood: congruent with affect Thought content: delusions Thought Process: Circumstantial Perceptions: auditory Speech: normal rate and pattern Concentration: focused Motor activity: other (Ambulatory) Level of consciousness: alert Memory: Recent Impaired Sleep Symptoms: None Assessment and Plan Impression: Hx of Schizophrenia. Patient is delusional and paranoid. He states that the voices he hear are not as bad as yesterday, but they are still apparent. He denies SI/HI's or VH's. Patient is homeless. Recommdendation: Maintain 1013 with possible placement to inpatient psychiatric facility or outpatient services. Modified Haldol to 10 mg PO HS. [employer]razzo Mechanic Helper involved, possible placement will be needed.
[2016-06-27] MEDS ORDERED: HALDOL PO SCH (22:00)
[2016-06-28 08:17] VITALS: BP 117/78
--- NOTE | 2016-06-28 17:52 | Progress Note ---
Subjective - Reason for Consult Consult date: 06/28/16 Reason for consult: psychiatric follow up - Chief Complaint Chief complaint: "my head isn't on tight" This is a 71-year-old undomiciled male with a previous diagnosis of schizophrenia who presented to the ER expressing suicidal thoughts and command auditory hallucinations. Today, the patient reports his main issue is needing bus fare. He discussed his lack of resources and desire to see a social media strategist. He denies SI/HI's or VH's at this time. He is interacting appropriately with staff. He does not appear to be responding to internal stimuli. He reports paranoia is chronic and not preventing him from carrying out his daily activities. Mental Status Exam - Vital signs Last Vital Signs Temp 98.2 F 06/28/16 07:20 Pulse 74 06/28/16 07:20 Resp 18 06/28/16 07:20 BP 117/78 06/28/16 07:20 Pulse Ox 96 06/28/16 07:20 - Exam Orientation: time, place, person Affect: normal Mood: appropriate Thought content: paranoia (chronic) Thought Process: Intact Perceptions: none (denies) Speech: normal rate and pattern Concentration: focused Motor activity: normal Level of consciousness: alert Memory: Intact Sleep Symptoms: None Interaction: cooperative, pleasant Assessment and Plan Impression: Hx of Schizophrenia. Patient's paranoia is chronic. While he denies the auditory hallucinations, he endorses the chronicity of his schizophrenia and lack of acuity currently. He has significant psychosocial stressors including homelessness and no funds for bus fare. He denies SI/HI's or VH's. Recommendation: There are no acute safety concerns. Paranoia is not distressing or preventing him from attending to his activities of daily living and does not present as a danger of harm to himself or others. The social media strategist for the ER was contacted by the mental health solar sales representative and assessor. Rescind [address]
== END 2016-06-28 14:46 | disposition home or self-care (01) ==
LOC: EEVIPCON 22:39 → ED 22:39
DX: R45.851 Suicidal ideations (principal); F20.9 Schizophrenia, unspecified; I10 Essential (primary) hypertension; F17.200 Nicotine dependence, unspecified, uncomplicated; Z59.0 Homelessness
CPT/HCPCS: 36415; 80048; 80053; 80307; 80320; 81001; 84443; 85025; 99284; G0480

== ENCOUNTER 2016-07-03 20:23 | Emergency (ER) | payer SELFPAY ==
[2016-07-03] MEDS ORDERED: TYLENOL ONE (21:32)
[2016-07-03 21:36] VITALS: BP 126/85
[2016-07-03] MEDS ORDERED: TYLENOL PO ONE (21:36)
[2016-07-04] MEDS ORDERED: TORADOL IM ONE (04:35)
--- NOTE | 2016-07-04 04:35 | Emergency Department Report ---
ED Back Pain/Injury HPI - General Chief Complaint: Back Pain/Injury Stated Complaint: BACK PAIN Time Seen by Provider: 07/04/16 04:29 Source: patient Limitations: No Limitations - History of Present Illness Initial Comments: Patient here reported that he is having pain to the left side of his back lower area. Denies any trauma. Denies any nausea or vomiting. Pain is 10 out of 10. He said he's had similar pain in the past. Patient says he is homeless. Denies any direct trauma to back. Denies any urinary burning frequency or urgency. Denies any loss of bowel or bladder function. Denies any fever or chills. Denies any abdominal or testicular pain. MD Complaint: back pain -: This evening Similar Symptoms Previously: Yes Place: street Radiation: none Severity: severe Severity scale (0 -10): 10 Quality: aching Consistency: intermittent Improves With: immobilization, walking Worsens With: movement, walking Context: unknown Associated Symptoms: denies: confusion, weakness, chest pain, numbness, difficulty walking, cough, difficulty urinating, diaphoresis, incontinence, fever/chills, constipation, headaches, abdominal pain, loss of appetite, malaise , nausea/vomiting, rash, seizure, shortness of breath, syncope Treatments Prior to Arrival: other (none) - Related Data Previous Rx's Medication Instructions Recorded Last Taken Type Ibuprofen [Motrin] 600 mg PO Q8H PRN #15 tablet 07/04/16 Unknown Rx Allergies Allergy/AdvReac Type Severity Reaction Status Date / Time No Known Allergies Allergy Verified 05/25/14 04:07 ED Review of Systems ROS: Stated complaint: BACK PAIN Other details as noted in HPI Comment: All other systems reviewed and negative Constitutional: denies: chills, fever ENT: denies: throat pain Respiratory: no symptoms reported Cardiovascular: denies: chest pain, palpitations, edema, syncope Gastrointestinal: denies: abdominal pain, nausea, vomiting, diarrhea Musculoskeletal: back pain. denies: joint swelling, arthralgia Skin: denies: rash Neurological: denies: headache, numbness, paresthesias, confusion, abnormal gait , vertigo ED Past Medical Hx - Past Medical History Previous Medical History?: Yes Hx Hypertension: Yes Hx Renal Disease: Yes Hx Psychiatric Treatment: Yes (schizophrenia) Hx HIV: No Additional medical history: PNEUMONIA, kidney problems - Surgical History Past Surgical History?: Yes Additional Surgical History: hernia removal 2010, "surgery for colon cancer" - Family History Family history: hypertension - Social History Smoking Status: Current Every Day Smoker Substance Use Type: None - Medications Home Medications: Home Medications Medication Instructions Recorded Confirmed Last Taken Type Ibuprofen [Motrin] 600 mg PO Q8H PRN #15 tablet 07/04/16 Unknown Rx ED Physical Exam - General Limitations: No Limitations General appearance: alert, in no apparent distress - Head Head exam: Present: atraumatic, normocephalic, normal inspection - Eye Eye exam: Present: normal appearance, PERRL, EOMI. Absent: periorbital swelling , periorbital tenderness Pupils: Present: normal accommodation - ENT ENT exam: Present: normal exam, normal orophraynx, mucous membranes moist, TM's normal bilaterally, normal external ear exam - Neck Neck exam: Present: normal inspection, full ROM. Absent: tenderness, lymphadenopathy - Respiratory Respiratory exam: Present: normal lung sounds bilaterally. Absent: respiratory distress, chest wall tenderness - Cardiovascular Cardiovascular Exam: Present: regular rate, normal rhythm, normal heart sounds - GI/Abdominal GI/Abdominal exam: Present: soft, normal bowel sounds. Absent: distended, tenderness, guarding, rebound, rigid - Extremities Exam Extremities exam: Present: normal inspection, full ROM, normal capillary refill. Absent: tenderness, pedal edema, joint swelling, calf tenderness - Back Exam Back exam: Present: normal inspection, full ROM. Absent: tenderness, CVA tenderness (R), CVA tenderness (L), muscle spasm, paraspinal tenderness, vertebral tenderness, rash noted - Neurological Exam Neurological exam: Present: alert, oriented X3, normal gait, reflexes normal. Absent: motor sensory deficit - Expanded Neurological Exam Expanded Neurological exam: Absent: innattentive, memory loss-remote event, memory loss- recent event, ataxia, receptive aphasia, expressive aphasia, total aphasia, tremor, protecting the airway Patient oriented to: Present: person, place, time Speech: Present: fluid speech Cranial nerves: EOM's Intact: Normal, Gag Reflex: Normal, Nystagmus: Normal, Facial Sensation: Normal Cerebellar function: Romberg: Normal Upper motor neuron: Pronator Drift: Normal, Sensory Extinction: Normal Sensory exam: Upper Extremity Light Touch: Normal, Upper Extremity Temperature: Normal, UE 2 Point Discrimination: Normal, Lower Extremity Light Touch: Normal, Lower Extremity Temperature: Normal, LE 2 Point Discrimination: Normal Motor strength exam: RUE: 5, LUE: 5, RLE: 5, LLE: 5 DTR: bicep (R): 2+, bicep (L): 2+, tricep (R): 2+, tricep (L): 2+, knee (R): 2+ , knee (L): 2+, ankle (R): 2+, ankle (L): 2+ Best Eye Response (Chloé): (4) open spontaneously Best Motor Response (Chloé): (6) obeys commands Best Verbal Response (Chloé): (5) oriented Chloé Total: 15 - Psychiatric Psychiatric exam: Present: normal affect, normal mood - Skin Skin exam: Present: warm, dry, intact, normal color. Absent: rash ED Course Vital Signs 07/03/16 21:34 Temperature 98.6 F Pulse Rate 91 H Respiratory 18 Rate Blood Pressure 126/85 O2 Sat by Pulse 97 Oximetry - Reevaluation(s) Reevaluation #1: 07/04/16 08:05 Patient given Toradol 60 mg IM and emergency room. Prior to that patient was given Tylenol 650 mg in triage area. ED Medical Decision Making - Lab Data Labs 07/04/16 04:49 Urine Color Nicky Urine Turbidity Clear Urine pH 5.0 Ur Specific [place] 1.031 H Urine Protein 30 mg/dl Urine Glucose (UA) Neg Urine Ketones Tr Urine Blood Neg Urine Nitrite Neg Urine Bilirubin Neg Urine Urobilinogen 4.0 Ur Leukocyte Esterase Neg Urine WBC (Auto) 4.0 Urine RBC (Auto) 6.0 U Epithel Cells (Auto) 1.0 Hyaline Casts 1 Urine Mucus 3+ - Medical Decision Making ED course: Patient here with lower back pain. Urinalysis was negative for bacterial infection. He has trace ketone. Patient was orally hydrated in emergency room. Patient diagnosis is left lower back pain and lumbar strain. No vertebral tenderness or neurological exam intact. Given Tylenol 650 mg by mouth in triage and Toradol 60 mg IM and emergency room which relieved this pain. The patient his urine results. Patient discharged home in stable condition with prescription for Motrin. Critical care attestation.: If time is entered above; I have spent that time in minutes in the direct care of this critically ill patient, excluding procedure time. ED Disposition Clinical Impression: Lumbar strain Qualifiers: Encounter type: initial encounter Qualified Code(s): S39.012A - Strain of muscle, fascia and tendon of lower back, initial encounter Pain in lower back Qualifiers: Chronicity: acute Back pain laterality: left Sciatica presence: without sciatica Qualified Code(s): M54.5 - Low back pain Disposition: DISCHARGED TO HOME OR SELFCARE Is pt being admited?: No Does the pt Need Aspirin: No Condition: Stable Instructions: Low Back Strain (ED), Back Pain (ED), Core Strengthening Exercises (GEN) Additional Instructions: Please rest for 72 hours Take Motrin as prescribed for back pain Prescriptions: Ibuprofen [Motrin] 600 mg PO Q8H PRN #15 tablet PRN Reason: Pain Referrals: LISSETTE LOU MD [Staff Physician] - 2-3 Days [facility] [Outside] - 3-5 Days PRIMARY CAREMD [Primary Care Provider] - 2-3 Days
[2016-07-04 05:42] LABS: Bilirubin,Urine NEG (Negative); Blood,Urine NEG (Negative); Ketones,Urine TR mg/dL (Negative); Leukocyte Esterase,Urine NEG (Negative); Mucus,Urine 3+ /HPF; Nitrite,Urine NEG (Negative)
== END 2016-07-04 07:43 | disposition home or self-care (01) ==
LOC: ED 20:23
DX: S39.012A Strain of muscle, fascia and tendon of lower back, initial encounter (principal); M54.5 Low back pain; I10 Essential (primary) hypertension; F20.9 Schizophrenia, unspecified; J18.9 Pneumonia, unspecified organism; F17.200 Nicotine dependence, unspecified, uncomplicated
CPT/HCPCS: 81001; 87086; 96372; 99283; J1885

== ENCOUNTER 2016-07-10 01:10 | Emergency (ER) | payer SELFPAY ==
[2016-07-10 03:18] LABS: Basophils % (Auto) 0.6 % (0.0-1.8); Eosinophils % (Auto) 1.1 % (0.0-4.3); Hematocrit 40.3 % (35.5-45.6); Mean Corpuscular HGB Conc 32 % (32-34); Mean Corpuscular Hemoglobin 27 pg (28-32); Mean Corpuscular Volume 84 fl (84-94); Platelet Count 223 K/mm3 (140-440); Red Blood Count 4.78 M/mm3 (3.65-5.03); Red Cell Distribution Width 15.7 % (13.2-15.2); White Blood Count 9.6 K/mm3 (4.5-11.0)
[2016-07-10 03:38] LABS: Anion Gap 18 mmol/L; BUN/Creatinine Ratio 25.55; Blood Urea Nitrogen 23 mg/dL (9-20); Carbon Dioxide 27 mmol/L (22-30); Chloride 99.4 mmol/L (98-107); Creatine Kinase 464 units/L (55-170); Glucose 89 mg/dL (75-100); Potassium 4.1 mmol/L (3.6-5.0); Sodium 140 mmol/L (137-145)
[2016-07-10 03:39] LABS: Bilirubin,Urine NEG (Negative); Blood,Urine NEG (Negative); Ketones,Urine TR mg/dL (Negative); Leukocyte Esterase,Urine NEG (Negative); Mucus,Urine 3+ /HPF; Nitrite,Urine NEG (Negative); Protein,Urine <15 mg/dL mg/dL (Negative)
[2016-07-10] MEDS ORDERED: TORADOL IM ONE (08:13)
--- NOTE | 2016-07-10 08:30 | Emergency Department Report ---
HPI - General Chief Complaint: Back Pain/Injury Time Seen by Provider: 07/10/16 07:44 - HPI HPI: This is a 71-year-old male presents to the emergency department with complaint of low back pain. The patient says that the pain has been going on for the past 3 weeks but at some point last night it just became much more severe. He is able to ambulate but says that he has to go very slowly as movement appears to exacerbate it. He denies any problems with bowel or bladder , numbness or paresthesias or any neurological deficits. He denies any trauma. He denies any past medical history. He has not taken anything for symptoms prior to presentation and did not receive anything in route with EMS. He does not have a primary care doctor. No recent travel or sick contacts at home. ED Past Medical Hx - Past Medical History Previous Medical History?: Yes Hx Hypertension: Yes Hx Renal Disease: Yes Hx Psychiatric Treatment: Yes (schizophrenia) Hx HIV: No Additional medical history: PNEUMONIA, kidney problems - Surgical History Past Surgical History?: Yes Additional Surgical History: hernia removal 2010, "surgery for colon cancer" - Social History Smoking Status: Current Every Day Smoker Substance Use Type: None - Medications Home Medications: Home Medications Medication Instructions Recorded Confirmed Last Taken Type Ibuprofen [Motrin 600 MG tab] 600 mg PO Q8H PRN #15 tablet 07/10/16 Unknown Rx ED Review of Systems ROS: Stated complaint: BACK PAIN Other details as noted in HPI Comment: All other systems reviewed and negative Constitutional: denies: chills, fever Eyes: denies: eye pain, eye discharge, vision change ENT: denies: ear pain, throat pain Respiratory: denies: cough, shortness of breath, wheezing Cardiovascular: denies: chest pain, palpitations Gastrointestinal: denies: abdominal pain, nausea, diarrhea Genitourinary: denies: urgency, dysuria Musculoskeletal: back pain. denies: arthralgia Skin: denies: rash, lesions Neurological: denies: headache, weakness, numbness, paresthesias Physical Exam - Physical Exam Vital Signs: Vital Signs 07/10/16 07/10/16 07/10/16 02:14 07:51 07:52 Temperature 98.5 F 97.6 F Pulse Rate 74 Respiratory 18 16 16 Rate Blood Pressure 141/88 Blood Pressure 104/50 [Left] O2 Sat by Pulse 98 97 97 Oximetry Physical Exam: GENERAL: The patient is well-developed well-nourished. HEENT: Normocephalic. Atraumatic. Extraocular motions are intact. Patient has moist mucous membranes. Pupils equal reactive to light bilaterally. NECK: Supple. Trachea is midline. CHEST/LUNGS: Clear to auscultation. There is no respiratory distress noted. HEART/CARDIOVASCULAR: Regular. There is no tachycardia. There is no gallop rub or murmur. ABDOMEN: Abdomen is soft, nontender. Patient has normal bowel sounds. There is no abdominal distention. SKIN: Skin is warm and dry. NEURO: The patient is awake, alert. The patient is cooperative. The patient has no focal neurologic deficits. The patient has normal speech and gait. DTR +2 over 4 patellar bilaterally. MUSCULOSKELETAL: There is no tenderness or deformity. There is no limitation range of motion. There is no evidence of acute injury. Muscle strength 5 out of 5 for upper and lower extremities including EHL bilaterally. BACK: No midline thoracic or lumbar tenderness to palpation or deformity. There is some reproducible lumbar paraspinal tenderness to palpation. ED Course Vital Signs 07/10/16 07/10/16 07/10/16 02:14 07:51 07:52 Temperature 98.5 F 97.6 F Pulse Rate 74 Respiratory 18 16 16 Rate Blood Pressure 141/88 Blood Pressure 104/50 [Left] O2 Sat by Pulse 98 97 97 Oximetry ED Medical Decision Making - Lab Data Result diagrams: 07/10/16 02:58 07/10/16 02:58 - Medical Decision Making 71-year-old male presents to the emergency department with a complaint of a acute on chronic low back pain. It is been going on for the past 3 weeks but worsened last night. Physical exam there is no focal, motor or sensory deficits and his cranial nerves are intact. There is no problem with bowel or bladder, numbness or paresthesias or any neurological deficits. He does not appear to have any of the emergent back condition such as cauda equina, cord compression syndrome or epidural abscess. Patient was seen ambulatory in the emergency department and appears stable. Since there was no trauma or any midline discomfort or any neurological deficits, I did not feel that any imaging was warranted at this time. He was given a shot of Toradol with some improvement of his discomfort. Labs of been unremarkable including no signs of infection, urinary tract infection, alert light abnormalities, renal insufficiency or glucose abnormalities. He'll be given referrals for primary care and or ortho. He will return to the ER with any worsening of symptoms or any acute distress. - Differential Diagnosis back strain/sprain, contusion, muscle spasm, uti Critical Care Time: No Critical care attestation.: If time is entered above; I have spent that time in minutes in the direct care of this critically ill patient, excluding procedure time. ED Disposition Clinical Impression: Pain in lower back Qualifiers: Chronicity: unspecified Back pain laterality: bilateral Sciatica presence: without sciatica Qualified Code(s): M54.5 - Low back pain Disposition: DISCHARGED TO HOME OR SELFCARE Is pt being admited?: No Condition: Stable Instructions: Back Pain (ED) Additional Instructions: Please follow-up with a primary care doctor in the next few days. I referral for a local orthopedist, Dr. Bains, in case she needs to follow-up regarding her back pain. Return to the emergency department with any worsening of your symptoms or any acute distress. Prescriptions: Ibuprofen [Motrin 600 MG tab] 600 mg PO Q8H PRN #15 tablet PRN Reason: Pain Referrals: PRIMARY CARE, [Primary Care Provider] - 3-5 Days HAJA BAINS MD [Staff Physician] - 3-5 Days [facility] [Outside] - 3-5 Days Time of Disposition: 11:07
[2016-07-10 11:40] VITALS: BP 95/57
== END 2016-07-10 11:40 | disposition home or self-care (01) ==
LOC: ED 01:10
DX: M54.5 Low back pain (principal); I10 Essential (primary) hypertension; N28.9 Disorder of kidney and ureter, unspecified; F20.9 Schizophrenia, unspecified; J18.9 Pneumonia, unspecified organism; F17.200 Nicotine dependence, unspecified, uncomplicated
CPT/HCPCS: 36415; 80048; 81001; 82140; 82550; 85025; 87086; 96372; 99284; J1885

== ENCOUNTER 2016-09-28 09:08 | Emergency (ER) | payer OTHER ==
[2016-09-28 10:34] LABS: Basophils % (Auto) 0.2 % (0.0-1.8); Eosinophils % (Auto) 0.3 % (0.0-4.3); Hematocrit 42.5 % (35.5-45.6); Hemoglobin 13.6 gm/dl (11.8-15.2); Mean Corpuscular HGB Conc 32 % (32-34); Mean Corpuscular Hemoglobin 28 pg (28-32); Mean Corpuscular Volume 86 fl (84-94); Platelet Count 157 K/mm3 (140-440); Red Blood Count 4.94 M/mm3 (3.65-5.03); Red Cell Distribution Width 17.3 % (13.2-15.2); White Blood Count 8.9 K/mm3 (4.5-11.0)
[2016-09-28 10:50] LABS: Urine Drugs of Abuse Note Disclamer
[2016-09-28 10:50] LABS: Anion Gap 18 mmol/L; Blood Urea Nitrogen 20 mg/dL (9-20); Calcium 8.5 mg/dL (8.4-10.2); Carbon Dioxide 26 mmol/L (22-30); Chloride 100.1 mmol/L (98-107); Glucose 81 mg/dL (75-100); Sodium 140 mmol/L (137-145)
[2016-09-28 11:18] LABS: Bilirubin,Urine NEG (Negative); Blood,Urine NEG (Negative); Ketones,Urine NEG (Negative); Leukocyte Esterase,Urine NEG (Negative); Mucus,Urine FEW /HPF; Nitrite,Urine NEG (Negative); Protein,Urine <15 mg/dL mg/dL (Negative); Urobilinogen,Urine < 2.0 mg/dL (<2.0)
--- NOTE | 2016-09-28 18:35 | Emergency Department Report ---
HPI - General Chief Complaint: Psych Time Seen by Provider: 09/28/16 11:49 - HPI HPI: Patient presented to the ED with suicidal ideation history of a long-standing mental illness such as depression or anxiety. Patient doesn't have any current plan. ED Past Medical Hx - Past Medical History Previous Medical History?: Yes Hx Hypertension: Yes Hx Renal Disease: Yes Hx Psychiatric Treatment: Yes (schizophrenia) Hx HIV: No Additional medical history: PNEUMONIA, kidney problems - Surgical History Past Surgical History?: Yes Additional Surgical History: hernia removal 2010, "surgery for colon cancer" - Social History Smoking Status: Current Every Day Smoker Substance Use Type: Alcohol, Prescribed ED Review of Systems ROS: Stated complaint: MH EVAL/PLACEMENT Other details as noted in HPI Comment: All other systems reviewed and negative Neurological: weakness Psychiatric: anxiety, depression Physical Exam - Physical Exam Vital Signs: Vital Signs 09/28/16 09/28/16 10:07 12:07 Temperature 98.6 F Pulse Rate 92 H Respiratory 16 16 Rate Blood Pressure 129/83 O2 Sat by Pulse 96 Oximetry Physical Exam: Gen. alert and oriented 3 HEENT PERRLA, EOMI Lungs clear bilaterally bilaterally Cardiovascular heart regular rate and rhythm normal S1-S2 Abdomen soft nontender nondistended Extremities no swelling Neuro alert no focal weakness Psych: Depressed mood with suicidal ideation Skin no rash ED Course Vital Signs 09/28/16 09/28/16 10:07 12:07 Temperature 98.6 F Pulse Rate 92 H Respiratory 16 16 Rate Blood Pressure 129/83 O2 Sat by Pulse 96 Oximetry - Reevaluation(s) Reevaluation #1: 10/02/16 01:23 Patient was seen by psych which recommended to resent and 13 and discharged patient home. Patient to follow up with [facility]. He voiced understanding and agreed with the plan. Denies SI or HI at discharge. ED Medical Decision Making - Lab Data Result diagrams: 09/28/16 10:17 09/28/16 10:17 Critical care attestation.: If time is entered above; I have spent that time in minutes in the direct care of this critically ill patient, excluding procedure time. ED Disposition Clinical Impression: Schizophrenia, Suicidal ideation Disposition: DC-01 TO HOME OR SELFCARE Is pt being admited?: No Does the pt Need Aspirin: No Condition: Stable Referrals: PRIMARY CARE, [Primary Care Provider] - 3-5 Days
--- NOTE | 2016-09-29 15:47 | Consultation ---
History of Present Illness - Reason for Consult Consult date: 09/29/16 Reason for consult: Mental Health Evaluation Requesting physician: TIA DUGGAN - Chief Complaint Chief complaint: "I need a place to stay" - History of Present Psychiatric Illness Patient presented to the ED with suicidal ideation history of a long-standing mental illness such as depression or anxiety. This patient is known to me. Today patient is calm and cooperative during the assessment. He stated that he does not have SI's at this time, but instead would like another place to stay. He stated that he lost his ID. Per the patient, at his current residence the staff/occupants are not nice people. He plan not to return there. He denies SI/ HI's, AVH's, and depression. He denies recreational drug use and excessive alcohol consumption (etoh). Patient stated that he get the Haldol shot monthly. Last injection was last week (09/21/2016). Medications and Allergies Allergies Allergy/AdvReac Type Severity Reaction Status Date / Time No Known Allergies Allergy Verified 05/25/14 04:07 Past psychiatric history - Past Medical History Past Medical History: hypertension, other (Renal Disease) Past Surgical History: No surgical history - past Psychiatric treatment and history Psych: Schizophrenia psychiatric treatment history: Patient stated multiple inpatient admissions. Denies a fam psy hx. - Social History Social history: other (Resides a transitional home) Mental Status Exam - Vital signs Last Vital Signs Temp 98.0 F 09/28/16 20:56 Pulse 79 09/28/16 20:56 Resp 20 09/28/16 20:57 BP 108/64 09/28/16 20:56 Pulse Ox 97 09/28/16 20:57 Results Result Diagrams: 09/28/16 10:17 09/28/16 10:17 All other labs normal. Assessment and Plan Assessment and plan: Impression: Historical Dx: Schizophrenia, Paranoid type. Today patient is calm and cooperative during the assessment. He denies SI/HI's and AVH's. Recommendation/Plan: Evaluate 1013 in 24 hours to determine proper dispo. Patient stated that he can follow-up with the [place] outpatient psy services. Camp Manager involvement, patient may need placement.
--- NOTE | 2016-09-30 16:26 | Progress Note ---
Subjective - Reason for Consult Consult date: 09/30/16 Reason for consult: follow up - Chief Complaint Chief complaint: "I'm doing ok" Patient presented to the ED with suicidal ideation history of a long-standing mental illness such as depression or anxiety. Today patient is calm and cooperative during the assessment. He stated that he does not have SI's at this time, but instead would like another place to stay. He stated that he lost his ID. He plans not to return to his residence. He denies SI/HI's, AVH's. He reports depression. Last haldol injection was last week (09/21/2016). Mental Status Exam - Vital signs Last Vital Signs Temp 97.8 F 09/30/16 09:15 Pulse 55 L 09/30/16 09:15 Resp 14 09/30/16 09:15 BP 116/73 09/30/16 09:15 Pulse Ox 96 09/30/16 09:15 - Exam Narrative exam: ROS: (-) psychosis, (+) depression MSE: Appearance: calm, cooperative Behavior: regular eye contact Speech: regular rate and tone Mood: depressed Affect: congruent to mood Thought Process: circumstantial Thought Content: denies HI/SI's and AVH's Motor Activity: ambulatory Cognition: A/Ox 3 Insight: fair Judgment: fair Assessment and Plan Impression: Historical Dx: Schizophrenia, Paranoid type. Today patient is calm and cooperative during the assessment. He denies SI/HI's and AVH's. nausea. No vomiting Recommendation/Plan: Evaluate 1013 in 24 hours to determine proper dispo. Patient stated that he can follow-up with the [place] outpatient psy services. Document Coordinator involvement, patient may need placement. report N/V to nursing staff if worse
--- NOTE | 2016-10-01 15:23 | Progress Note ---
Subjective - Reason for Consult Consult date: 10/01/16 Reason for consult: follow up - Chief Complaint Chief complaint: "I feel better" Patient presented to the ED with suicidal ideation history of a long-standing mental illness such as depression or anxiety. He did not have a plan to harm himself . Today patient is calm and cooperative during the assessment. He stated that he does not have SI at this time, but instead would like another place to stay. He plans to follow up at the [facility]. He needs to bus tickets. He states that he has received those from administration in the past. He is focused on the placement issues. He reports mild depressive symptoms and they are long-standing, and he will address with the [facility]. He stated that he lost his ID. He plans not to return to his residence. No signs of psychosis present. No homicidal ideation. Last haldol injection was last week (09/21/2016). Mental Status Exam - Vital signs Last Vital Signs Temp 98.5 F 10/01/16 10:07 Pulse 60 10/01/16 10:07 Resp 17 10/01/16 10:07 BP 116/70 10/01/16 10:07 Pulse Ox 98 10/01/16 10:07 - Exam Narrative exam: ROS: (-) psychosis, denies severe depressive symptoms MSE: Appearance: calm, cooperative Behavior: regular eye contact Speech: regular rate and tone Mood: Less depressed Affect: congruent to mood Thought Process: Linear Thought Content: denies HI/SI and AVH Motor Activity: ambulatory Cognition: A/Ox 3 Insight: fair Judgment: fair Assessment and Plan Impression: Historical Dx: Schizophrenia, Paranoid type. Today patient is calm and cooperative during the assessment. He denies SI/HI and AVH. There are no acute safety concerns. He states he will seek help if his symptoms return. He has a history of doing so. Recommendation/Plan: Rescind 1013. Patient does not meet criteria. He is consistently denied suicidal ideation. He continues to have placement issues. He requests to see a social science instructor. Patient stated that he can follow-up with the [place] outpatient psy services as long as he has less tickets.
[2016-10-01 22:28] VITALS: BP 126/77
== END 2016-10-02 08:18 | disposition home or self-care (01) ==
LOC: ED 09:08 → EEVIPCON 09:08 → ED 10-02 08:18
DX: F20.9 Schizophrenia, unspecified (principal); I10 Essential (primary) hypertension; F17.210 Nicotine dependence, cigarettes, uncomplicated
CPT/HCPCS: 36415; 80048; 80307; 81001; 85025; 99285; G0480; 80320

== ENCOUNTER 2016-12-11 16:23 | Emergency (ER) | payer OTHER ==
--- NOTE | 2016-12-11 16:52 | Emergency Department Report ---
Chief Complaint: Headache Stated Complaint: HEADACHE - HPI History of Present Illness: 71-year-old male past medical history schizophrenia, atrial fibrillation not currently on anticoagulants presents with complaint of headache and shortness of breath at rest - ROS Review of Systems: History of atrial fibrillation not currently on anticoagulants - Exam Vital Signs: Vital Signs 12/11/16 16:30 Temperature 99.3 F Pulse Rate 123 H Respiratory 18 Rate Blood Pressure 149/98 O2 Sat by Pulse 94 Oximetry Physical Exam: Heart beat irregular on auscultation, patient awake alert and oriented 3 MSE screening note: Focused history and physical exam performed. Due to findings the following was ordered: Screening Assessment/Plan/Differential Dx: Possible Symptomatic A. fib not on anticoagulation, headache 1- This initial assessment/diagnostic orders/clinical plan/ treatment(s) is/are subject to change based on pt's health status, clinical progression and re- assessment by fellow clinical providers in the ED. Further treatment and workup at subsequent clinical provers discretion. Patient/guardians urged not to elope from ED as their condition may be serious if not clinically assessed and managed. 2-EKG, cardiac workup labs, chest x-ray, head CT 3-to be seen in the main ED 4-heart rate approximately 110s ED Disposition for MSE Condition: Stable
[2016-12-11 17:20] LABS: Basophils % (Auto) 0.6 % (0.0-1.8); Eosinophils % (Auto) 0.4 % (0.0-4.3); Hematocrit 46.1 % (35.5-45.6); Hemoglobin 14.6 gm/dl (11.8-15.2); Mean Corpuscular HGB Conc 32 % (32-34); Mean Corpuscular Hemoglobin 28 pg (28-32); Mean Corpuscular Volume 88 fl (84-94); Platelet Count 199 K/mm3 (140-440); Red Blood Count 5.26 M/mm3 (3.65-5.03); Red Cell Distribution Width 14.9 % (13.2-15.2); White Blood Count 8.7 K/mm3 (4.5-11.0)
[2016-12-11 17:21] LABS: Anion Gap 19 mmol/L; Blood Urea Nitrogen 23 mg/dL (9-20); Carbon Dioxide 21 mmol/L (22-30); Chloride 102.9 mmol/L (98-107); Glucose 91 mg/dL (75-100); Potassium 4.3 mmol/L (3.6-5.0); Sodium 139 mmol/L (137-145)
[2016-12-11 17:29] LABS: INR 1.08 (0.87-1.13)
[2016-12-11 17:30] LABS: Partial Thromboplastin Time 29.3 Sec. (24.2-36.6)
--- NOTE | 2016-12-11 17:43 | Cat Scan Report ---
FINAL REPORT EXAM: CT HEAD/BRAIN WO CON HISTORY: daugherty TECHNIQUE: Standard unenhanced CT of the head at 5.0 millimeter axial increments PRIORS: CT head 05/28/2016 FINDINGS: The ventricular system is normal in size and configuration. There is no evidence for parenchymal volume loss. There is no evidence for mass lesion, mass effect, midline shift, acute intracranial hemorrhage, or acute ischemia/ infarction. Visualized paranasal sinuses are clear. IMPRESSION: Negative CT of the head. No acute intracranial process noted. No change.
[2016-12-12] MEDS ORDERED: ATIVAN IM PRN (03:35)
[2016-12-12] MEDS ORDERED: ZOFRAN ODT PO PRN (03:36)
[2016-12-12] MEDS ORDERED: MOTRIN PO PRN (03:36)
--- NOTE | 2016-12-12 03:37 | Emergency Department Report ---
ED General Adult HPI - General Chief complaint: Headache Stated complaint: HEADACHE & PSYCH Time Seen by Provider: 12/12/16 03:28 Source: patient, EMS (ems notes not available at time of chart dictation), RN notes reviewed, old records reviewed Mode of arrival: Ambulatory Limitations: No Limitations - History of Present Illness Initial comments: This is a 71-year-old male, I have previously evaluated this patient. He presents to the ER with multiple complaints. His first complaint is headache. Headache is throbbing and global. Headache is not sudden or thunderclap in nature. It did not reach maximal intensity within an hour. It is not the worst headache of his life. There is no neck pain, neck stiffness, sore throat, recent chiropractic manipulation. No focal weakness/numbness. The patient also endorses that there is no temporal pain, no visual changes, no pain with chewing and/or swallowing food. Patient also complains of chest palpitations. I have evaluated the patient for similar complaints May of this year. No chest pain, no shortness of breath, no vomiting or diaphoresis, no recent trips or hospitalizations, no recent surgeries. The patient's final complaint is suicidality. He reports that he is having hallucinations, he does not have access to guns or firearms, he is not happy where he lives, and he states "I think I might kill myself." The patient further endorses no exacerbating or relieving factors to the multiple aforementioned symptoms. -: Gradual Location: head Severity scale (0 -10): 0 Consistency: intermittent Improves with: none Worsens with: none Associated Symptoms: headaches. denies: confusion, chest pain, cough, diaphoresis, loss of appetite, malaise, nausea/vomiting, shortness of breath, syncope, weakness - Related Data Allergies Allergy/AdvReac Type Severity Reaction Status Date / Time No Known Allergies Allergy Verified 05/25/14 04:07 ED Review of Systems ROS: Stated complaint: HEADACHE & PSYCH Other details as noted in HPI Constitutional: malaise. denies: fever Eyes: denies: vision change ENT: denies: epistaxis Respiratory: denies: cough Cardiovascular: palpitations. denies: chest pain Gastrointestinal: denies: vomiting Genitourinary: denies: dysuria Musculoskeletal: arthralgia, myalgia. denies: back pain Neurological: weakness Psychiatric: anxiety, auditory hallucinations, suicidal thoughts. denies: homicidal thoughts ED Past Medical Hx - Past Medical History Hx Hypertension: Yes Hx Renal Disease: Yes Hx Psychiatric Treatment: Yes (schizophrenia) Hx HIV: No Additional medical history: PNEUMONIA, kidney problems afib - Surgical History Additional Surgical History: hernia removal 2010, "surgery for colon cancer" - Social History Smoking Status: Current Every Day Smoker Substance Use Type: None ED Physical Exam - General Limitations: No Limitations General appearance: alert, in no apparent distress - Head Head exam: Present: atraumatic, normocephalic - Eye Eye exam: Present: normal appearance, PERRL, EOMI, other (visual acuity intact to finger counting, color perception, reading at a close distance). Absent: nystagmus - ENT ENT exam: Present: normal exam, normal orophraynx, mucous membranes moist, normal external ear exam - Neck Neck exam: Present: normal inspection, full ROM. Absent: tenderness, meningismus - Respiratory Respiratory exam: Present: normal lung sounds bilaterally. Absent: respiratory distress, wheezes, rales, rhonchi, stridor, chest wall tenderness, accessory muscle use, decreased breath sounds, prolonged expiratory - Cardiovascular Cardiovascular Exam: Present: regular rate, normal rhythm, normal heart sounds. Absent: bradycardia, tachycardia, irregular rhythm, systolic murmur, diastolic murmur, rubs, gallop - GI/Abdominal GI/Abdominal exam: Present: soft, normal bowel sounds. Absent: distended, tenderness, guarding, rebound, rigid, pulsatile mass - Rectal Rectal exam: Present: deferred - Extremities Exam Extremities exam: Present: normal inspection, full ROM, normal capillary refill. Absent: pedal edema, joint swelling, calf tenderness - Back Exam Back exam: Present: normal inspection, full ROM. Absent: tenderness, CVA tenderness (R), CVA tenderness (L), muscle spasm, paraspinal tenderness, vertebral tenderness - Neurological Exam Neurological exam: Present: alert, oriented X3, normal gait, other (Extraocular movements intact. Tongue midline. No facial droop. Facial sensation intact to light touch in the V1, V2, V3 distribution bilaterally. 5 and 5 strength in 4 extremities.. Sensation is intact to light touch in 4 extremities.). Absent : motor sensory deficit - Psychiatric Psychiatric exam: Present: anxious, suicidal ideation. Absent: homicidal ideation - Skin Skin exam: Present: warm, dry, intact, normal color. Absent: rash ED Course Vital Signs 12/11/16 12/12/16 12/12/16 16:30 01:21 02:50 Temperature 99.3 F 99.3 F Pulse Rate 123 H 68 Respiratory 18 18 Rate Blood Pressure 149/98 Blood Pressure 139/85 [Left] O2 Sat by Pulse 94 100 Oximetry ED Medical Decision Making - Lab Data Result diagrams: 12/11/16 16:44 12/11/16 16:44 Vital Signs 12/11/16 12/12/16 12/12/16 16:30 01:21 02:50 Temperature 99.3 F 99.3 F Pulse Rate 123 H 68 Respiratory 18 18 Rate Blood Pressure 149/98 Blood Pressure 139/85 [Left] O2 Sat by Pulse 94 100 Oximetry Lab Results 12/11/16 12/11/16 12/11/16 Range/Units 16:44 16:44 16:44 WBC 8.7 (4.5-11.0) K/mm3 RBC 5.26 H (3.65-5.03) M/mm3 Hgb 14.6 (11.8-15.2) gm/dl Hct 46.1 H (35.5-45.6) % MCV 88 (84-94) fl MCH 28 (28-32) pg MCHC 32 (32-34) % RDW 14.9 (13.2-15.2) % Plt Count 199 (140-440) K/mm3 Lymph % (Auto) 14.7 (13.4-35.0) % Crockett % (Auto) 7.0 (0.0-7.3) % Eos % (Auto) 0.4 (0.0-4.3) % Baso % (Auto) 0.6 (0.0-1.8) % Lymph # 1.3 (1.2-5.4) K/mm3 Crockett # 0.6 (0.0-0.8) K/mm3 Eos # 0.0 (0.0-0.4) K/mm3 Baso # 0.0 (0.0-0.1) K/mm3 Seg Neutrophils % 77.3 H (40.0-70.0) % Seg Neutrophils # 6.7 (1.8-7.7) K/mm3 PT 13.9 (12.2-14.9) Sec. INR 1.08 (0.87-1.13) APTT 29.3 (24.2-36.6) Sec. Sodium 139 (137-145) mmol/L Potassium 4.3 (3.6-5.0) mmol/L Chloride 102.9 (98-107) mmol/L Carbon Dioxide 21 L (22-30) mmol/L Anion Gap 19 mmol/L BUN 23 H (9-20) mg/dL Creatinine 1.0 (0.8-1.5) mg/dL Estimated GFR > 60 ml/min BUN/Creatinine Ratio 23.00 % Glucose 91 (75-100) mg/dL Calcium 9.0 (8.4-10.2) mg/dL Total Creatine Kinase (55-170) units/L Troponin T < 0.010 (0.00-0.029) ng/mL Salicylates (2.8-20.0) mg/dL Acetaminophen (10.0-30.0) ug/mL 12/11/16 12/12/16 12/12/16 Range/Units 23:40 02:34 03:52 WBC (4.5-11.0) K/mm3 RBC (3.65-5.03) M/mm3 Hgb (11.8-15.2) gm/dl Hct (35.5-45.6) % MCV (84-94) fl MCH (28-32) pg MCHC (32-34) % RDW (13.2-15.2) % Plt Count (140-440) K/mm3 Lymph % (Auto) (13.4-35.0) % Crockett % (Auto) (0.0-7.3) % Eos % (Auto) (0.0-4.3) % Baso % (Auto) (0.0-1.8) % Lymph # (1.2-5.4) K/mm3 Crockett # (0.0-0.8) K/mm3 Eos # (0.0-0.4) K/mm3 Baso # (0.0-0.1) K/mm3 Seg Neutrophils % (40.0-70.0) % Seg Neutrophils # (1.8-7.7) K/mm3 PT (12.2-14.9) Sec. INR (0.87-1.13) APTT (24.2-36.6) Sec. Sodium (137-145) mmol/L Potassium (3.6-5.0) mmol/L Chloride (98-107) mmol/L Carbon Dioxide (22-30) mmol/L Anion Gap mmol/L BUN (9-20) mg/dL Creatinine (0.8-1.5) mg/dL Estimated GFR ml/min BUN/Creatinine Ratio % Glucose (75-100) mg/dL Calcium (8.4-10.2) mg/dL Total Creatine Kinase 180 H (55-170) units/L Troponin T < 0.010 < 0.010 (0.00-0.029) ng/mL Salicylates (2.8-20.0) mg/dL Acetaminophen (10.0-30.0) ug/mL 12/12/16 12/12/16 Range/Units 03:52 03:52 WBC (4.5-11.0) K/mm3 RBC (3.65-5.03) M/mm3 Hgb (11.8-15.2) gm/dl Hct (35.5-45.6) % MCV (84-94) fl MCH (28-32) pg MCHC (32-34) % RDW (13.2-15.2) % Plt Count (140-440) K/mm3 Lymph % (Auto) (13.4-35.0) % Crockett % (Auto) (0.0-7.3) % Eos % (Auto) (0.0-4.3) % Baso % (Auto) (0.0-1.8) % Lymph # (1.2-5.4) K/mm3 Crockett # (0.0-0.8) K/mm3 Eos # (0.0-0.4) K/mm3 Baso # (0.0-0.1) K/mm3 Seg Neutrophils % (40.0-70.0) % Seg Neutrophils # (1.8-7.7) K/mm3 PT (12.2-14.9) Sec. INR (0.87-1.13) APTT (24.2-36.6) Sec. Sodium (137-145) mmol/L Potassium (3.6-5.0) mmol/L Chloride (98-107) mmol/L Carbon Dioxide (22-30) mmol/L Anion Gap mmol/L BUN (9-20) mg/dL Creatinine (0.8-1.5) mg/dL Estimated GFR ml/min BUN/Creatinine Ratio % Glucose (75-100) mg/dL Calcium (8.4-10.2) mg/dL Total Creatine Kinase (55-170) units/L Troponin T (0.00-0.029) ng/mL Salicylates < 0.3 L (2.8-20.0) mg/dL Acetaminophen < 15.0 (10.0-30.0) ug/mL - EKG Data -: EKG Interpreted by Me - EKG Data 12/12/16 04:39 Sinus tachycardia, 110 bpm, normal axis, QTC appropriate, not morphologically consistent with STEMI, appears unchanged when compared to prior EKG. - Radiology Data Radiology results: report reviewed, image reviewed interpreted by me: X-ray the chest is negative for acute disease. Noncontrast CT scan of the brain is negative for acute disease - Medical Decision Making Differential diagnosis: Migraine headache, tension headache, cluster headache, palpitations, suicidality, malingering, medical clearance for psychiatric placement Assessment and plan: 71-year-old male with multiple complaints, including suicidality. He is afebrile, with reassuring vital signs, clinically sober, walks with a steady gait, has a GCS of 15, with an NIH score of 0. Troponin sent prior to my evaluation, given the patient's current clinical history, I have a very low suspicion for acute coronary syndrome, I do not believe the patient requires admission for acs risk stratification. I find him to be low risk by GEORGE score, low risk by heart score, low risk by well's criteria. He is placed on a 1013, psychiatry has been counseled, he is currently awaiting psychiatric consultation. At this point in time, I do not appreciate any immediate medical consultation indication to psychiatric admission/evaluation/ consultation and placement. If not for the patient requiring 1013 for psychiatric consultation, I would have discharged him home to follow up. Critical care attestation.: If time is entered above; I have spent that time in minutes in the direct care of this critically ill patient, excluding procedure time. ED Disposition Clinical Impression: Heart palpitations, Schizophrenia, Cephalalgia, Medical clearance for psychiatric admission Disposition: DC/TX-65 PSY HOSP/PSY UNIT Is pt being admited?: No Does the pt Need Aspirin: No Condition: Stable Referrals: PRIMARY CARE, [Primary Care Provider] - 3-5 Days
[2016-12-12 05:12] LABS: Urine Drugs of Abuse Note Disclamer
[2016-12-12 05:33] LABS: Bilirubin,Urine NEG (Negative); Blood,Urine NEG (Negative); Ketones,Urine TR mg/dL (Negative); Leukocyte Esterase,Urine NEG (Negative); Mucus,Urine FEW /HPF; Nitrite,Urine NEG (Negative); Protein,Urine <15 mg/dL mg/dL (Negative); Urobilinogen,Urine < 2.0 mg/dL (<2.0)
--- NOTE | 2016-12-12 07:45 | XRay Report ---
ROUTINE CHEST, TWO VIEWS: HISTORY: Shortness of breath. The trachea, heart, mediastinal contour, lung wu and bony thorax are unremarkable. IMPRESSION: Unremarkable chest x-ray. No change since 06/10/16.
[2016-12-14 15:28] VITALS: BP 104/68
== END 2016-12-14 16:30 ==
LOC: EEVIPCON 16:23 → ED 16:23
DX: F20.9 Schizophrenia, unspecified (principal); R51 Headache; R00.2 Palpitations; F17.200 Nicotine dependence, unspecified, uncomplicated; I12.9 Hypertensive chronic kidney disease with stage 1 through stage 4 chronic kidney disease, or unspecified chronic kidney disease; N18.9 Chronic kidney disease, unspecified; Z79.899 Other long term (current) drug therapy
CPT/HCPCS: 36415; 70450; 71020; 80048; 80307; 81001; 82550; 84484; 85025; 85610; 85730; 93005; 93010; 99285; G0480; 80320

== ENCOUNTER 2016-12-28 22:23 | Emergency (ER) | payer SELFPAY ==
[2016-12-28 23:02] LABS: Basophils % (Auto) 0.6 % (0.0-1.8); Eosinophils % (Auto) 1.2 % (0.0-4.3); Hematocrit 41.5 % (35.5-45.6); Hemoglobin 13.8 gm/dl (11.8-15.2); Mean Corpuscular HGB Conc 33 % (32-34); Mean Corpuscular Hemoglobin 28 pg (28-32); Mean Corpuscular Volume 85 fl (84-94); Platelet Count 150 K/mm3 (140-440); Red Blood Count 4.91 M/mm3 (3.65-5.03); Red Cell Distribution Width 14.2 % (13.2-15.2); White Blood Count 7.7 K/mm3 (4.5-11.0)
[2016-12-28 23:24] LABS: Anion Gap 18 mmol/L; BUN/Creatinine Ratio 18; Blood Urea Nitrogen 14 mg/dL (9-20); Calcium 8.7 mg/dL (8.4-10.2); Carbon Dioxide 24 mmol/L (22-30); Chloride 102.2 mmol/L (98-107); Glucose 89 mg/dL (75-100); Potassium 3.8 mmol/L (3.6-5.0); Sodium 140 mmol/L (137-145)
[2016-12-28 23:37] LABS: Urine Drugs of Abuse Note Disclamer
[2016-12-28 23:53] LABS: Bilirubin,Urine NEG (Negative); Blood,Urine NEG (Negative); Ketones,Urine NEG (Negative); Leukocyte Esterase,Urine NEG (Negative); Mucus,Urine 3+ /HPF; Nitrite,Urine NEG (Negative); Protein,Urine <15 mg/dL mg/dL (Negative); RBC,Urine < 1.0 /HPF (0.0-6.0); Urobilinogen,Urine < 2.0 mg/dL (<2.0)
[2016-12-29 06:07] VITALS: BP 126/53
== END 2016-12-29 04:45 | disposition left against medical advice (07) ==
LOC: ED 22:23
DX: R07.9 Chest pain, unspecified (principal); Z53.21 Procedure and treatment not carried out due to patient leaving prior to being seen by health care provider
CPT/HCPCS: 36415; 80048; 80307; 81001; 84484; 85025; 93005; 93010; G0480; 80320

== ENCOUNTER 2016-12-29 09:16 | Emergency (ER) | payer SELFPAY ==
[2016-12-29] MEDS ORDERED: ASPIRIN PO ONE (09:43)
[2016-12-29 10:52] LABS: Eosinophils % (Auto) 1.3 % (0.0-4.3); Hematocrit 39.7 % (35.5-45.6); Hemoglobin 13.1 gm/dl (11.8-15.2); Mean Corpuscular HGB Conc 33 % (32-34); Mean Corpuscular Hemoglobin 28 pg (28-32); Mean Corpuscular Volume 86 fl (84-94); Platelet Count 150 K/mm3 (140-440); Red Cell Distribution Width 14.3 % (13.2-15.2); White Blood Count 4.8 K/mm3 (4.5-11.0)
[2016-12-29 11:04] LABS: Anion Gap 20 mmol/L; BUN/Creatinine Ratio 15; Blood Urea Nitrogen 12 mg/dL (9-20); Calcium 8.7 mg/dL (8.4-10.2); Carbon Dioxide 25 mmol/L (22-30); Chloride 99.4 mmol/L (98-107); Glucose 97 mg/dL (75-100); Potassium 3.6 mmol/L (3.6-5.0); Sodium 141 mmol/L (137-145)
--- NOTE | 2016-12-30 02:51 | Emergency Department Report ---
ED General Adult HPI - General Chief complaint: Chest Pain Stated complaint: CHEST PAIN Time Seen by Provider: 12/30/16 02:49 Source: patient Mode of arrival: Ambulatory Limitations: No Limitations - History of Present Illness Initial comments: Patient is a 71-year-old male past medical history of schizophrenia and PTSD who presents with feeling weak. Patient states that he's had chest pain yesterday but currently denies having any active chest pain now patient denies having any suicidal or homicidal ideation. Patient was previously seen in the ER a couple days ago for similar chest pain. Patient denies having any nausea or vomiting or having any shortness of breath. Patient is alert and oriented and can maintain a conversation. He states that he has some slight shortness of breath however he's never been diagnosed cardiac event. He had the chest pain it was a 3 out of 10 and was achy low. In the middle of his chest didn't radiate anywhere was a boring type of pain. Severity scale (0 -10): 0 - Related Data Allergies Allergy/AdvReac Type Severity Reaction Status Date / Time No Known Allergies Allergy Verified 05/25/14 04:07 ED Review of Systems ROS: Stated complaint: CHEST PAIN Other details as noted in HPI Constitutional: denies: chills, fever Eyes: denies: eye pain, eye discharge, vision change ENT: denies: ear pain, throat pain Respiratory: denies: cough, shortness of breath, wheezing Cardiovascular: chest pain. denies: palpitations Endocrine: no symptoms reported Gastrointestinal: denies: abdominal pain, nausea, diarrhea Genitourinary: denies: urgency, dysuria Musculoskeletal: denies: back pain, joint swelling, arthralgia Skin: denies: rash, lesions Neurological: denies: headache, weakness, paresthesias Psychiatric: denies: anxiety, depression Hematological/Lymphatic: denies: easy bleeding, easy bruising ED Past Medical Hx - Past Medical History Hx Hypertension: Yes Hx Renal Disease: Yes Hx Psychiatric Treatment: Yes (schizophrenia) Hx HIV: No Additional medical history: PNEUMONIA, kidney problems afib - Surgical History Additional Surgical History: hernia removal 2010, "surgery for colon cancer" - Social History Smoking Status: Current Every Day Smoker Substance Use Type: None ED Physical Exam - General Limitations: No Limitations General appearance: alert, in no apparent distress - Head Head exam: Present: atraumatic, normocephalic - Eye Eye exam: Present: normal appearance - ENT ENT exam: Present: mucous membranes moist - Neck Neck exam: Present: normal inspection - Respiratory Respiratory exam: Present: normal lung sounds bilaterally. Absent: respiratory distress - Cardiovascular Cardiovascular Exam: Present: regular rate, normal rhythm. Absent: systolic murmur, diastolic murmur, rubs, gallop - GI/Abdominal GI/Abdominal exam: Present: soft, normal bowel sounds - Rectal Rectal exam: Present: deferred - Extremities Exam Extremities exam: Present: normal inspection - Back Exam Back exam: Present: normal inspection - Neurological Exam Neurological exam: Present: alert, oriented X3 - Psychiatric Psychiatric exam: Present: normal affect, normal mood - Skin Skin exam: Present: warm, dry, intact, normal color. Absent: rash ED Course Vital Signs 12/29/16 12/29/16 12/30/16 09:40 20:10 04:15 Temperature 98.8 F 98.3 F 97.9 F Pulse Rate 103 H 66 56 L Respiratory 18 18 16 Rate Blood Pressure 105/66 139/89 Blood Pressure 107/71 [Right] O2 Sat by Pulse 91 99 98 Oximetry ED Medical Decision Making - Lab Data Result diagrams: 12/29/16 10:10 12/29/16 10:10 Lab Results 12/29/16 12/29/16 12/29/16 Range/Units 10:10 10:10 12:36 WBC 4.8 (4.5-11.0) K/mm3 RBC 4.60 (3.65-5.03) M/mm3 Hgb 13.1 (11.8-15.2) gm/dl Hct 39.7 (35.5-45.6) % MCV 86 (84-94) fl MCH 28 (28-32) pg MCHC 33 (32-34) % RDW 14.3 (13.2-15.2) % Plt Count 150 (140-440) K/mm3 Lymph % (Auto) 17.7 (13.4-35.0) % M[place]racken % (Auto) 10.1 H (0.0-7.3) % Eos % (Auto) 1.3 (0.0-4.3) % Baso % (Auto) 1.0 (0.0-1.8) % Lymph # 0.8 L (1.2-5.4) K/mm3 M[place]racken # 0.5 (0.0-0.8) K/mm3 Eos # 0.1 (0.0-0.4) K/mm3 Baso # 0.0 (0.0-0.1) K/mm3 Seg Neutrophils % 69.9 (40.0-70.0) % Seg Neutrophils # 3.3 (1.8-7.7) K/mm3 Sodium 141 (137-145) mmol/L Potassium 3.6 (3.6-5.0) mmol/L Chloride 99.4 (98-107) mmol/L Carbon Dioxide 25 (22-30) mmol/L Anion Gap 20 mmol/L BUN 12 (9-20) mg/dL Creatinine 0.8 (0.8-1.5) mg/dL Estimated GFR > 60 ml/min BUN/Creatinine Ratio 15 % Glucose 97 (75-100) mg/dL Calcium 8.7 (8.4-10.2) mg/dL Troponin T < 0.010 < 0.010 (0.00-0.029) ng/mL 12/29/16 Range/Units 16:11 WBC (4.5-11.0) K/mm3 RBC (3.65-5.03) M/mm3 Hgb (11.8-15.2) gm/dl Hct (35.5-45.6) % MCV (84-94) fl MCH (28-32) pg MCHC (32-34) % RDW (13.2-15.2) % Plt Count (140-440) K/mm3 Lymph % (Auto) (13.4-35.0) % [place]rack[place] % (Auto) (0.0-7.3) % Eos % (Auto) (0.0-4.3) % Baso % (Auto) (0.0-1.8) % Lymph # (1.2-5.4) K/mm3 M[place]racken # (0.0-0.8) K/mm3 Eos # (0.0-0.4) K/mm3 Baso # (0.0-0.1) K/mm3 Seg Neutrophils % (40.0-70.0) % Seg Neutrophils # (1.8-7.7) K/mm3 Sodium (137-145) mmol/L Potassium (3.6-5.0) mmol/L Chloride (98-107) mmol/L Carbon Dioxide (22-30) mmol/L Anion Gap mmol/L BUN (9-20) mg/dL Creatinine (0.8-1.5) mg/dL Estimated GFR ml/min BUN/Creatinine Ratio % Glucose (75-100) mg/dL Calcium (8.4-10.2) mg/dL Troponin T < 0.010 (0.00-0.029) ng/mL - EKG Data -: EKG Interpreted by Me - EKG Data 12/30/16 05:41 EKG shows normal sinus rhythm no T-wave inversion no ST segment elevation - Radiology Data Radiology results: image reviewed Chest x-ray: Shows no acute cardiopulmonary disease - Medical Decision Making Chief medical diagnosis: GERD Differential medical diagnosis: Arrhythmia, non-STEMI CBC, CMP, troponin, chest x-ray, EKG Patient is at low risk for ACS event he's had 3 negative troponins here in the emergency department. Patient is not having chest pain and has not had chest pain for the last 12 hours. Patient comes in with similar complaints to the ER and on further prodding he states he just wanted a place to stay. Patient has no nausea no vomiting. Gave patient return precautions to come back to the ER if he has worsening chest pain. His risk on the Heart score is a 3 and he can be discharged. Critical care attestation.: If time is entered above; I have spent that time in minutes in the direct care of this critically ill patient, excluding procedure time. ED Disposition Clinical Impression: Chest pain Qualifiers: Chest pain type: unspecified Qualified Code(s): R07.9 - Chest pain, unspecified Disposition: DC-01 TO HOME OR SELFCARE Is pt being admited?: No Does the pt Need Aspirin: No Condition: Stable Instructions: Chest Pain (ED) Referrals: PRIMARY CARE,MD [Primary Care Provider] - 3-5 Days
[2016-12-30 06:01] VITALS: BP 102/69
--- NOTE | 2016-12-30 09:37 | XRay Report ---
CHEST TWO VIEWS: 12/29/16 09:16:00 CLINICAL: Chest pain and shortness of breath. COMPARISON: 12/11/16 FINDINGS: Normal heart and pulmonary vasculature. The lungs are normally expanded and clear.Degenerative changes in the spine. IMPRESSION: No acute cardiopulmonary process.
== END 2016-12-30 06:06 | disposition home or self-care (01) ==
LOC: ED 09:16
DX: R07.9 Chest pain, unspecified (principal); I10 Essential (primary) hypertension; F20.9 Schizophrenia, unspecified; F17.200 Nicotine dependence, unspecified, uncomplicated
CPT/HCPCS: 36415; 71020; 80048; 84484; 85025; 93005; 93010

== ENCOUNTER 2017-02-18 20:03 | Emergency (ER) | payer OTHER ==
[2017-02-18 20:54] LABS: Basophils % (Auto) 1.1 % (0.0-1.8); Eosinophils % (Auto) 0.7 % (0.0-4.3); Hematocrit 44.5 % (35.5-45.6); Mean Corpuscular HGB Conc 31 % (32-34); Mean Corpuscular Hemoglobin 27 pg (28-32); Mean Corpuscular Volume 86 fl (84-94); Red Blood Count 5.17 M/mm3 (3.65-5.03); Red Cell Distribution Width 15.4 % (13.2-15.2); White Blood Count 11.3 K/mm3 (4.5-11.0)
[2017-02-18 21:05] LABS: Anion Gap 20 mmol/L; BUN/Creatinine Ratio 14; Blood Urea Nitrogen 13 mg/dL (9-20); Calcium 8.9 mg/dL (8.4-10.2); Carbon Dioxide 25 mmol/L (22-30); Chloride 97.1 mmol/L (98-107); Glucose 63 mg/dL (75-100); Potassium 3.6 mmol/L (3.6-5.0); Sodium 138 mmol/L (137-145)
[2017-02-18 21:09] LABS: Platelet Count 187 K/mm3 (140-440)
[2017-02-18 21:11] LABS: Urine Drugs of Abuse Note Disclamer
[2017-02-18 21:27] LABS: Bilirubin,Urine NEG (Negative); Blood,Urine SM (Negative); Ketones,Urine NEG (Negative); Leukocyte Esterase,Urine NEG (Negative); Mucus,Urine FEW /HPF; Nitrite,Urine NEG (Negative); Protein,Urine <15 mg/dL mg/dL (Negative); Urobilinogen,Urine < 2.0 mg/dL (<2.0)
--- NOTE | 2017-02-19 03:27 | Emergency Department Report ---
ED Headache HPI - General Chief Complaint: Headache Stated Complaint: HEADACHE Time Seen by Provider: 02/19/17 03:14 Source: patient - History of Present Illness Initial Comments: Patient is 72 years old male history of paranoid schizophrenia, presented today with a chief complaint of headache. Patient stated that he was diagnosed as a TIA at [facility] 2 weeks ago. He stated that he feel like his symptoms is coming back again. Patient stated that he thing that he has bleeding in his brain. He denied any weakness numbness or tingling sensation. No bowel or bladder incontinence. Patient denies suicidal or homicidal ideation. He also denied visual or auditory. Timing/Duration: 24 hours Head Injury Location: global Recent Head Trauma: no recent headache/trauma, frequent headaches Associated Symptoms: denies: denies symptoms, confusion, fatigue, facial pain, fever/chills, flushing, loss of consciousness, nausea/vomiting, nasal congestion , nasal drainage, numbness in legs/feet, rash, seizures, sinus infection, stiff neck, vision changes, weakness, other Allergies/Adverse Reactions: Allergies No Known Allergies Allergy (Verified 05/25/14 04:07) Home Medications: Ambulatory Orders Benztropine [Cogentin] 0.5 mg PO HS #30 tablet 01/25/17 OLANzapine [ZyPREXA] 5 mg PO HS #30 tablet 01/25/17 ED Review of Systems ROS: Stated complaint: HEADACHE Other details as noted in HPI Comment: All other systems reviewed and negative Constitutional: denies: chills, fever Respiratory: denies: cough, orthopnea, shortness of breath, SOB with exertion, SOB at rest Cardiovascular: denies: chest pain, palpitations, dyspnea on exertion, edema, syncope, paroxysmal nocturnal dyspnea Gastrointestinal: denies: abdominal pain, nausea, vomiting, diarrhea, constipation, hematemesis Genitourinary: denies: urgency, dysuria, frequency, hematuria Skin: denies: rash, lesions, change in color, change in hair/nails Neurological: headache. denies: weakness, numbness, paresthesias, confusion, abnormal gait, vertigo ED Past Medical Hx - Past Medical History Hx Hypertension: Yes Hx Renal Disease: Yes Hx Psychiatric Treatment: Yes (schizophrenia) Hx HIV: No Additional medical history: PNEUMONIA, kidney problems afib - Surgical History Additional Surgical History: hernia removal 2010, "surgery for colon cancer" - Social History Smoking Status: Current Every Day Smoker Substance Use Type: None - Medications Home Medications: Home Medications Medication Instructions Recorded Confirmed Last Taken Type Benztropine [Cogentin] 0.5 mg PO HS #30 tablet 01/25/17 Unknown Rx OLANzapine [ZyPREXA] 5 mg PO HS #30 tablet 01/25/17 Unknown Rx ED Physical Exam - General Limitations: No Limitations General appearance: alert, in no apparent distress - Head Head exam: Present: atraumatic, normocephalic, normal inspection - Eye Eye exam: Present: normal appearance, PERRL Pupils: Present: normal accommodation - ENT ENT exam: Present: normal exam, normal orophraynx, mucous membranes moist - Neck Neck exam: Present: normal inspection, full ROM. Absent: tenderness, meningismus, lymphadenopathy - Respiratory Respiratory exam: Present: normal lung sounds bilaterally. Absent: respiratory distress, wheezes, rales, rhonchi, stridor, chest wall tenderness, accessory muscle use, decreased breath sounds, prolonged expiratory - Cardiovascular Cardiovascular Exam: Present: regular rate, normal rhythm, normal heart sounds - GI/Abdominal GI/Abdominal exam: Present: soft, normal bowel sounds. Absent: distended, tenderness, guarding, rebound, rigid, organomegaly, mass, bruit, pulsatile mass , hernia - Extremities Exam Extremities exam: Present: normal inspection, full ROM, normal capillary refill - Back Exam Back exam: Present: normal inspection. Absent: tenderness, CVA tenderness (R), CVA tenderness (L), muscle spasm, paraspinal tenderness, vertebral tenderness - Neurological Exam Neurological exam: Present: alert, oriented X3, CN II-XII intact, normal gait, reflexes normal. Absent: abnormal gait, motor sensory deficit - Psychiatric Psychiatric exam: Present: normal affect. Absent: depressed, agitated, anxious , flat affect, manic, homicidal ideation, suicidal ideation - Skin Skin exam: Present: warm, intact, normal color ED Course Vital Signs 02/18/17 02/19/17 02/19/17 20:31 02:24 02:28 Temperature 97.8 F 98.9 F Pulse Rate 126 H 86 Respiratory 20 20 Rate Blood Pressure 141/96 112/80 Blood Pressure [Left] O2 Sat by Pulse 96 95 Oximetry 02/19/17 02/19/17 02/19/17 02:31 02:45 03:00 Temperature Pulse Rate 91 H 91 H 82 Respiratory 21 13 13 Rate Blood Pressure 112/80 112/80 109/66 Blood Pressure [Left] O2 Sat by Pulse 93 94 94 Oximetry 02/19/17 02/19/17 03:15 04:35 Temperature 98.8 F Pulse Rate 89 99 H Respiratory 19 20 Rate Blood Pressure 109/66 Blood Pressure 119/73 [Left] O2 Sat by Pulse 93 98 Oximetry - Reevaluation(s) Reevaluation #1: 02/19/17 05:01 Patient is alert and oriented 3, no suicidal or homicidal ideation, no auditory hallucination. Patient to be discharged home. I think this is part of his paranoid schizophrenia. ED Medical Decision Making - Lab Data Result diagrams: 02/18/17 20:36 02/18/17 20:36 - EKG Data -: EKG Interpreted by Me EKG shows normal: sinus rhythm - EKG Data Interpretation: no acute changes - Radiology Data Radiology results: report reviewed CT brain showed no acute finding Critical care attestation.: If time is entered above; I have spent that time in minutes in the direct care of this critically ill patient, excluding procedure time. ED Disposition Clinical Impression: Headache, Paranoid schizophrenia Disposition: DC-01 TO HOME OR SELFCARE Is pt being admited?: No Condition: Stable Instructions: Schizophrenia (ED) Referrals: PRIMARY CARE [Primary Care Provider] - 3-5 Days
--- NOTE | 2017-02-19 03:49 | Cat Scan Report ---
FINAL REPORT EXAM: CT HEAD/BRAIN WO CON HISTORY: headache COMPARISON: November 2016 CT of the head. TECHNIQUE: Axial images obtained skull base through vertex. FINDINGS: No acute intracranial hemorrhage, midline shift or pathologic extra axial fluid collection. Ventricles and cisterns are normal in size and configuration for the patient's age. Bear-white differentiation preserved. Calvarium grossly intact. Orbits are grossly unremarkable. Visualized para-nasal sinuses and mastoid air cells are clear. IMPRESSION: No grossly acute intracranial abnormality.
[2017-02-19 04:37] VITALS: BP 119/73
== END 2017-02-19 05:49 | disposition home or self-care (01) ==
LOC: ED 20:03
DX: F20.0 Paranoid schizophrenia (principal); R51 Headache; I10 Essential (primary) hypertension; F17.200 Nicotine dependence, unspecified, uncomplicated
CPT/HCPCS: 36415; 70450; 80048; 80307; 81001; 84484; 85025; 99284; G0480; 80320

== ENCOUNTER 2017-02-21 19:47 | Emergency (ER) | payer OTHER ==
[2017-02-21 21:23] LABS: Basophils % (Auto) 0.7 % (0.0-1.8); Eosinophils % (Auto) 1.1 % (0.0-4.3); Hematocrit 42.4 % (35.5-45.6); Hemoglobin 13.5 gm/dl (11.8-15.2); Mean Corpuscular HGB Conc 32 % (32-34); Mean Corpuscular Hemoglobin 27 pg (28-32); Mean Corpuscular Volume 86 fl (84-94); Platelet Count 180 K/mm3 (140-440); Red Blood Count 4.95 M/mm3 (3.65-5.03); Red Cell Distribution Width 15.3 % (13.2-15.2); White Blood Count 11.1 K/mm3 (4.5-11.0)
[2017-02-21 21:43] LABS: Anion Gap 18 mmol/L; BUN/Creatinine Ratio 20; Blood Urea Nitrogen 18 mg/dL (9-20); Calcium 8.7 mg/dL (8.4-10.2); Carbon Dioxide 27 mmol/L (22-30); Chloride 98.2 mmol/L (98-107); Glucose 85 mg/dL (75-100); Potassium 4.6 mmol/L (3.6-5.0); Sodium 139 mmol/L (137-145)
--- NOTE | 2017-02-22 01:49 | Emergency Department Report ---
ED Psych HPI - General Chief Complaint: Psych Stated Complaint: MH Time Seen by Provider: 02/22/17 01:45 Source: patient Mode of arrival: Ambulatory Limitations: No Limitations - History of Present Illness Initial Comments: Patient is a 72-year-old male that presents to the emergency room with suicidal ideations and a plan to cut his wrist. Patient states depressed. Patient denies homicidal ideations. MD Complaint: suicidal ideation, feels depressed -: Sudden Associated Psychiatric Symptoms: depression, suicidal ideation History of same: Yes Quality: constant Improves With: therapy Worsens With: none Context: not taking psychiatric, significant life stressor Associated Symptoms: denies other symptoms Treatments Prior to Arrival: placed on mental he If Self Harm: admits thoughts of, has plan - Related Data Previous Rx's Medication Instructions Recorded Last Taken Type Benztropine [Cogentin] 0.5 mg PO HS #30 tablet 01/25/17 Unknown Rx OLANzapine [ZyPREXA] 5 mg PO HS #30 tablet 01/25/17 Unknown Rx Allergies Allergy/AdvReac Type Severity Reaction Status Date / Time No Known Allergies Allergy Verified 02/21/17 20:54 ED Review of Systems ROS: Stated complaint: MH Other details as noted in HPI Comment: All other systems reviewed and negative Psychiatric: as per HPI, depression, suicidal thoughts ED Past Medical Hx - Past Medical History Hx Hypertension: Yes Hx Renal Disease: Yes Hx Psychiatric Treatment: Yes (schizophrenia) Hx HIV: No Additional medical history: PNEUMONIA, kidney problems afib - Surgical History Additional Surgical History: hernia removal 2010, "surgery for colon cancer" - Family History Family history: hypertension - Social History Smoking Status: Current Every Day Smoker Substance Use Type: None - Medications Home Medications: Home Medications Medication Instructions Recorded Confirmed Last Taken Type Benztropine [Cogentin] 0.5 mg PO HS #30 tablet 01/25/17 Unknown Rx OLANzapine [ZyPREXA] 5 mg PO HS #30 tablet 01/25/17 Unknown Rx ED Physical Exam - General Limitations: No Limitations General appearance: alert, in no apparent distress - Head Head exam: Present: atraumatic, normocephalic - Eye Eye exam: Present: normal appearance - ENT ENT exam: Present: mucous membranes moist - Neck Neck exam: Present: normal inspection - Respiratory Respiratory exam: Present: normal lung sounds bilaterally. Absent: respiratory distress - Cardiovascular Cardiovascular Exam: Present: regular rate, normal rhythm. Absent: systolic murmur, diastolic murmur, rubs, gallop - GI/Abdominal GI/Abdominal exam: Present: soft, normal bowel sounds - Rectal Rectal exam: Present: deferred - Extremities Exam Extremities exam: Present: normal inspection - Back Exam Back exam: Present: normal inspection - Neurological Exam Neurological exam: Present: alert, oriented X3 - Psychiatric Psychiatric exam: Present: normal affect, normal mood - Skin Skin exam: Present: warm, dry, intact, normal color. Absent: rash ED Course Vital Signs 02/21/17 20:54 Temperature 98.4 F Pulse Rate 94 H Respiratory 18 Rate Blood Pressure 122/74 O2 Sat by Pulse 96 Oximetry ED Medical Decision Making - Lab Data Result diagrams: 02/21/17 21:12 02/21/17 21:16 - Medical Decision Making Patient medically cleared and awaiting transfer to psychiatric facility. 1013 signed. - Differential Diagnosis si. depression. stress Critical care attestation.: If time is entered above; I have spent that time in minutes in the direct care of this critically ill patient, excluding procedure time. ED Disposition Clinical Impression: Suicidal ideation, Depression Disposition: DC/TX-65 PSY HOSP/PSY UNIT Is pt being admited?: No Does the pt Need Aspirin: No Condition: Stable Time of Disposition: 05:52
[2017-02-22 02:53] LABS: Urine Drugs of Abuse Note Disclamer
[2017-02-22 03:16] LABS: Bilirubin,Urine NEG (Negative); Blood,Urine NEG (Negative); Ketones,Urine TR mg/dL (Negative); Leukocyte Esterase,Urine NEG (Negative); Mucus,Urine FEW /HPF; Nitrite,Urine NEG (Negative); Protein,Urine <15 mg/dL mg/dL (Negative); Urobilinogen,Urine < 2.0 mg/dL (<2.0); WBC,Urine < 1.0 /HPF (0.0-6.0)
--- NOTE | 2017-02-22 15:21 | Consultation ---
History of Present Illness - Reason for Consult Consult date: 02/22/17 Reason for consult: Mental Health Evaluation Requesting physician: TEDDY BUTLER III - Chief Complaint Chief complaint: "I am homeless and the voices are bad" - History of Present Psychiatric Illness Patient is a 72-year-old male that presents to the emergency room with suicidal ideations and a plan to cut his wrist. This patient is known to me. Today patient is calm and cooperative during the assessment. He stated that the voices are "bad" and causing him to be suicidal. He stated that voices are telling him to cut his wrist so he can . He stated that he is homeless because he does not like his current residence. He stated that the staff at his shelter are "bad people." He stated that the voices has increased over the past several days. He stated that [facility], last administration 2 weeks ago. He denies HI's and VH's. He denies sleep disturbance and a poor appetite. He denies recreational drug use and alcohol consumptions (etoh). Medications and Allergies Allergies Allergy/AdvReac Type Severity Reaction Status Date / Time No Known Allergies Allergy Verified 02/21/17 20:54 Home Medications Medication Instructions Recorded Confirmed Last Taken Type Benztropine [Cogentin] 0.5 mg PO HS #30 tablet 01/25/17 02/22/17 Unknown Rx OLANzapine [ZyPREXA] 5 mg PO HS #30 tablet 01/25/17 02/22/17 Unknown Rx Past psychiatric history - Past Medical History Past Medical History: hypertension, other (Renal Disease) Past Surgical History: Other - past Psychiatric treatment and history Psych: Schizophrenia psychiatric treatment history: Multiple inpatient psy services. Denies a fam psy hx. - Social History Social history: other (Homeless) Mental Status Exam - Vital signs Last Vital Signs Temp 98.5 F 02/22/17 10:35 Pulse 83 02/22/17 10:35 Resp 16 02/22/17 10:35 BP 96/61 02/22/17 10:35 Pulse Ox 96 02/22/17 10:35 - Exam Narrative exam: MSE: Appearance: calm, cooperative Behavior: regular eye contact Speech: regular rate and tone Mood: "okay" Affect: congruent to mood Thought Process: circumstantial Thought Content: denies HI's and VH's, active AH's Motor Activity: sitting up in bed Cognition: A/Ox3 Insight: variable Judgment: variable Results Result Diagrams: 02/21/17 21:12 02/21/17 21:16 Abnormal lab results 02/21/17 Range/Units 21:12 WBC 11.1 H (4.5-11.0) K/mm3 MCH 27 L (28-32) pg RDW 15.3 H (13.2-15.2) % [place] % (Auto) 7.9 H (0.0-7.3) % [place] # 0.9 H (0.0-0.8) K/mm3 Seg Neutrophils % 74.5 H (40.0-70.0) % Seg Neutrophils # 8.3 H (1.8-7.7) K/mm3 All other labs normal. Assessment and Plan Assessment and plan: Impression: Schizophrenia. Today patient is calm and cooperative during the assessment. Patient experiencing AH's. DDx: R/O Bipolar DO, R/O Schizoaffective DO Recommendation/Plan: Continue 1013 with placement to inpatient psy services. Start Zyprexa 5 mg PO HS for psychosis and Cogentin 0.5 mg PO HS for EPS prevention. Discussed possible metabolic side effects of Zyprexa with patient. student financial services counselor involvement, patient may need placement.
[2017-02-22] MEDS ORDERED: COGENTIN PO SCH (22:00)
--- NOTE | 2017-02-23 14:12 | Progress Note ---
Subjective - Reason for Consult Consult date: 02/23/17 Reason for consult: Psychiatry Follow-up - Chief Complaint Chief complaint: "Good morning" Patient is a 72-year-old male that presents to the emergency room with suicidal ideations and a plan to cut his wrist. This patient is known to me. Today patient is calm and cooperative during the assessment. He cannot confirm or deny that the voices has ceased. He stated that he is still suicidal without a plan. He denies sleep disturbance and a poor appetite. He denies HI's and VH's. He denies any side effects of his medications. Mental Status Exam - Vital signs Last Vital Signs Temp 98.7 F 02/23/17 09:30 Pulse 76 02/23/17 09:30 Resp 18 02/23/17 09:30 BP 104/65 02/23/17 09:30 Pulse Ox 98 02/23/17 09:30 - Exam Narrative exam: MSE: Appearance: calm, cooperative Behavior: regular eye contact Speech: regular rate and tone Mood: "okay" Affect: congruent to mood Thought Process: circumstantial Thought Content: denies HI's and VH's, intermittent AH's Motor Activity: sitting up in bed Cognition: A/Ox3 Insight: variable Judgment: variable Assessment and Plan Impression: Schizophrenia. Today patient is calm and cooperative during the assessment. Patient experiencing intermittent AH's. DDx: R/O Bipolar DO, R/O Schizoaffective DO Recommendation/Plan: Continue 1013 with placement to inpatient psy services. Continue Zyprexa 5 mg PO HS for psychosis and Cogentin 0.5 mg PO HS for EPS prevention. Discussed possible metabolic side effects of Zyprexa with patient. child protective services specialist involvement, patient may need placement.
[2017-02-23 17:13] VITALS: BP 119/78
== END 2017-02-23 17:14 ==
LOC: ED 19:47
DX: F32.9 Major depressive disorder, single episode, unspecified (principal); R45.851 Suicidal ideations; I10 Essential (primary) hypertension; F20.9 Schizophrenia, unspecified; F17.200 Nicotine dependence, unspecified, uncomplicated
CPT/HCPCS: 36415; 80048; 80307; 81001; 85025; 99285; G0480; 80320

== ENCOUNTER 2021-01-21 22:34 | Emergency (ER) | payer MEDICARE ==
--- NOTE | 2021-01-21 23:30 | Emergency Department Report ---
ED General Adult HPI - General Stated complaint: CHEST PAIN Time Seen by Provider: 01/21/21 22:39 - History of Present Illness Initial comments: Patient presents by ambulance secondary to palpitations. Patient states that he has had a long history of palpitations. His heart rate sometimes goes up and sometimes slows down. Recently, it has been speeding up. He noticed that it is bit up tonight. Etiology for this is not known. He has no fevers or chills per there is no cough congestion per there is no history of trauma. He has not been drinking any more caffeine than usual. Because of the fast heart rate, he decided to come here. Patient states that he is not really having any chest pain. He denies any chest discomfort. Patient states he is not having any pleuritic pain. He just feels as though his heart is beating fast and "pounding ." He reiterates that there is no pain associated with this. - Related Data Previous Rx's Medication Instructions Recorded Last Taken Type Benztropine [Cogentin] 0.5 mg PO HS #30 tablet 01/25/17 Unknown Rx OLANzapine [ZyPREXA] 5 mg PO HS #30 tablet 01/25/17 Unknown Rx Allergies Allergy/AdvReac Type Severity Reaction Status Date / Time No Known Allergies Allergy Verified 02/21/17 20:54 ED Review of Systems ROS: Stated complaint: CHEST PAIN Other details as noted in HPI Comment: All other systems reviewed and negative Constitutional: denies: fever Eyes: denies: eye pain ENT: denies: throat pain Respiratory: denies: cough Cardiovascular: as per HPI Endocrine: denies: unexplained weight loss Gastrointestinal: denies: abdominal pain Genitourinary: denies: dysuria Musculoskeletal: denies: back pain Skin: denies: rash Neurological: denies: headache Hematological/Lymphatic: denies: easy bruising ED Past Medical Hx - Past Medical History Hx Hypertension: Yes Hx Heart Attack/AMI: Yes (Arrhythmia) Hx Renal Disease: Yes Hx Psychiatric Treatment: Yes (schizophrenia) Hx HIV: No Additional medical history: PNEUMONIA, kidney problems afib - Surgical History Additional Surgical History: hernia removal 2010, "surgery for colon cancer" - Family History Family history: hypertension - Social History Smoking Status: Current Every Day Smoker (We discussed tobacco cessation x3 minutes) Substance Use Type: None - Medications Home Medications: Home Medications Medication Instructions Recorded Confirmed Last Taken Type Benztropine [Cogentin] 0.5 mg PO HS #30 tablet 01/25/17 02/22/17 Unknown Rx OLANzapine [ZyPREXA] 5 mg PO HS #30 tablet 01/25/17 02/22/17 Unknown Rx ED Physical Exam - General Limitations: No Limitations, Other (Pulse ox noted and normal) General appearance: alert, in no apparent distress - Head Head exam: Present: atraumatic, normocephalic, normal inspection - Eye Eye exam: Present: normal appearance, EOMI. Absent: scleral icterus - ENT ENT exam: Present: normal exam, normal orophraynx - Neck Neck exam: Absent: tenderness, meningismus - Respiratory Respiratory exam: Present: normal lung sounds bilaterally. Absent: respiratory distress - Cardiovascular Cardiovascular Exam: Present: tachycardia, irregular rhythm - GI/Abdominal GI/Abdominal exam: Present: soft. Absent: distended, tenderness - Extremities Exam Extremities exam: Present: normal capillary refill. Absent: calf tenderness - Back Exam Back exam: Absent: CVA tenderness (R), CVA tenderness (L) - Neurological Exam Neurological exam: Present: alert, oriented X3, CN II-XII intact. Absent: motor sensory deficit - Psychiatric Psychiatric exam: Present: normal affect, normal mood - Skin Skin exam: Present: warm, dry ED Course Vital Signs 01/21/21 01/22/21 01/22/21 23:33 01:00 01:10 Temperature 98.1 F Pulse Rate 94 H 158 H 107 H Respiratory 18 21 21 Rate Blood Pressure Blood Pressure 160/120 133/88 [Left] O2 Sat by Pulse 95 94 95 Oximetry 01/22/21 01/22/21 02:01 02:15 Temperature Pulse Rate 99 H 96 H Respiratory 20 18 Rate Blood Pressure 128/87 128/87 Blood Pressure [Left] O2 Sat by Pulse 91 92 Oximetry - Reevaluation(s) Reevaluation #1: 01/21/21 23:29 EMS had been met upon arrival. Labs and EKG and x-ray were ordered. Old records reviewed. Reevaluation #2: 01/22/21 03:38 Labs have been reviewed. We did order Cardizem. Patient's rate came down to right at 100 prior to Cardizem administration. He was still in atrial fib/atrial flutter. I do believe that discharge would be appropriate at this time. 01/22/21 03:39 ED Medical Decision Making - Lab Data Result diagrams: 01/21/21 23:05 01/21/21 23:05 Rhythm strip: Atrial flutter with a rapid response versus A. fib with RVR and rates of 130s. Monitor was observed for 10 seconds. Rhythm strip #2: Atrial fibrillation with a rapid ventricular response at 101. Monitor was observed 10 seconds. - EKG Data -: EKG Interpreted by Me - EKG Data 01/22/21 01:33 2352-EKG shows atrial flutter with a variable block. Patient has a rate of 132. QT corrected is normal at 479. QRS is normal at 95. There is artifact noted. Patient has no evidence of ST elevation to suggest STEMI. There is no ST depression suggestive of ischemia. He has atrial flutter from prior history. There is no change from prior EKG. - Medical Decision Making Patient has a long history of dysrhythmia including atrial fib. He does verbalize this. He will be treated symptomatically and referred. He is not an ticoagulated. He states however that he does not really know all of his medications. He could be on something to thin his blood due to his stroke previously. He does not have evidence of STEMI or NSTEMI. He does not have evidence of profound electrolyte derangement or metabolic derangement. There is no obvious infectious pathology. There is no STEMI. Critical Care Time: No Critical care attestation.: If time is entered above; I have spent that time in minutes in the direct care of this critically ill patient, excluding procedure time. ED Disposition Clinical Impression: Palpitations Disposition: 01 HOME / SELF CARE / HOMELESS Is pt being admited?: No Condition: Stable Instructions: Palpitations Additional Instructions: Take your medication at home. Drink plenty water. Return for problems. 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 Referrals: BERTHA GALVAN MD [Primary Care Provider] - 3-5 Days CHICHO WEBER MD [Staff Physician] - 3-5 Days
[2021-01-21 23:50] LABS: BUN/Creatinine Ratio 11; Blood Urea Nitrogen 13 mg/dL (9-20); Calcium 9.1 mg/dL (8.4-10.2); Hemolysis Index 86
[2021-01-22 00:02] LABS: Basophils % (Auto) 0.3 % (0.0-1.8); Eosinophils % (Auto) 0.4 % (0.0-4.3); Hematocrit 45.5 % (35.5-45.6); Hemoglobin 15.1 gm/dl (11.8-15.2); Lymphocytes # (Auto) 1.6 K/mm3 (1.2-5.4); Lymphocytes % (Auto) 15.8 % (13.4-35.0); Mean Corpuscular HGB Conc 33 % (32-34); Mean Corpuscular Volume 94 fl (84-94); Monocytes # (Auto) 0.8 K/mm3 (0.0-0.8); Platelet Count 214 K/mm3 (140-440); Red Blood Count 4.84 M/mm3 (3.65-5.03)
--- NOTE | 2021-01-22 00:10 | XRay Report ---
CHEST 1 VIEW 01/22/2021 12:00 AM INDICATION / CLINICAL INFORMATION: Chest Pain. COMPARISON: 12/29/16 FINDINGS: SUPPORT DEVICES: None. HEART / MEDIASTINUM: No significant abnormality. LUNGS / PLEURA: Patchy density in the left lung base may represent developing pneumonia. No pneumotho rax. ADDITIONAL FINDINGS: No significant additional findings. IMPRESSION: 1. Possible left lung base pneumonia. Erect PA and lateral chest radiograph may be helpful for furthe r evaluation. Signer Name: Wilbert Chandra MD Signed: 01/22/2021 12:06 AM Workstation Name: [id number]
[2021-01-22] MEDS ORDERED: dilTIAZem 25 MG/5 ML INJ IV ONE (00:38)
[2021-01-22] MEDS ORDERED: dilTIAZem/D5W 100 MG/100 ML BAG IV SCH (01:00)
[2021-01-22 02:56] VITALS: BP 128/87
--- NOTE | 2021-01-23 11:43 | Electrocardiograph Report ---
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
== END 2021-01-22 02:30 | disposition home or self-care (01) ==
LOC: ED 22:34
DX: R00.2 Palpitations (principal); I10 Essential (primary) hypertension; N28.9 Disorder of kidney and ureter, unspecified; F20.9 Schizophrenia, unspecified; Z98.890 Other specified postprocedural states; F17.200 Nicotine dependence, unspecified, uncomplicated
CPT/HCPCS: 36415; 71045; 80048; 84484; 85025; 93005; 99284

== ENCOUNTER 2021-06-21 22:00 | Emergency (ER) | payer MEDICAID ==
--- NOTE | 2021-06-21 22:09 | Emergency Department Report ---
HPI - General Chief Complaint: Arrhythmia/Palpitations Time Seen by Provider: 06/21/21 22:01 - HPI HPI: 76-year-old male brought in from a local motel where he lives by himself who called because for the whole day today he has been experiencing palpitations. He has a history of intermittent atrial fibrillation and he says it started today with a feeling of fluttering in his chest that he denies it to be painful; it is just discomfort. He denies nausea vomiting fever chills shortness of breath or dyspnea on exertion. He also reports that for the last 2 months he has had increasing bilateral lower extremity edema. He does report some orthopnea. He denies any other associated symptoms. Exercise makes this worse and nothing makes it better. He is currently taking absolutely no medications. ED Past Medical Hx - Past Medical History Hx Hypertension: Yes Hx Heart Attack/AMI: Yes (Arrhythmia) Hx Diabetes: Yes Hx Renal Disease: Yes Hx Psychiatric Treatment: Yes (schizophrenia) Hx HIV: No Additional medical history: PNEUMONIA, kidney problems afib - Surgical History Additional Surgical History: hernia removal 2010, "surgery for colon cancer" - Social History Smoking Status: Current Every Day Smoker (We discussed tobacco cessation x3 minutes) Substance Use Type: None - Medications Home Medications: Home Medications Medication Instructions Recorded Confirmed Last Taken Type Benztropine [Cogentin] 0.5 mg PO HS #30 tablet 01/25/17 02/22/17 Unknown Rx OLANzapine [ZyPREXA] 5 mg PO HS #30 tablet 01/25/17 02/22/17 Unknown Rx ED Review of Systems ROS: Stated complaint: CHEST PAIN Other details as noted in HPI Comment: Unobtainable due to pts medical conditions Physical Exam - Physical Exam Vital Signs: As charted by nursing Physical Exam: physical Exam Constitutional: General: He is not in acute distress. Appearance: He is not diaphoretic. HENT: Head: Normocephalic. Eyes: Pupils: Pupils are equal, round, and reactive to light. Neck: Musculoskeletal: Normal range of motion. Cardiovascular: Rate and Rhythm: Normal rate and regular rhythm. Pulses: Intact distal pulses. Heart sounds: Normal heart sounds. No murmur. Pulmonary: Effort: No respiratory distress. Breath sounds: No wheezing or rales. Chest: Chest wall: No tenderness. Abdominal: General: There is no distension. Palpations: There is no mass. Tenderness: There is no abdominal tenderness. There is no guarding or rebound. Musculoskeletal: Normal range of motion. Skin: General: Skin is warm and dry. Neurological: Mental Status: He is alert and oriented to person, place, and time. Psychiatric: Mood and Affect: Mood and affect normal. Cognition and Memory: Memory normal. Judgment: Judgment normal. Extremities: The patient has bilateral +2 pretibial edema, pitting. ED Course - Reevaluation(s) Reevaluation #1: 06/22/21 01:28 The second EKG was done at 00 40 3 AM and had a rate of 99, normal. The rhythm was sinus rhythm, there are no ST or T wave abnormalities. He converted spontaneously while in the emergency department to normal sinus rhythm. The patient has had this many times he has a history of intermittent atrial fibrillation. I will put him on metoprolol to see if we can avoid further recurrences and he will follow up with the PCP as soon as possible. 06/22/21 01:29 ED Medical Decision Making - Lab Data Result diagrams: 06/21/21 22:45 06/21/21 22:45 No standard instances Rhythm: A.Fib (EKG done and interpreted at 2205 shows a rate of 150, tachyc ardia. The rhythm is atrial fibrillation with rapid ventricular rate. There is rate related ST depression.) Critical care attestation.: If time is entered above; I have spent that time in minutes in the direct care of this critically ill patient, excluding procedure time. ED Disposition Clinical Impression: Atrial fibrillation with rapid ventricular response Clinical Impression: (Ruled Out): Atrial fibrillation with controlled ventricular rate Disposition: HOME / SELF CARE / HOMELESS Is pt being admited?: No Does the pt Need Aspirin: No Condition: Good Instructions: Atrial Fibrillation, [id number] Referrals: PRIMARY CARE, [Primary Care Provider] - 3-5 Days Time of Disposition: 01:30
--- NOTE | 2021-06-21 22:40 | XRay Report ---
CHEST 1 VIEW INDICATION / CLINICAL INFORMATION: Dysrhythmia. COMPARISON: 01/22/2021 FINDINGS: SUPPORT DEVICES: None. HEART / MEDIASTINUM: No significant abnormality. LUNGS / PLEURA: Patchy bibasilar streaky opacities. No focal consolidation or significant effusion. N o pneumothorax. ADDITIONAL FINDINGS: No significant additional findings. IMPRESSION: 1. Chronic appearing patchy bibasilar streaky opacities, could reflect scarring or atelectasis. No a cute focal consolidation. Signer Name: Blu Pinedo MD Signed: 06/21/2021 10:36 PM Workstation Name: [id number]
[2021-06-21 22:57] LABS: Basophils # (Auto) 0.1 K/mm3 (0.0-0.1); Basophils % (Auto) 0.6 % (0.0-1.8); Eosinophils % (Auto) 0.4 % (0.0-4.3); Hematocrit 43.9 % (35.5-45.6); Hemoglobin 14.5 gm/dl (11.8-15.2); Mean Corpuscular HGB Conc 33 % (32-34); Mean Corpuscular Volume 93 fl (84-94); Monocytes # (Auto) 0.6 K/mm3 (0.0-0.8); Monocytes % (Auto) 6.4 % (0.0-7.3); Platelet Count 223 K/mm3 (140-440); Red Blood Count 4.74 M/mm3 (3.65-5.03); Red Cell Distribution Width 16.3 % (13.2-15.2)
[2021-06-21 23:22] LABS: Creatine Kinase MB 4.5 ng/mL (0.0-4.0)
[2021-06-21 23:23] LABS: Alanine Aminotransferase 21 units/L (7-56); Albumin 3.8 g/dL (3.9-5); BUN/Creatinine Ratio 20; Blood Urea Nitrogen 24 mg/dL (9-20); Calcium 9.4 mg/dL (8.4-10.2); Hemolysis Index 55
[2021-06-22 02:17] VITALS: BP 110/69
--- NOTE | 2021-06-23 10:23 | Electrocardiograph Report ---
[facility] Test Date: 2021-06-22 Test Time: 00:43:03 Pat Name: ARNULFO MARAVILLA Department: Room: Gender: M General Operator: TIFFANI : 1945 Requested By: ROGELIO DIXON Order Number: [id number] Reading MD: Gama Velazquez Measurements Intervals [place] Rate: 99 P: 78 [place]: 168 QRS: 6 QRSD: 84 T: 62 QT: 362 QTc: 464 Interpretive Statements Sinus rhythm Low voltage, precordial leads Compared to ECG 06/21/2021 22:05:21 Atrial fibrillation no longer present ST (T wave) deviation no longer present Electronically Signed On 06-23-2021 10:23:15 EDT by Gama Vleazquez
--- NOTE | 2021-06-23 10:23 | Electrocardiograph Report ---
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
== END 2021-06-22 02:16 | disposition home or self-care (01) ==
LOC: ED 22:00
DX: I48.20 Chronic atrial fibrillation, unspecified (principal); I10 Essential (primary) hypertension; I21.9 Acute myocardial infarction, unspecified; E11.9 Type 2 diabetes mellitus without complications; N28.9 Disorder of kidney and ureter, unspecified; F20.9 Schizophrenia, unspecified; Z98.890 Other specified postprocedural states; F17.200 Nicotine dependence, unspecified, uncomplicated
CPT/HCPCS: 36415; 71045; 80053; 82550; 82553; 83735; 83880; 84484; 85025; 93005; 99284

== ENCOUNTER 2021-07-15 20:45 | Emergency (ER) | payer MEDICAID, MEDICARE ==
--- NOTE | 2021-07-16 06:45 | XRay Report ---
CHEST 2 VIEWS INDICATION / CLINICAL INFORMATION: palpitations hx of covid. COMPARISON: Chest x-ray from 08/05/2021 FINDINGS: SUPPORT DEVICES: None. HEART / MEDIASTINUM: No significant abnormality. LUNGS / PLEURA: No significant pulmonary or pleural abnormality. No pneumothorax. BONES: No significant osseous abnormality. ADDITIONAL FINDINGS: No significant additional findings. IMPRESSION: 1. No active cardiopulmonary disease. Signer Name: Porfirio Hatch II, MD Signed: 07/16/2021 6:40 AM Workstation Name: [id number]
[2021-07-16 07:31] LABS: Basophils % (Auto) 0.4 % (0.0-1.8); Eosinophils # (Auto) 0.1 K/mm3 (0.0-0.4); Hematocrit 48.3 % (35.5-45.6); Hemoglobin 15.9 gm/dl (11.8-15.2); Lymphocytes # (Auto) 1.9 K/mm3 (1.2-5.4); Lymphocytes % (Auto) 25.6 % (13.4-35.0); Mean Corpuscular HGB Conc 33 % (32-34); Mean Corpuscular Volume 93 fl (84-94); Monocytes # (Auto) 0.6 K/mm3 (0.0-0.8); Monocytes % (Auto) 8.3 % (0.0-7.3); Platelet Count 197 K/mm3 (140-440); Red Cell Distribution Width 15.2 % (13.2-15.2)
[2021-07-16 07:45] LABS: BUN/Creatinine Ratio 22; Blood Urea Nitrogen 20 mg/dL (9-20); Calcium 9.3 mg/dL (8.4-10.2); Hemolysis Index 10
[2021-07-16 07:53] LABS: INR 0.96 (0.87-1.13)
--- NOTE | 2021-07-16 09:24 | Emergency Department Report ---
ED General Adult HPI - General Chief complaint: Arrhythmia/Palpitations Stated complaint: HEART PALPATIONS Time Seen by Provider: 07/16/21 09:23 Source: patient, EMS ( EMS documentation not available at time of chart dictation ), RN notes reviewed, old records reviewed Mode of arrival: Stretcher Limitations: No Limitations - History of Present Illness Initial comments: The patient was evaluated in the emergency department for symptoms described in the history of present illness. He/she was evaluated in the context of the global COVID-19 pandemic, which necessitated consideration that the patient might be at risk for infection with the virus that causes COVID-19. Institutional protocols and algorithms that pertain to the evaluation of patients at risk for COVID-19 are in a state of rapid change based on information released by regulatory bodies including the CDC and federal and state organizations. These policies and algorithms were followed during the patient's care in the emergency department. Please note that these policies, procedures and recommendations changed on a rapid basis. During the history and physical examination, I had on complete personal protective equipment. This is a pleasant and cooperative 76-year-old gentleman. He was recently diagnosed with COVID-19. He presents to the ER today with a complaint of painless palpitations. He denies physical pain. He is not homicidal suicidal. He has chronic shortness of breath. He denies DVT/PE risk factors. He does not describe exacerbating or relieving factors. Shortness of breath not new, worsened or different. -: days(s) Consistency: other Improves with: other Worsens with: other - Related Data Previous Rx's Medication Instructions Recorded Last Taken Type Benztropine [Cogentin] 0.5 mg PO HS #30 tablet 01/25/17 Unknown Rx OLANzapine [ZyPREXA] 5 mg PO HS #30 tablet 01/25/17 Unknown Rx Metoprolol Xl [Metoprolol 50 mg PO QDAY #30 tablet 06/22/21 Unknown Rx SUCCINATE ER TAB] Allergies Allergy/AdvReac Type Severity Reaction Status Date / Time No Known Allergies Allergy Verified 02/21/17 20:54 ED Review of Systems ROS: Stated complaint: HEART PALPATIONS Other details as noted in HPI Constitutional: denies: fever Eyes: denies: eye discharge ENT: denies: congestion Respiratory: shortness of breath. denies: wheezing Cardiovascular: edema. denies: chest pain Gastrointestinal: denies: abdominal pain, hematemesis, melena, hematochezia Genitourinary: denies: dysuria Musculoskeletal: denies: back pain Psychiatric: denies: homicidal thoughts, suicidal thoughts ED Past Medical Hx - Past Medical History Hx Hypertension: Yes Hx Heart Attack/AMI: Yes (Arrhythmia) Hx Diabetes: Yes Hx Renal Disease: Yes Hx Psychiatric Treatment: Yes (schizophrenia) Hx HIV: No Additional medical history: PNEUMONIA, kidney problems afib - Surgical History Past Surgical History?: No Additional Surgical History: hernia removal 2010, "surgery for colon cancer" - Social History Smoking Status: Unknown if ever smoked Substance Use Type: None - Medications Home Medications: Home Medications Medication Instructions Recorded Confirmed Last Taken Type Benztropine [Cogentin] 0.5 mg PO HS #30 tablet 01/25/17 02/22/17 Unknown Rx OLANzapine [ZyPREXA] 5 mg PO HS #30 tablet 01/25/17 02/22/17 Unknown Rx Metoprolol Xl [Metoprolol 50 mg PO QDAY #30 tablet 06/22/21 Unknown Rx SUCCINATE ER TAB] ED Physical Exam - General Limitations: No Limitations General appearance: alert, in no apparent distress - Head Head exam: Present: atraumatic, normocephalic - Eye Eye exam: Present: normal appearance, EOMI. Absent: nystagmus - ENT ENT exam: Present: normal exam, normal orophraynx, mucous membranes moist, normal external ear exam - Neck Neck exam: Present: normal inspection, full ROM. Absent: tenderness, meningismus - Respiratory Respiratory exam: Present: other (Pulmonary auscultation not performed secondary to lack of disposable stethoscope). Absent: respiratory distress, stridor - Cardiovascular Cardiovascular Exam: Present: other (Cardiac auscultation not performed second lupillo to lack of disposable stethoscope) - GI/Abdominal GI/Abdominal exam: Present: soft. Absent: distended, tenderness, guarding, rebound, rigid, pulsatile mass - Rectal Rectal exam: Present: deferred - Extremities Exam Extremities exam: Present: normal inspection, full ROM, pedal edema, other (2+ pulses noted in the bilateral upper and lower extremities. There is no palpable cord. negative Homans sign. Muscular compartments are soft. The pelvis is stable.). Absent: calf tenderness - Back Exam Back exam: Present: normal inspection, full ROM. Absent: tenderness, CVA tenderness (R), CVA tenderness (L), paraspinal tenderness, vertebral tenderness - Neurological Exam Neurological exam: Present: alert, oriented X3, normal gait, other (No facial droop. Tongue midline. Extraocular movements intact bilaterally. Facial sensation intact to light touch in V1, V2, V3 distribution bilaterally. 5 and a 5 strength in 4 extremities. Sensation intact to light touch in 4 extremities.). Absent: motor sensory deficit - Psychiatric Psychiatric exam: Absent: homicidal ideation, suicidal ideation - Skin Skin exam: Present: warm, dry, intact, normal color. Absent: rash ED Course Vital Signs 07/15/21 07/16/21 07/16/21 21:01 09:27 09:32 Temperature 97.5 F L Pulse Rate 85 65 Respiratory 18 21 15 Rate Blood Pressure 140/80 Blood Pressure 132/77 [Right] O2 Sat by Pulse 98 97 97 Oximetry ED Medical Decision Making - Lab Data Result diagrams: 07/16/21 06:42 07/16/21 06:42 Vital Signs 07/15/21 07/16/21 07/16/21 21:01 09:27 09:32 Temperature 97.5 F L Pulse Rate 85 65 Respiratory 18 21 15 Rate Blood Pressure 140/80 Blood Pressure 132/77 [Right] O2 Sat by Pulse 98 97 97 Oximetry Lab Results 07/16/21 07/16/21 07/16/21 Range/Units 06:42 06:42 06:42 WBC 7.4 (4.5-11.0) K/mm3 RBC 5.20 H (3.65-5.03) M/mm3 Hgb 15.9 H (11.8-15.2) gm/dl Hct 48.3 H (35.5-45.6) % MCV 93 (84-94) fl MCH 31 (28-32) pg MCHC 33 (32-34) % RDW 15.2 (13.2-15.2) % Plt Count 197 (140-440) K/mm3 Lymph % (Auto) 25.6 (13.4-35.0) % [place] % (Auto) 8.3 H (0.0-7.3) % Eos % (Auto) 1.0 (0.0-4.3) % Baso % (Auto) 0.4 (0.0-1.8) % Lymph # (Auto) 1.9 (1.2-5.4) K/mm3 [place] # (Auto) 0.6 (0.0-0.8) K/mm3 Eos # (Auto) 0.1 (0.0-0.4) K/mm3 Baso # (Auto) 0.0 (0.0-0.1) K/mm3 Seg Neutrophils % 64.7 (40.0-70.0) % Seg Neutrophils # 4.8 (1.8-7.7) K/mm3 PT 13.8 (12.2-14.9) Sec. INR 0.96 (0.87-1.13) Sodium 141 (137-145) mmol/L Potassium 4.3 (3.6-5.0) mmol/L Chloride 103.3 (98-107) mmol/L Carbon Dioxide 27 (22-30) mmol/L Anion Gap 15 mmol/L BUN 20 (9-20) mg/dL Creatinine 0.9 (0.8-1.3) mg/dL Estimated GFR > 60 ml/min BUN/Creatinine Ratio 22 % Glucose 93 (75-100) mg/dL Calcium 9.3 (8.4-10.2) mg/dL Magnesium (1.7-2.3) mg/dL TSH (0.270-4.200) mlU/mL 07/16/21 07/16/21 Range/Units 06:42 06:42 WBC (4.5-11.0) K/mm3 RBC (3.65-5.03) M/mm3 Hgb (11.8-15.2) gm/dl Hct (35.5-45.6) % MCV (84-94) fl MCH (28-32) pg MCHC (32-34) % RDW (13.2-15.2) % Plt Count (140-440) K/mm3 Lymph % (Auto) (13.4-35.0) % [place] % (Auto) (0.0-7.3) % Eos % (Auto) (0.0-4.3) % Baso % (Auto) (0.0-1.8) % Lymph # (Auto) (1.2-5.4) K/mm3 [place] # (Auto) (0.0-0.8) K/mm3 Eos # (Auto) (0.0-0.4) K/mm3 Baso # (Auto) (0.0-0.1) K/mm3 Seg Neutrophils % (40.0-70.0) % Seg Neutrophils # (1.8-7.7) K/mm3 PT (12.2-14.9) Sec. INR (0.87-1.13) Sodium (137-145) mmol/L Potassium (3.6-5.0) mmol/L Chloride (98-107) mmol/L Carbon Dioxide (22-30) mmol/L Anion Gap mmol/L BUN (9-20) mg/dL Creatinine (0.8-1.3) mg/dL Estimated GFR ml/min BUN/Creatinine Ratio % Glucose (75-100) mg/dL Calcium (8.4-10.2) mg/dL Magnesium 2.40 H (1.7-2.3) mg/dL TSH 4.010 (0.270-4.200) mlU/mL - EKG Data -: EKG Interpreted by Ga EKG shows normal: sinus rhythm Rate: normal - EKG Data Interpretation: unchanged when compared t 07/16/21 10:22 The EKG today is interpreted at 07: 36. Sinus rhythm, rate 65 bpm. Normal axis, normal P wave axis, QTC 4 4 8 ms, and low voltage in the inferior leads. This is an abnormal EKG. This is not a STEMI. - Radiology Data Radiology results: pending, report reviewed, image reviewed CHEST 1 VIEW INDICATION / CLINICAL INFORMATION: Dysrhythmia. COMPARISON: 01/22/2021 FINDINGS: SUPPORT DEVICES: None. HEART / MEDIASTINUM: No significant abnormality. LUNGS / PLEURA: Patchy bibasilar streaky opacities. No focal consolidation or significant effusion. No pneumothorax. ADDITIONAL FINDINGS: No significant additional findings. IMPRESSION: 1. Chronic appearing patchy bibasilar streaky opacities, could reflect scarring or atelectasis. No acute focal consolidation. Signer Name: Blu Pinedo MD Signed: 06/21/2021 9:36 PM Workstation Name: [id number] CHEST 2 VIEWS INDICATION / CLINICAL INFORMATION: palpitations hx of covid. COMPARISON: Chest x-ray from 08/05/2021 FINDINGS: SUPPORT DEVICES: None. HEART / MEDIASTINUM: No significant abnormality. LUNGS / PLEURA: No significant pulmonary or pleural abnormality. No pneumothorax. BONES: No significant osseous abnormality. ADDITIONAL FINDINGS: No significant additional findings. IMPRESSION: 1. No active cardiopulmonary disease. Signer Name: Porfirio Hatch II, MD Signed: 07/16/2021 5:40 AM Workstation Name: [id number] - Medical Decision Making Differential diagnosis, including but not limited to: Pneumonia, CHF, COVID-19 Electrolyte derangement, thyroid derangement Assessment and plan: 24-wyup-[age]gt-year-old gentleman, who was afebrile, with reassuring vital signs, clinically sober, not currently tachycardic, tachypneic or hypoxic, who denies DVT/PE risk factors, who is low risk by Wells criteria for pulmonary embolism, not homicidal, not suicidal, not hypoxic and in no respiratory distress, with a chief complaint of painless palpitations. X-ray of the chest unremarkable. Physical exam unremarkable with exception of mild asymptomatic lower extremity edema. Laboratory studies nonactionable. Patient resting comfortably in stretcher, and in no acute distress. He does not appear to have a condition at this time which would require admission to the hospital, and he does not appear to have an emergent medical condition present today. He does not meet criteria for 1013 hold or involuntary confinement. He may follow- up expectantly with his outpatient primary care doctor for his chief complaint of painless palpitations and heart racing. Critical care attestation.: If time is entered above; I have spent that time in minutes in the direct care of this critically ill patient, excluding procedure time. ED Disposition Clinical Impression: Heart palpitations, History of COVID-19 Disposition: 01 HOME / SELF CARE / HOMELESS Is pt being admited?: No Does the pt Need Aspirin: No Condition: Good Instructions: Palpitations, [id number] Additional Instructions: Please continue current outpatient medications. Please purchase [id number] compression stockings for lower extremity swelling. Patient may take [id number] Tylenol or ibuprofen as needed for physical pain. Recommend avoidance of consumption of alcohol, tobacco, smoke products, caffeine, energy drinks, or stimulants. Recommend follow-up with an outpatient primary care doctor within the next 2 weeks. Wash hands frequently, thoroughly and often. Avoid contact/interaction with the very elderly and very young, and those who are immune compromised. Please return to the emergency room right away with new pain, worsened pain, migration of pain, projectile vomiting, change in mental status, confusion, inability tolerate liquid feeds, new, worsened or different symptoms not present on the initial emergency room evaluation Referrals: [facility] [Provider Group] - 3-[address] [facility] [Provider Group] - 3-5 Days
[2021-07-16 09:32] VITALS: BP 132/77
[2021-07-16] MEDS ORDERED: SODIUM CHLORIDE 0.9% 500 ML 500 ML ONE (19:22)
--- NOTE | 2021-07-18 13:22 | Electrocardiograph Report ---
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
== END 2021-07-16 10:44 | disposition home or self-care (01) ==
LOC: ED 20:45
DX: R00.2 Palpitations (principal); R79.1 Abnormal coagulation profile; Z86.16 Personal history of COVID-19; Z79.899 Other long term (current) drug therapy
CPT/HCPCS: 36415; 71046; 80048; 83735; 84443; 85025; 85610; 93005; 99284; J7040

== ENCOUNTER 2021-07-23 02:58 | Emergency (ER) | payer MEDICARE ==
[2021-07-23] MEDS ORDERED: SODIUM CHLORIDE 0.9% 1000 ML 1,000 ML IV ONE (08:29)
[2021-07-23 08:42] LABS: Basophils # (Auto) 0.1 K/mm3 (0.0-0.1); Basophils % (Auto) 0.6 % (0.0-1.8); Eosinophils # (Auto) 0.1 K/mm3 (0.0-0.4); Eosinophils % (Auto) 0.4 % (0.0-4.3); Hematocrit 46.4 % (35.5-45.6); Lymphocytes # (Auto) 2.9 K/mm3 (1.2-5.4); Lymphocytes % (Auto) 18.9 % (13.4-35.0); Mean Corpuscular HGB Conc 32 % (32-34); Mean Corpuscular Volume 92 fl (84-94); Monocytes # (Auto) 1.2 K/mm3 (0.0-0.8); Monocytes % (Auto) 8.1 % (0.0-7.3); Platelet Count 225 K/mm3 (140-440); Red Blood Count 5.05 M/mm3 (3.65-5.03); Red Cell Distribution Width 15.1 % (13.2-15.2)
[2021-07-23 09:10] LABS: Alanine Aminotransferase 27 units/L (7-56); Albumin 4.4 g/dL (3.9-5); BUN/Creatinine Ratio 25; Blood Urea Nitrogen 25 mg/dL (9-20); Calcium 9.3 mg/dL (8.4-10.2); Hemolysis Index 12
--- NOTE | 2021-07-23 09:13 | Emergency Department Report ---
ED General Adult HPI - General Chief complaint: Medical Clearance Stated complaint: EXHAUSTION Time Seen by Provider: 07/23/21 08:33 Source: patient, EMS Mode of arrival: Ambulatory Limitations: No Limitations - History of Present Illness Initial comments: This is a 76-year-old male seen on 07/15/2021 for same complatint, with normal workup. pt returns via EMS stating exhaustion, states he was recently diagnosed with COVID-19. States painless palpitations, denies CP, no n/v no dizziness , no lightheadedness, no diaphoresis no fever or chills. He denies other pain or discomfort. He denies exacerbating or relieving factors. PT is not homicidal or suicidal. He has chronic shortness of breath wich is not worsened. He denies DVT/PE risk factors. - Related Data Previous Rx's Medication Instructions Recorded Last Taken Type Benztropine [Cogentin] 0.5 mg PO HS #30 tablet 01/25/17 Unknown Rx OLANzapine [ZyPREXA] 5 mg PO HS #30 tablet 01/25/17 Unknown Rx Metoprolol Xl [Metoprolol 50 mg PO QDAY #30 tablet 06/22/21 Unknown Rx SUCCINATE ER TAB] Albuterol Mdi (or & Nicu Only) 2 puff IH QID PRN #8.5 gram 07/23/21 Unknown Rx [ProAir HFA Inhaler] Azithromycin 500 mg PO DAILY #5 07/23/21 Unknown Rx dexAMETHasone [Decadron] 4 mg PO BID 5 Days #10 tablet 07/23/21 Unknown Rx Allergies Allergy/AdvReac Type Severity Reaction Status Date / Time No Known Allergies Allergy Verified 07/23/21 09:57 ED Review of Systems ROS: Stated complaint: EXHAUSTION Other details as noted in HPI Constitutional: malaise. denies: chills, fever Eyes: denies: eye pain, eye discharge, vision change ENT: congestion. denies: ear pain, throat pain Respiratory: cough, shortness of breath. denies: orthopnea, wheezing Cardiovascular: palpitations. denies: chest pain, orthopnea, syncope, paroxys mal nocturnal dyspnea Endocrine: no symptoms reported Gastrointestinal: as per HPI. denies: abdominal pain, nausea, vomiting, diarrhea, constipation Genitourinary: denies: urgency, dysuria Musculoskeletal: denies: back pain, joint swelling, arthralgia Skin: denies: rash, lesions Neurological: denies: headache, weakness, numbness, paresthesias, confusion, vertigo Psychiatric: denies: anxiety, depression, auditory hallucinations, visual hallucinations, homicidal thoughts, suicidal thoughts Hematological/Lymphatic: denies: easy bleeding, easy bruising ED Past Medical Hx - Past Medical History Previous Medical History?: Yes Hx Hypertension: Yes Hx Heart Attack/AMI: Yes (Arrhythmia) Hx Diabetes: Yes Hx Renal Disease: Yes Hx Psychiatric Treatment: Yes (schizophrenia) Hx HIV: No Additional medical history: PNEUMONIA, kidney problems afib - Surgical History Past Surgical History?: Yes Additional Surgical History: hernia removal 2010, "surgery for colon cancer" - Social History Smoking Status: Unknown if ever smoked Substance Use Type: None - Medications Home Medications: Home Medications Medication Instructions Recorded Confirmed Last Taken Type Benztropine [Cogentin] 0.5 mg PO HS #30 tablet 01/25/17 07/23/21 Unknown Rx OLANzapine [ZyPREXA] 5 mg PO HS #30 tablet 01/25/17 07/23/21 Unknown Rx Metoprolol Xl [Metoprolol 50 mg PO QDAY #30 tablet 06/22/21 07/23/21 Unknown Rx SUCCINATE ER TAB] Albuterol Mdi (or & Nicu Only) 2 puff IH QID PRN #8.5 gram 07/23/21 Unknown Rx [ProAir HFA Inhaler] Azithromycin 500 mg PO DAILY #5 07/23/21 Unknown Rx dexAMETHasone [Decadron] 4 mg PO BID 5 Days #10 tablet 07/23/21 Unknown Rx ED Physical Exam - General Limitations: No Limitations General appearance: alert, in no apparent distress - Head Head exam: Present: normocephalic, normal inspection - Eye Eye exam: Present: normal appearance, PERRL, EOMI. Absent: conjunctival injecti on, nystagmus Pupils: Present: normal accommodation - ENT ENT exam: Present: normal orophraynx, mucous membranes moist, TM's normal bila terally, normal external ear exam - Neck Neck exam: Present: normal inspection, full ROM. Absent: tenderness, lymphadenopathy - Respiratory Respiratory exam: Present: normal lung sounds bilaterally. Absent: respiratory distress, wheezes, rales, rhonchi, stridor, chest wall tenderness - Cardiovascular Cardiovascular Exam: Present: regular rate, normal rhythm, normal heart sounds. Absent: systolic murmur, diastolic murmur, rubs, gallop - GI/Abdominal GI/Abdominal exam: Present: soft, normal bowel sounds. Absent: distended, tenderness, guarding, rebound, rigid, bruit, hernia - Rectal Rectal exam: Present: deferred - Extremities Exam Extremities exam: Present: normal inspection, full ROM, normal capillary refill. Absent: pedal edema - Back Exam Back exam: Present: normal inspection, full ROM. Absent: CVA tenderness (R), CVA tenderness (L) - Neurological Exam Neurological exam: Present: alert, oriented X3, CN II-XII intact, normal gait - Expanded Neurological Exam Expanded Patient oriented to: Present: person, place, time Speech: Present: fluid speech Motor strength exam: RUE: 5, LUE: 5, RLE: 5, LLE: 5 Best Eye Response (Chloé): (4) open spontaneously Best Motor Response (Chloé): (6) obeys commands Best Verbal Response ([place]): (5) oriented Chloé Total: 15 - Psychiatric Psychiatric exam: Present: normal affect, normal mood - Skin Skin exam: Present: warm, dry, intact, normal color. Absent: rash ED Course Vital Signs 07/23/21 07/23/21 03:05 09:58 Temperature 98.6 F 99.6 F Pulse Rate 110 H 88 Respiratory 18 20 Rate Blood Pressure 130/86 152/89 [Right] O2 Sat by Pulse 96 97 Oximetry ED Medical Decision Making - Lab Data Result diagrams: 07/23/21 08:33 07/23/21 08:33 Labs 07/23/21 07/23/21 08:33 08:33 WBC 15.2 H RBC 5.05 H Hgb 15.0 Hct 46.4 H MCV 92 MCH 30 MCHC 32 RDW 15.1 Plt Count 225 Lymph % (Auto) 18.9 [place] % (Auto) 8.1 H Eos % (Auto) 0.4 Baso % (Auto) 0.6 Lymph # (Auto) 2.9 [place] # (Auto) 1.2 H Eos # (Auto) 0.1 Baso # (Auto) 0.1 Seg Neutrophils % 72.0 H Seg Neutrophils # 11.0 H Sodium 137 Potassium 3.8 Chloride 97.3 L Carbon Dioxide 24 Anion Gap 20 BUN 25 H Creatinine 1.0 Estimated GFR > 60 BUN/Creatinine Ratio 25 Glucose 84 Calcium 9.3 Total Bilirubin 0.50 AST 23 ALT 27 Alkaline Phosphatase 72 Troponin T < 0.010 Total Protein 6.7 Albumin 4.4 Albumin/Globulin Ratio 1.9 - EKG Data EKG shows normal: sinus rhythm, axis Rate: normal - EKG Data When compared to previous EKG there are: no significant change Interpretation: no acute changes EKG SR , PAC, QT 425mm/mv NSTEMI, no change from baseline ekg interpreted by ED attending. 07/23/21 11:13 - Radiology Data Radiology results: report reviewed, image reviewed XR chest routine 2V INDICATION / CLINICAL INFORMATION: palpitations. COMPARISON: 07/16/2021 FINDINGS: SUPPORT DEVICES: None. HEART /PULMONARY VASCULATURE: No significant abnormality. LUNGS / PLEURA: No significant pulmonary or pleural abnormality. No pneumothorax. ADDITIONAL FINDINGS: No significant additional findings. IMPRESSION: 1. No acute findings. Signer Name: Adolfo Camarillo MD Signed: 07/23/2021 9:12 AM Workstation Name: [id number] Transcribed By: PRAKASH Dictated By: ADOLFO CAMARILLO MD Electronically Authenticated By: ADOLFO CAMARILLO MD Signed Date/Time: 07/23/21911 DD/ 1 TD/TT: Print - Medical Decision Making There is currently no chest pain or shortness of breath no nausea no vomiting patient is tolerating p.o. intake, there are no palpitations at this time. This is a chronic problem for this patient. Patient appears nontoxic. Chest x-ray no opacities no infiltrates, labs noted for white count of 15, given recent history of COVID-19 diagnosis patient treated with Rocephin, Zithromax. Lung sounds remain clear respirations even unlabored. Patient is amatory in ED without increased shortness of breath or wheezing. Patient states symptoms are improved. There is no HI or SI, patient alert oriented x3 with no acute distress. Patient alert oriented x3 patient will be DC'd at this time will fo llow primary care doctor as scheduled in 2 days. Patient verbalized agreement understanding with discharge plan. Patient DC'd in stable condition at this time. Critical care attestation.: If time is entered above; I have spent that time in minutes in the direct care of this critically ill patient, excluding procedure time. ED Disposition Clinical Impression: Mild dehydration, Viral illness Disposition: 01 HOME / SELF CARE / HOMELESS Is pt being admited?: No Does the pt Need Aspirin: No Condition: Stable Instructions: Rehydration, Adult, Rehydration, Elderly, Viral Illness, Adult Additional Instructions: Take all medications as prescribed, follow-up with your doctor in 2 to 3 days. Return to emergency department should symptoms worsen. Continue to hydrate as directed. Prescriptions: Azithromycin 500 mg PO DAILY #5 dexAMETHasone [Decadron] 4 mg PO BID 5 Days #10 tablet Albuterol Mdi (or & Nicu Only) [ProAir HFA Inhaler] 2 puff IH QID PRN #8.5 gram PRN Reason: Shortness Of Breath Referrals: FRANCISCO MOYA MD [Staff Physician] - 3-5 Days Time of Disposition: 11:23
--- NOTE | 2021-07-23 09:16 | XRay Report ---
XR chest routine 2V INDICATION / CLINICAL INFORMATION: palpitations. COMPARISON: 07/16/2021 FINDINGS: SUPPORT DEVICES: None. HEART /PULMONARY VASCULATURE: No significant abnormality. LUNGS / PLEURA: No significant pulmonary or pleural abnormality. No pneumothorax. ADDITIONAL FINDINGS: No significant additional findings. IMPRESSION: 1. No acute findings. Signer Name: Galo Gutierrez MD Signed: 07/23/2021 9:12 AM Workstation Name: [id number]
[2021-07-23] MEDS ORDERED: AZITHROMYCIN 250 MG TAB PO ONE (09:23)
[2021-07-23] MEDS ORDERED: dexAMETHasone 20 MG/5 ML VIAL IV ONE (09:23)
[2021-07-23] MEDS ORDERED: cefTRIAXone/NS 1 GM/50 ML 1 GM/50 ML BAG IV ONE (09:23)
[2021-07-23 11:40] VITALS: BP 142/80
--- NOTE | 2021-07-24 09:13 | Electrocardiograph Report ---
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
== END 2021-07-23 12:22 | disposition home or self-care (01) ==
LOC: ED 02:58
DX: B34.9 Viral infection, unspecified (principal); E86.0 Dehydration; I10 Essential (primary) hypertension; I21.9 Acute myocardial infarction, unspecified; E11.9 Type 2 diabetes mellitus without complications; N28.9 Disorder of kidney and ureter, unspecified; F20.9 Schizophrenia, unspecified; Z79.899 Other long term (current) drug therapy
CPT/HCPCS: 36415; 71046; 80053; 84484; 85025; 93005; 96365; 96375; 99284; J0696; J1100; J7030

== ENCOUNTER 2021-08-16 14:55 | Inpatient (IN) | payer MEDICARE ==
[2021-08-16] MEDS ORDERED: methylPREDNISolone Sod Succinate 125 MG/2 ML INJ IV ONE ×2 (15:53→21:30)
[2021-08-16] MEDS ORDERED: SODIUM CHLORIDE 0.9% 1000 ML 1,000 ML IV ONE (15:53)
[2021-08-16] MEDS ORDERED: VANCOMYCIN/NS 1 GM/250 ML 1 GM/250 ML BAG IV ONE (15:53)
[2021-08-16] MEDS ORDERED: PIPERACIL-TAZO 2.25 GM/50 ML 2.25 GM/50 ML BAG IV ONE (15:53)
--- NOTE | 2021-08-16 16:02 | Emergency Department Report ---
ED Shortness of Breath HPI - General Chief Complaint: Dyspnea/Respdistress Stated Complaint: YUNIOR Time Seen by Provider: 08/16/21 15:46 Source: patient, EMS Mode of arrival: Stretcher Limitations: No Limitations - History of Present Illness Initial Comments: 73-year-old male with a history of schizophrenia, atrial fibrillation, hypertension, diabetes and COPD currently smoking about a pack a day who now presents with shortness of breath that is going on for the last 2 weeks progressively getting worse. Patient reported that he has not taken any of his medication including antihypertensive and rhythm control medication for the last 4 weeks because [place] Patient denies any chest pain. Patient also reports some fever but no chills. Patient denies any urinary symptoms. Walking from room to room worsen dyspnea. No other modifying or associated factors reported. MD Complaint: shortness of breath - Related Data Previous Rx's Medication Instructions Recorded Last Taken Type Azithromycin 500 mg PO DAILY #5 07/23/21 Unknown Rx Albuterol Mdi (or & Nicu Only) 2 puff IH QID PRN #8.5 gram 08/16/21 Unknown Rx [ProAir HFA Inhaler] Benztropine [Cogentin] 0.5 mg PO HS #30 tablet 08/16/21 Unknown Rx Metoprolol Xl [Metoprolol 50 mg PO QDAY #30 tablet 08/16/21 Unknown Rx SUCCINATE ER TAB] OLANzapine [ZyPREXA] 5 mg PO HS #30 tablet 08/16/21 Unknown Rx dexAMETHasone [Decadron] 4 mg PO BID 5 Days #10 tablet 08/16/21 Unknown Rx Allergies Allergy/AdvReac Type Severity Reaction Status Date / Time No Known Allergies Allergy Verified 08/16/21 21:32 ED Review of Systems ROS: Stated complaint: YUNIOR Other details as noted in HPI Comment: All other systems reviewed and negative Respiratory: cough, shortness of breath, SOB with exertion, SOB at rest Cardiovascular: palpitations. denies: chest pain Gastrointestinal: nausea. denies: abdominal pain, vomiting ED Past Medical Hx - Past Medical History Hx Hypertension: Yes Hx Heart Attack/AMI: Yes (Arrhythmia) Hx Diabetes: Yes Hx Renal Disease: Yes Hx Psychiatric Treatment: Yes (schizophrenia) Hx HIV: No Additional medical history: PNEUMONIA, kidney problems afib - Surgical History Additional Surgical History: hernia removal 2010, "surgery for colon cancer" - Social History Smoking Status: Unknown if ever smoked Substance Use Type: None - Medications Home Medications: Home Medications Medication Instructions Recorded Confirmed Last Taken Type Azithromycin 500 mg PO DAILY #5 07/23/21 Unknown Rx Albuterol Mdi (or & Nicu Only) 2 puff IH QID PRN #8.5 gram 08/16/21 Unknown Rx [ProAir HFA Inhaler] Benztropine [Cogentin] 0.5 mg PO HS #30 tablet 08/16/21 Unknown Rx Metoprolol Xl [Metoprolol 50 mg PO QDAY #30 tablet 08/16/21 Unknown Rx SUCCINATE ER TAB] OLANzapine [ZyPREXA] 5 mg PO HS #30 tablet 08/16/21 Unknown Rx dexAMETHasone [Decadron] 4 mg PO BID 5 Days #10 tablet 08/16/21 Unknown Rx ED Physical Exam - General Limitations: No Limitations General appearance: alert, in no apparent distress - Head Head exam: Present: normal inspection - Eye Eye exam: Present: normal appearance Pupils: Present: normal accommodation - ENT ENT exam: Present: normal exam, normal orophraynx, mucous membranes moist - Neck Neck exam: Present: normal inspection, full ROM. Absent: tenderness - Respiratory Respiratory exam: Present: normal lung sounds bilaterally. Absent: respiratory distress, accessory muscle use - Cardiovascular Cardiovascular Exam: Present: tachycardia, irregular rhythm, other (Atrial fibrillation with RVR) - GI/Abdominal GI/Abdominal exam: Present: soft, normal bowel sounds. Absent: distended, tenderness - Extremities Exam Extremities exam: Present: pedal edema (+2 bilateral). Absent: tenderness - Back Exam Back exam: Absent: tenderness - Neurological Exam Neurological exam: Present: alert, oriented X3 - Psychiatric Psychiatric exam: Present: normal affect - Skin Skin exam: Present: warm, normal color ED Course Vital Signs 08/16/21 15:04 Temperature 100.6 F H Pulse Rate 120 H Respiratory 18 Rate Blood Pressure 190/90 [Left] O2 Sat by Pulse 97 Oximetry - Reevaluation(s) Reevaluation #1: 08/16/21 16:03 There with palpitation has been going on for the last 2 weeks associated with shortness of breath--patient with history of atrial fibrillation and has not been compliant with medication the last 2 weeks--this might be the issue that caused the exacerbation of atrial fibrillation with RVR--even though this is likely the culprit but could not rule out pneumonia, myocardial infarction, pulmonary embolism, COPD exacerbation, systemic section such as urosepsis considering is fever--as patient could be septic-- so will start septic workup including aggressive iv hydration, with vancomycin and zosyn prophylactic and ordered cardiopulmonary workup -- including troponin and eKG with CXR-- In the meantime given Cardizem as rate control and amiodarone to protect cardiac muscle-- Reevaluation #2: 08/16/21 17:52 Chest x-ray noted with no acute finding except bibasilar atelectasis with no acute cardiopulmonary findings noted-- 08/16/21 20:24 Pt reports feeling much better--and her bedside nurse was able to get this patient home medication that will be refilled and d/c home to close follow up with his PCP 08/16/21 20:41 08/16/21 21:28 As I was getting ready to discharge patient home without the medication reordered--his O2 level discontinued and noticed to decrease to 88% without the use of oxygen at home--part of this patient problem is likely COPD exacerbation so we will go ahead and give 125 mg of Solu-Medrol and DuoNeb and recheck for likely admission for acute exacerbation of chronic A. fib and COPD exacerbation. Reevaluation #3: 08/16/21 21:55 Dr Camarillo consulted who accept pt for further evaluation and treatment ED Medical Decision Making - Lab Data Result diagrams: 08/16/21 16:18 08/16/21 16:18 - EKG Data -: EKG Interpreted by Me Rate: tachycardia (Atrial fibrillation with RVR at a rate of 144 bpm) - EKG Data 08/16/21 17:51 Atrial fibrillation with RVR at a rate of 144 bpm - Medical Decision Making See progress note for detail - Differential Diagnosis See progress note for detail Critical Care Time: Yes (60) Critical care time in (mins) excluding proc time.: 60 Critical care attestation.: If time is entered above; I have spent that time in minutes in the direct care of this critically ill patient, excluding procedure time. This patient presents with shortness of breath and noted with atrial fibrillation with RVR and due to high probability of clinically significant, life threatening deterioration, this patient required my highest level of preparedness to intervene emergently and I personally spent this critical care time directly and personally managing this patient. This critical care time included obtaining a history; examining this patient; pulse oximetry ; ordering and review of studies ; arranging urgent treatment with development of a management plan ; evaluation of patient's response to treatment ; frequent reassessment ; and, discussion with other providers. This critical care time was performed to assess and manage the high probability of imminent, life-threa tening deterioration that could result in multiple organ damage if not done in a timely fashion. ED Disposition Clinical Impression: COPD with exacerbation Atrial fibrillation Qualifiers: Atrial fibrillation type: unspecified Qualified Code(s): I48.91 - Unspecified atrial fibrillation Dyspnea Qualifiers: Dyspnea type: unspecified Qualified Code(s): R06.00 - Dyspnea, unspecified Disposition: ADMITTED INPATIENT Is pt being admited?: Yes Does the pt Need Aspirin: No Condition: Stable Instructions: Shortness of Breath, Adult, [id number], Atrial Fibrillation, [id number], Preventing Atrial Fibrillation-Related Stroke, Chronic Obstructive Pulmonary Disease (ED) Additional Instructions: Is very important that you start taking your medication as prescribed by your primary doctor Your medication is refilled for you today for the next 30 days to give you room to call and schedule follow-up with your primary doctor in the next 3 to 5 days for progress Please do not hesitate to call or return to emergency room if your symptoms worsen Prescriptions: Benztropine [Cogentin] 0.5 mg PO HS #30 tablet dexAMETHasone [Decadron] 4 mg PO BID 5 Days #10 tablet Metoprolol Xl [Metoprolol SUCCINATE ER TAB] 50 mg PO QDAY #30 tablet Albuterol Mdi (or & Nicu Only) [ProAir HFA Inhaler] 2 puff IH QID PRN #8.5 gram PRN Reason: Shortness Of Breath OLANzapine [ZyPREXA] 5 mg PO HS #30 tablet Referrals: PRIMARY CARE,MD [Primary Care Provider] - 3-5 Days Time of Disposition: 21:55 (Dr Camarillo consulted who accept pt)
[2021-08-16] MEDS ORDERED: AMIODARONE 150 MG/100 ML-ED 150 MG/100 ML BAG IV ONE (16:09)
[2021-08-16] MEDS ORDERED: dilTIAZem 25 MG/5 ML INJ IV ONE (16:09)
--- NOTE | 2021-08-16 16:30 | XRay Report ---
CHEST 1 VIEW 08/16/2021 3:17 PM INDICATION / CLINICAL INFORMATION: Dyspnea. COMPARISON: 2 views of the chest from 07/23/2021. FINDINGS: SUPPORT DEVICES: None. HEART / MEDIASTINUM: No significant abnormality. LUNGS / PLEURA: Reduced lung volumes are noted with probable bibasilar atelectasis. The lungs are oth erwise clear. No significant pleural effusion. No pneumothorax. ADDITIONAL FINDINGS: No significant additional findings. IMPRESSION: Probable bibasilar atelectasis without other acute findings. Signer Name: London Martinez MD Signed: 08/16/2021 4:23 PM Workstation Name: [id number]
[2021-08-16 16:56] LABS: Basophils % (Auto) 0.3 % (0.0-1.8); Hematocrit 42.6 % (35.5-45.6); Hemoglobin 13.6 gm/dl (11.8-15.2); Lymphocytes # (Auto) 1.4 K/mm3 (1.2-5.4); Lymphocytes % (Auto) 11.1 % (13.4-35.0); Mean Corpuscular HGB Conc 32 % (32-34); Mean Corpuscular Volume 92 fl (84-94); Platelet Count 285 K/mm3 (140-440); Red Blood Count 4.62 M/mm3 (3.65-5.03); Red Cell Distribution Width 14.4 % (13.2-15.2)
[2021-08-16 17:15] LABS: Alanine Aminotransferase 13 units/L (7-56); Albumin 3.6 g/dL (3.9-5); BUN/Creatinine Ratio 7; Blood Urea Nitrogen 7 mg/dL (9-20); Calcium 8.4 mg/dL (8.4-10.2); Hemolysis Index 13
[2021-08-16] MEDS ORDERED: DEXTROSE 50% IN WATER (25GM) 50 ML SYRINGE IV PRN (22:12)
[2021-08-16] MEDS ORDERED: ALBUTEROL 2.5 MG/3 ML NEBU IH PRN (22:12)
[2021-08-16] MEDS ORDERED: MORPHINE 2 MG/1 ML INJ IV PRN (22:12)
[2021-08-16] MEDS ORDERED: ACETAMINOPHEN 325 MG TAB PO PRN (22:12)
[2021-08-16] MEDS ORDERED: ONDANSETRON 4 MG/2 ML INJ IV PRN (22:12)
[2021-08-16] MEDS ORDERED: MORPHINE 4 MG/1 ML INJ IV PRN (22:12)
--- NOTE | 2021-08-16 22:22 | History and Physical Report ---
History of Present Illness Date of examination: 08/16/21 Date of admission: 08/16/21 Chief complaint: Dyspnea Respiratory distress History of present illness: 73-year-old male with a history of schizophrenia, atrial fibrillation, hypertension, diabetes and COPD currently smoking about a pack a day who now presents with shortness of breath that is going on for the last 2 weeks progressively getting worse. Patient reported that he has not taken any of his medication including antihypertensive and rhythm control medication for the last 4 weeks because [place] Patient denies any chest pain. Patient also reports some fever but no chills. Patient denies any urinary symptoms. Walking from room to room worsen dyspnea. In the emergency room patient is found to have A. fib with RVR. Patient was given Cardizem as a rate control and amiodarone . Patient heart rate is better now around 120/min. So going to admit the patient I put the patient on COPD pathway also put on Cardizem Past History Past Medical History: acute [facility], atrial fib, diabetes, hypertension, renal failure, other (Schizophrenia, pneumonia, kidney problem, A. fib) Past Surgical History: Other (hernia removal 2010, "surgery for colon cancer") Social history: no significant social history Family history: hypertension Medications and Allergies Allergies Allergy/AdvReac Type Severity Reaction Status Date / Time No Known Allergies Allergy Verified 08/16/21 21:32 Home Medications Medication Instructions Recorded Confirmed Last Taken Type Azithromycin 500 mg PO DAILY #5 07/23/21 Unknown Rx Albuterol Mdi (or & Nicu Only) 2 puff IH QID PRN #8.5 gram 08/16/21 Unknown Rx [ProAir HFA Inhaler] Benztropine [Cogentin] 0.5 mg PO HS #30 tablet 08/16/21 Unknown Rx Metoprolol Xl [Metoprolol 50 mg PO QDAY #30 tablet 08/16/21 Unknown Rx SUCCINATE ER TAB] OLANzapine [ZyPREXA] 5 mg PO HS #30 tablet 08/16/21 Unknown Rx dexAMETHasone [Decadron] 4 mg PO BID 5 Days #10 tablet 08/16/21 Unknown Rx Active Meds: Active Medications Acetaminophen (Acetaminophen 325 Mg Tab) 650 mg PO Q4H PRN PRN Reason: Pain MILD(1-3)/Fever >100.5/ANDREWS Albuterol (Albuterol 2.5 Mg/3 Ml Nebu) 2.5 mg IH Q3HRT PRN PRN Reason: Shortness Of Breath Albuterol/Ipratropium (Ipratropium/Albuterol Sulfate 3 Ml Ampul.Neb) 1 ampul IH ONCE ONE Stop: 08/16/21 21:31 Dextrose (Dextrose 50% In Water (25gm) 50 Ml Syringe) 50 ml IV Q30MIN PRN; Protocol PRN Reason: Hypoglycemia Diltiazem HCl (Diltiazem 30 Mg Tab) 30 mg PO Q6HR XAVIER Famotidine (Famotidine 20 Mg Tab) 20 mg PO BID XAVIER Heparin Sodium (Porcine) (Heparin 5,000 Unit/1 Ml Vial) 5,000 unit SUB-Q Q12HR XAVIER Methylprednisolone Sodium Succinate (Methylprednisolone Sod Succinate 40 Mg/1 Ml Inj) 40 mg IV Q8HR XAVIER Miscellaneous Medication (Azithromycin [Azithromycin]) 500 mg PO DAILY XAVIER Montelukast Sodium (Montelukast 10 Mg Tab) 10 mg PO QHS XAVIER Morphine Sulfate (Morphine 2 Mg/1 Ml Inj) 2 mg IV Q4H PRN PRN Reason: Pain, Moderate (4-6) Morphine Sulfate (Morphine 4 Mg/1 Ml Inj) 4 mg IV Q4H PRN PRN Reason: Pain , Severe (7-10) Ondansetron HCl (Ondansetron 4 Mg/2 Ml Inj) 4 mg IV Q8H PRN PRN Reason: Nausea And Vomiting Sodium Chloride (Sodium Chloride 0.9% 10 Ml Flush Syringe) 10 ml IV BID XAVIER Sodium Chloride (Sodium Chloride 0.9% 10 Ml Flush Syringe) 10 ml IV PRN PRN PRN Reason: LINE FLUSH Review of Systems All systems: negative Cardiovascular: palpitations, rapid/irregular heart beat, shortness of breath, dyspnea on exertion Respiratory: shortness of breath, dyspnea on exertion Exam - Constitutional Vitals: Temp Pulse Resp BP Pulse Ox 100.6 F H 120 H 18 190/90 97 08/16/21 15:04 08/16/21 15:04 08/16/21 15:04 08/16/21 15:04 08/16/21 15:04 General appearance: Present: no acute distress, well-nourished - EENT Eyes: Present: PERRL ENT: hearing intact, clear oral mucosa - Neck Neck: Present: supple, normal ROM - Respiratory Respiratory effort: normal Respiratory: bilateral: diminished - Cardiovascular Heart Sounds: Present: S1 & S2. Absent: rub, click - Extremities Extremities: pulses symmetrical, No edema Peripheral Pulses: within normal limits - Abdominal General gastrointestinal: Present: soft, non-tender, non-distended, normal bowel sounds Male genitourinary: Present: normal - Integumentary Integumentary: Present: clear, warm, dry - Musculoskeletal Musculoskeletal: gait normal, strength equal bilaterally - Psychiatric Psychiatric: appropriate mood/affect, intact judgment & insight - Neurologic Neurologic: CNII-XII intact, moves all extremities Results - Labs CBC & Chem 7: 08/16/21 16:18 08/16/21 16:18 Labs: Laboratory Last Values WBC 12.8 K/mm3 (4.5-11.0) H 08/16/21 16:18 RBC 4.62 M/mm3 (3.65-5.03) 08/16/21 16:18 Hgb 13.6 gm/dl (11.8-15.2) 08/16/21 16:18 Hct 42.6 % (35.5-45.6) 08/16/21 16:18 MCV 92 fl (84-94) 08/16/21 16:18 MCH 30 pg (28-32) 08/16/21 16:18 MCHC 32 % (32-34) 08/16/21 16:18 RDW 14.4 % (13.2-15.2) 08/16/21 16:18 Plt Count 285 K/mm3 (140-440) 08/16/21 16:18 Lymph % (Auto) 11.1 % (13.4-35.0) L 08/16/21 16:18 [place] % (Auto) 8.0 % (0.0-7.3) H 08/16/21 16:18 Eos % (Auto) 0.0 % (0.0-4.3) 08/16/21 16:18 Baso % (Auto) 0.3 % (0.0-1.8) 08/16/21 16:18 Lymph # (Auto) 1.4 K/mm3 (1.2-5.4) 08/16/21 16:18 [place] # (Auto) 1.0 K/mm3 (0.0-0.8) H 08/16/21 16:18 Eos # (Auto) 0.0 K/mm3 (0.0-0.4) 08/16/21 16:18 Baso # (Auto) 0.0 K/mm3 (0.0-0.1) 08/16/21 16:18 Seg Neutrophils % 80.6 % (40.0-70.0) H 08/16/21 16:18 Seg Neutrophils # 10.3 K/mm3 (1.8-7.7) H 08/16/21 16:18 Sodium 136 mmol/L (137-145) L 08/16/21 16:18 Potassium 3.9 mmol/L (3.6-5.0) 08/16/21 16:18 Chloride 100.2 mmol/L (98-107) 08/16/21 16:18 Carbon Dioxide 23 mmol/L (22-30) 08/16/21 16:18 Anion Gap 17 mmol/L 08/16/21 16:18 BUN 7 mg/dL (9-20) L 08/16/21 16:18 Creatinine 1.0 mg/dL (0.8-1.3) 08/16/21 16:18 Estimated GFR > 60 ml/min 08/16/21 16:18 BUN/Creatinine Ratio 7 % 08/16/21 16:18 Glucose 96 mg/dL (75-100) 08/16/21 16:18 POC Glucose 142 mg/dL (70-105) H 08/16/21 19:35 Lactic Acid 1.40 mmol/L (0.7-2.0) 08/16/21 16:18 Calcium 8.4 mg/dL (8.4-10.2) 08/16/21 16:18 Total Bilirubin 0.60 mg/dL (0.1-1.2) 08/16/21 16:18 AST 13 units/L (5-40) 08/16/21 16:18 ALT 13 units/L (7-56) 08/16/21 16:18 Alkaline Phosphatase 91 units/L (35-129) 08/16/21 16:18 Total Protein 6.4 g/dL (6.3-8.2) 08/16/21 16:18 Albumin 3.6 g/dL (3.9-5) L 08/16/21 16:18 Albumin/Globulin Ratio 1.3 % 08/16/21 16:18 Microbiology: Microbiology 08/16/21 16:18 Peripheral/Venous Blood Culture - Preliminary Culture in Progress 08/16/21 16:18 Peripheral/Venous Blood Culture - Preliminary Culture in Progress - Imaging and Cardiology Chest x-ray: report reviewed Assessment and Plan VTE prophylaxis?: Chemical Plan of care discussed with patient/family: Yes - Patient Problems (1) COPD with exacerbation Current Visit: Yes Status: Acute Plan to address problem: Admit the patient to the medical telemetry. Oxygen per nasal cannula 3 to per minute. DuoNeb and nebulizer every 4 hours. Albuterol via nebulizer every 4 hours as needed. Solu-Medrol 40 mg IV every 8 hours. Zithromax to 50 mg p.o. daily. (2) Diabetes Current Visit: Yes Status: Acute Plan to address problem: Accu-Chek before meals and at bedtime with Humalog moderate dose coverage. Diabetic education (3) Atrial fibrillation Current Visit: Yes Status: Acute Qualifiers: Atrial fibrillation type: unspecified Qualified Code(s): I48.91 - Unspecified atrial fibrillation Plan to address problem: Cardizem 30 mg p.o. every 6 hours. Continue home medication. Consult cardiology if needed (4) Dyspnea Current Visit: Yes Status: Acute Qualifiers: Dyspnea type: unspecified Qualified Code(s): R06.00 - Dyspnea, unspecified Plan to address problem: Oxygen per nasal cannula 3 to per minute. DuoNeb and nebulizer every 4 hours. Albuterol via nebulizer every 4 hours as needed. Solu-Medrol 40 mg IV every 8 hours. Zithromax to 50 mg p.o. daily. (5) Hypertension Current Visit: No Status: Chronic Plan to address problem: Hydralazine 10 mg IV every 6 hours as needed. Cardizem 30 mg p.o. every 6 hours. We continue the home medication (6) Schizophrenia Current Visit: Yes Status: Acute Plan to address problem: Is stable. We will continue the home medication. Outpatient follow-up with psychiatry (7) DVT prophylaxis Current Visit: Yes Status: Acute Plan to address problem: Heparin 5000 units subcu every 12 hours for DVT prophylaxis. Pepcid 20 mg p.o. twice daily for GI prophylaxis. Patient is a full code
[2021-08-16] MEDS ORDERED: IPRATROPIUM/ALBUTEROL SULFATE 3 ML AMPUL.NEB IH ONE (22:30)
[2021-08-17] MEDS: dilTIAZem 30 MG TAB PO SCH ×2 (00:11→06:04)
[2021-08-17 04:45] LABS: Hematocrit 41.9 % (35.5-45.6); Hemoglobin 13.3 gm/dl (11.8-15.2); Mean Corpuscular HGB Conc 32 % (32-34); Mean Corpuscular Volume 93 fl (84-94); Platelet Count 261 K/mm3 (140-440); Red Blood Count 4.53 M/mm3 (3.65-5.03); Red Cell Distribution Width 14.7 % (13.2-15.2)
[2021-08-17 05:02] LABS: BUN/Creatinine Ratio 12; Blood Urea Nitrogen 12 mg/dL (9-20); Calcium 8.1 mg/dL (8.4-10.2); Hemolysis Index 8
[2021-08-17 05:59] LABS: Total Cells Counted 100
[2021-08-17 06:00] LABS: Band Neutrophils # (Manual) 0.3 K/mm3; Basophils % (Manual) 0 % (0.0-1.8); Eosinophils % (Manual) 0 % (0.0-4.3); Platelet Estimate Consistent w Auto; RBC Morphology Normal
[2021-08-17] MEDS ORDERED: methylPREDNISolone Sod Succinate 40 MG/1 ML INJ IV SCH (06:00)
[2021-08-17 06:23] LABS: Bilirubin,Urine NEG (Negative); Blood,Urine NEG (Negative); Color,Urine Yellow (Yellow); WBC,Urine < 1.0 /HPF (0.0-6.0)
[2021-08-17 06:25] LABS: RBC,Urine < 1.0 /HPF (0.0-6.0)
[2021-08-17 06:30] LABS: Amphetamine Screen,Urine Negative; Benzodiazepines Screen,Urine Negative; Cannabinoid Screen,Urine Negative; Cocaine Screen,Urine Negative; Methadone Screen,Urine Negative; Opiate Screen,Urine Negative
[2021-08-17] MEDS ORDERED: HEPARIN 5,000 UNIT/1 ML VIAL SUB-Q SCH ×2 (09:00→10:00)
[2021-08-17] MEDS ORDERED: levoFLOXacin 750 MG TAB PO SCH (09:00)
--- NOTE | 2021-08-17 09:06 | Electrocardiograph Report ---
[facility] Test Date: 2021-08-16 Test Time: 15:44:48 Pat Name: ARNULFO MARAVILLA Department: Room: A475 1 Gender: M [employer] Developer: [place] : [id number] Requested By: MARY JO BROWNLEE Order Number: [id number] Reading MD: Mirza Jaffe Measurements Intervals [place] Rate: 144 P: WI: QRS: -5 QRSD: 85 T: 72 QT: 298 QTc: 461 Interpretive Statements Atrial fibrillation ST depression, probably rate related Compared to ECG 07/23/2021 10:51:58 ST (T wave) deviation now present Sinus rhythm no longer present Atrial premature complex(es) no longer present Prolonged QT interval no longer present Electronically Signed On 08-17-2021 9:06:15 EDT by Mirza Jaffe
[2021-08-17] MEDS: METOPROLOL TARTRATE 25 MG TAB PO SCH ×2 (09:17→21:37)
[2021-08-17] MEDS: FAMOTIDINE 20 MG TAB PO SCH ×2 (09:17→21:37)
[2021-08-17] MEDS: CALCIUM CARBONATE 1250 MG TAB PO SCH (09:18)
[2021-08-17] MEDS ORDERED: levoFLOXacin 500 MG TAB PO SCH (10:00)
[2021-08-17] MEDS ORDERED: AZITHROMYCIN 250 MG TAB PO SCH (10:00)
[2021-08-17] MEDS ORDERED: predniSONE 20 MG TAB PO SCH (10:00)
--- NOTE | 2021-08-17 12:35 | Progress Note ---
Assessment and Plan Assessment and plan: #COPD exacerbationruled out Patient denies increased sputum production, change in color SpO2 goal 88 to 92% on room air #Atrial fibrillation with RVRresolved #Acute hypoxic respiratory failureimproving - etiology: Secondary to A. fib with RVR - baseline oxygen requirements: Room air - supplemental oxygen: 2 L nasal cannula Transition p.o. Cardizem 30 mg every 6 hours to metoprolol tartrate 25 mg twice daily. Patient endorses taking Xarelto at home for anticoagulation in the setting of A. fib; however, the patient does not have the financial ability to continue this medication. Initiating warfarin with heparin bridge. INR goal 23. Discontinue steroids, azithromycin, and Rocephin. - Continue protocol: continue pulse oximetry, wean oxygen as tolerated, ordered incentive spirometry and educated patient on how to use it and its importance. - continue to monitor #Hypertension - home medications: Metoprolol succinate 50 mg daily - current medications: Currently holding as the patient is normotensive - SBP goal <160 and DBP goal <90 while inpatient - continue to monitor #Schizophrenia Patient unable to provide name of medication. Psychiatry will be consulted. #Hypocalcemia Calcium 8.1 Repleted. Continue to monitor. #Mild protein caloric malnutrition Albumin 3.6 Starting dietary supplementation. #Unsheltered homelessness Case management consulted with assistance of finding a half-way for the patient upon discharge. Case management expresses understanding. #Tobacco dependence #Tobacco/Smoking cessation counseling - Counseled patient about the importance of smoking cessation and the possible sequelae as a result of continued tobacco consumption. The patient expresses understanding. -Time: +15 mins #Advanced care planning -Disease education conducted, care plan discussed, diagnoses discussed, prognosis discussed, and patient acknowledges understanding with care plan -Time: +30 min #Discharge planning - Patient is pending resolution of respiratory failure and INR of 23. - Case management has been made aware. Disposition Plan: Continue medical management Total Time Spent with Patient (Minutes): 45 minutes History Interval history: No acute events overnight. Hospitalist Physical - Constitutional Vitals: Temp Pulse Resp BP Pulse Ox 97.8 F 63 20 106/68 98 08/17/21 07:25 08/17/21 09:17 08/17/21 07:25 08/17/21 09:17 08/17/21 11:04 General appearance: Present: no acute distress, well-nourished - EENT Eyes: Present: PERRL, EOM intact ENT: hearing intact, clear oral mucosa, dentition normal - Neck Neck: Present: supple, normal ROM - Respiratory Respiratory effort: normal Respiratory: bilateral: diminished (2L nasal cannula) - Cardiovascular Rhythm: irregularly irregular Heart Sounds: Present: S1 & S2 - Extremities Extremities: no ischemia, pulses intact, pulses symmetrical, No edema, normal temperature, normal color Peripheral Pulses: within normal limits - Abdominal General gastrointestinal: soft, non-tender, non-distended, normal bowel sounds - Integumentary Integumentary: Present: clear, warm, dry - Psychiatric Psychiatric: appropriate mood/affect, memory intact, cooperative - Neurologic Neurologic: CNII-XII intact, moves all extremities - Allied Health Allied health notes reviewed: nursing Results - Labs CBC & Chem 7: 08/17/21 04:13 08/17/21 04:13 Labs: Laboratory Last Values WBC 13.8 K/mm3 (4.5-11.0) H 08/17/21 04:13 RBC 4.53 M/mm3 (3.65-5.03) 08/17/21 04:13 Hgb 13.3 gm/dl (11.8-15.2) 08/17/21 04:13 Hct 41.9 % (35.5-45.6) 08/17/21 04:13 MCV 93 fl (84-94) 08/17/21 04:13 MCH 29 pg (28-32) 08/17/21 04:13 MCHC 32 % (32-34) 08/17/21 04:13 RDW 14.7 % (13.2-15.2) 08/17/21 04:13 Plt Count 261 K/mm3 (140-440) 08/17/21 04:13 Lymph % (Auto) 11.1 % (13.4-35.0) L 08/16/21 16:18 Motley % (Auto) 8.0 % (0.0-7.3) H 08/16/21 16:18 Eos % (Auto) 0.0 % (0.0-4.3) 08/16/21 16:18 Baso % (Auto) 0.3 % (0.0-1.8) 08/16/21 16:18 Lymph # (Auto) 1.4 K/mm3 (1.2-5.4) 08/16/21 16:18 [place]ley # (Auto) 1.0 K/mm3 (0.0-0.8) H 08/16/21 16:18 Eos # (Auto) 0.0 K/mm3 (0.0-0.4) 08/16/21 16:18 Baso # (Auto) 0.0 K/mm3 (0.0-0.1) 08/16/21 16:18 Add Manual Diff Complete 08/17/21 04:13 Total Counted 100 08/17/21 04:13 Seg Neutrophils % Ultrasonic Tester 08/17/21 04:13 Seg Neuts % (Manual) 89.0 % (40.0-70.0) H 08/17/21 04:13 Band Neutrophils % 2.0 % 08/17/21 04:13 Lymphocytes % (Manual) 5.0 % (13.4-35.0) L 08/17/21 04:13 Reactive Lymphs % (Man) 0 % 08/17/21 04:13 Monocytes % (Manual) 4.0 % (0.0-7.3) 08/17/21 04:13 Eosinophils % (Manual) 0 % (0.0-4.3) 08/17/21 04:13 Basophils % (Manual) 0 % (0.0-1.8) 08/17/21 04:13 Metamyelocytes % 0 % 08/17/21 04:13 Myelocytes % 0 % 08/17/21 04:13 Promyelocytes % 0 % 08/17/21 04:13 Blast Cells % 0 % 08/17/21 04:13 Nucleated RBC % Not Reportable 08/17/21 04:13 Seg Neutrophils # 10.3 K/mm3 (1.8-7.7) H 08/16/21 16:18 Seg Neutrophils # Man 12.3 K/mm3 (1.8-7.7) H 08/17/21 04:13 Band Neutrophils # 0.3 K/mm3 08/17/21 04:13 Lymphocytes # (Manual) 0.7 K/mm3 (1.2-5.4) L 08/17/21 04:13 Abs React Lymphs (Man) 0.0 K/mm3 08/17/21 04:13 Monocytes # (Manual) 0.6 K/mm3 (0.0-0.8) 08/17/21 04:13 Eosinophils # (Manual) 0.0 K/mm3 (0.0-0.4) 08/17/21 04:13 Basophils # (Manual) 0.0 K/mm3 (0.0-0.1) 08/17/21 04:13 Metamyelocytes # 0.0 K/mm3 08/17/21 04:13 Myelocytes # 0.0 K/mm3 08/17/21 04:13 Promyelocytes # 0.0 K/mm3 08/17/21 04:13 Blast Cells # 0.0 K/mm3 08/17/21 04:13 WBC Morphology Not Reportable 08/17/21 04:13 Hypersegmented Neuts Not Reportable 08/17/21 04:13 Hyposegmented Neuts Not Reportable 08/17/21 04:13 Hypogranular Neuts Not Reportable 08/17/21 04:13 Smudge Cells Not Reportable 08/17/21 04:13 Toxic Granulation Not Reportable 08/17/21 04:13 Toxic Vacuolation Not Reportable 08/17/21 04:13 Dohle Bodies Not Reportable 08/17/21 04:13 Pelger-Huet Anomaly Not Reportable 08/17/21 04:13 Nereyda Rods Not Reportable 08/17/21 04:13 Platelet Estimate Consistent w auto 08/17/21 04:13 Clumped Platelets Not Reportable 08/17/21 04:13 Plt Clumps, EDTA Not Reportable 08/17/21 04:13 Large Platelets Not Reportable 08/17/21 04:13 Giant Platelets Not Reportable 08/17/21 04:13 Platelet Satelliting Not Reportable 08/17/21 04:13 Plt Morphology Comment Not Reportable 08/17/21 04:13 RBC Morphology Normal 08/17/21 04:13 Dimorphic RBCs Not Reportable 08/17/21 04:13 Polychromasia Not Reportable 08/17/21 04:13 Hypochromasia Not Reportable 08/17/21 04:13 Poikilocytosis Not Reportable 08/17/21 04:13 Anisocytosis Not Reportable 08/17/21 04:13 Microcytosis Not Reportable 08/17/21 04:13 Macrocytosis Not Reportable 08/17/21 04:13 Spherocytes Not Reportable 08/17/21 04:13 Pappenheimer Bodies Not Reportable 08/17/21 04:13 Sickle Cells Not Reportable 08/17/21 04:13 Target Cells Not Reportable 08/17/21 04:13 Tear Drop Cells Not Reportable 08/17/21 04:13 Ovalocytes Not Reportable 08/17/21 04:13 Helmet Cells Not Reportable 08/17/21 04:13 [place] Bodies Not Reportable 08/17/21 04:13 [place] Rings Not Reportable 08/17/21 04:13 [place] Cells Not Reportable 08/17/21 04:13 Bite Cells Not Reportable 08/17/21 04:13 Crenated Cell Not Reportable 08/17/21 04:13 Elliptocytes Not Reportable 08/17/21 04:13 Acanthocytes (Spur) Not Reportable 08/17/21 04:13 Rouleaux Not Reportable 08/17/21 04:13 Hemoglobin C Crystals Not Reportable 08/17/21 04:13 Schistocytes Not Reportable 08/17/21 04:13 Malaria parasites Not Reportable 08/17/21 04:13 [place] Bodies Not Reportable 08/17/21 04:13 Hem Pathologist Commnt No 08/17/21 04:13 Sodium 137 mmol/L (137-145) 08/17/21 04:13 Potassium 3.9 mmol/L (3.6-5.0) 08/17/21 04:13 Chloride 101.2 mmol/L (98-107) 08/17/21 04:13 Carbon Dioxide 22 mmol/L (22-30) 08/17/21 04:13 Anion Gap 18 mmol/L 08/17/21 04:13 BUN 12 mg/dL (9-20) 08/17/21 04:13 Creatinine 1.0 mg/dL (0.8-1.3) 08/17/21 04:13 Estimated GFR > 60 ml/min 08/17/21 04:13 BUN/Creatinine Ratio 12 % 08/17/21 04:13 Glucose 246 mg/dL (75-100) H 08/17/21 04:13 POC Glucose 142 mg/dL (70-105) H 08/16/21 19:35 Lactic Acid 1.40 mmol/L (0.7-2.0) 08/16/21 16:18 Calcium 8.1 mg/dL (8.4-10.2) L 08/17/21 04:13 Total Bilirubin 0.60 mg/dL (0.1-1.2) 08/16/21 16:18 AST 13 units/L (5-40) 08/16/21 16:18 ALT 13 units/L (7-56) 08/16/21 16:18 Alkaline Phosphatase 91 units/L (35-129) 08/16/21 16:18 Total Protein 6.4 g/dL (6.3-8.2) 08/16/21 16:18 Albumin 3.6 g/dL (3.9-5) L 08/16/21 16:18 Albumin/Globulin Ratio 1.3 % 08/16/21 16:18 Urine Color Yellow (Yellow) 08/17/21 Unknown Urine Turbidity Cloudy (Clear) 08/17/21 Unknown Urine pH 6.0 (5.0-7.0) 08/17/21 Unknown Ur Specific [place] 1.017 (1.003-1.030) 08/17/21 Unknown Urine Protein 30 mg/dl mg/dL (Negative) 08/17/21 Unknown Urine Glucose (UA) >=500 mg/dL (Negative) 08/17/21 Unknown Urine Ketones Neg mg/dL (Negative) 08/17/21 Unknown Urine Blood Neg (Negative) 08/17/21 Unknown Urine Nitrite Neg (Negative) 08/17/21 Unknown Urine Bilirubin Neg (Negative) 08/17/21 Unknown Urine Urobilinogen 4.0 mg/dL (<2.0) 08/17/21 Unknown Ur Leukocyte Esterase Lg (Negative) 08/17/21 Unknown Urine WBC (Auto) < 1.0 /HPF (0.0-6.0) 08/17/21 Unknown Urine RBC (Auto) < 1.0 /HPF (0.0-6.0) 08/17/21 Unknown Urine Opiates Screen Negative 08/17/21 Unknown Urine Methadone Screen Negative 08/17/21 Unknown Ur Barbiturates Screen Negative 08/17/21 Unknown Ur Phencyclidine Scrn Negative 08/17/21 Unknown Ur Amphetamines Screen Negative 08/17/21 Unknown U Benzodiazepines Scrn Negative 08/17/21 Unknown Urine Cocaine Screen Negative 08/17/21 Unknown U Marijuana (THC) Screen Negative 08/17/21 Unknown Drugs of Abuse Note Disclamer 08/17/21 Unknown Microbiology: Microbiology 08/16/21 16:18 Peripheral/Venous Blood Culture - Preliminary Culture in Progress 08/16/21 16:18 Peripheral/Venous Blood Culture - Preliminary Culture in Progress Burns/IV: Voiding Method Toilet Active Medications - Current Medications Current Medications: Generic Name Dose Route Start Last Admin Trade Name Freq PRN Reason Stop Dose Admin Acetaminophen 650 mg 08/16/21 22:12 Acetaminophen 325 Mg Tab PO Q4H PRN Pain MILD(1-3)/Fever >100.5/ANDREWS Albuterol 2.5 mg 08/16/21 22:12 Albuterol 2.5 Mg/3 Ml Nebu IH Q3HRT PRN Shortness Of Breath Albuterol/Ipratropium 1 ampul 08/16/21 22:30 Ipratropium/Albuterol Sulfate 3 Ml Ampul.Neb IH 08/16/21 22:31 ONCE ONE Calcium Carbonate/Glycine 1,250 mg 08/17/21 10:00 08/17/21 09:18 Calcium Carbonate 1250 Mg Tab PO 1,250 mg QDAY XAVIER Administration Dextrose 0 ml 08/16/21 22:12 Dextrose 50% In Water (25gm) 50 Ml Syringe IV Q30MIN PRN Hypoglycemia Protocol Famotidine 20 mg 08/17/21 10:00 08/17/21 09:17 Famotidine 20 Mg Tab PO 20 mg BID XAVIER Administration Heparin Sodium (Porcine) 5,000 unit 08/17/21 09:00 08/17/21 09:18 Heparin 5,000 Unit/1 Ml Vial SUB-Q 5,000 unit Q8H XAVIER Administration Levofloxacin 750 mg 08/17/21 09:00 08/17/21 09:23 Levofloxacin 750 Mg Tab PO 08/20/21 09:01 750 mg Q24H XAVIER Administration Metoprolol Tartrate 25 mg 08/17/21 10:00 08/17/21 09:17 Metoprolol Tartrate 25 Mg Tab PO 25 mg BID XAVIER Administration Montelukast Sodium 10 mg 08/17/21 22:00 Montelukast 10 Mg Tab PO QHS XAVIER Morphine Sulfate 2 mg 08/16/21 22:12 Morphine 2 Mg/1 Ml Inj IV Q4H PRN Pain, Moderate (4-6) Morphine Sulfate 4 mg 08/16/21 22:12 Morphine 4 Mg/1 Ml Inj IV Q4H PRN Pain , Severe (7-10) Ondansetron HCl 4 mg 08/16/21 22:12 Ondansetron 4 Mg/2 Ml Inj IV Q8H PRN Nausea And Vomiting Prednisone 40 mg 08/18/21 10:00 Prednisone 20 Mg Tab PO QDAY XAVIER Sodium Chloride 10 ml 08/17/21 10:00 Sodium Chloride 0.9% 10 Ml Flush Syringe IV BID XAVIER Sodium Chloride 10 ml 08/16/21 22:12 Sodium Chloride 0.9% 10 Ml Flush Syringe IV PRN PRN LINE FLUSH
[2021-08-17] MEDS ORDERED: HEPARIN 10,000 UNITS/10 ML VIAL IV SCH (13:30)
[2021-08-17] MEDS: HEPARIN/ 0.45% NACL DRIP 25,000 UNIT/500 ML BAG IV SCH (14:01)
[2021-08-17] MEDS ORDERED: HEPARIN 10,000 UNITS/10 ML VIAL IV PRN (16:00)
[2021-08-17 18:25] LABS: INR 1.04 (0.87-1.13)
[2021-08-17] MEDS ORDERED: WARFARIN 5 MG TAB PO SCH (19:00)
[2021-08-17] MEDS: MONTELUKAST 10 MG TAB PO SCH (21:37)
[2021-08-17] MEDS: INSULIN LISPRO 100 UNIT/ML SUB-Q SCH (21:37)
[2021-08-18 05:26] LABS: Basophils # (Auto) 0.1 K/mm3 (0.0-0.1); Basophils % (Auto) 0.5 % (0.0-1.8); Eosinophils % (Auto) 0.1 % (0.0-4.3); Hematocrit 40.7 % (35.5-45.6); Hemoglobin 12.8 gm/dl (11.8-15.2); Lymphocytes # (Auto) 1.4 K/mm3 (1.2-5.4); Lymphocytes % (Auto) 8.2 % (13.4-35.0); Mean Corpuscular HGB Conc 32 % (32-34); Mean Corpuscular Volume 93 fl (84-94); Monocytes # (Auto) 0.9 K/mm3 (0.0-0.8); Monocytes % (Auto) 5.5 % (0.0-7.3); Platelet Count 242 K/mm3 (140-440); Red Blood Count 4.38 M/mm3 (3.65-5.03); Red Cell Distribution Width 15.1 % (13.2-15.2)
[2021-08-18 05:39] LABS: INR 1.03 (0.87-1.13)
[2021-08-18 05:45] LABS: BUN/Creatinine Ratio 21; Blood Urea Nitrogen 17 mg/dL (9-20); Calcium 8.3 mg/dL (8.4-10.2); Hemolysis Index 50
[2021-08-18] MEDS: HEPARIN/ 0.45% NACL DRIP 25,000 UNIT/500 ML BAG IV SCH (07:09)
[2021-08-18] MEDS: INSULIN LISPRO 100 UNIT/ML SUB-Q SCH ×4 (07:38→21:23)
[2021-08-18] MEDS ORDERED: predniSONE 20 MG TAB PO SCH (10:00)
[2021-08-18] MEDS: METOPROLOL TARTRATE 25 MG TAB PO SCH ×2 (10:38→21:23)
[2021-08-18] MEDS: CALCIUM CARBONATE 1250 MG TAB PO SCH (10:38)
[2021-08-18] MEDS: FAMOTIDINE 20 MG TAB PO SCH ×2 (10:38→21:23)
--- NOTE | 2021-08-18 13:00 | Consultation ---
History of Present Illness - Reason for Consult Consult date: 08/18/21 Reason for consult: Medication management- schizophrenia - Chief Complaint Chief complaint: Dyspnea Respiratory distress - History of Present Psychiatric Illness The patient is a 76 year old with history of paranoid schizophrenia consulted for medication management. The patient was seen today. He is calm, alert , appropriate affect and oriented x3. The patient states that he was a of [place] war, and receives a monthly disability check. He reports ongoing homeless "on and off for several years, when my disability runs out I become homeless." He reports getting his monthly Haldol Dec IM INJ from the [place] last month, he is unable to state the exact date he received his med. He reports feeling sad about his current financial situation. The patient denies any current suicidal/homicidal ideation but reports having intermittent auditory hallucinations. PAST PSYCHIATRIC HISTORY: Diagnoses: Paranoid schizophrenia Suicide attempts or Self-harm behavior:Denies Prior psychiatric hospitalizations: Yes Substance Abuse history: Denies Previous psychiatric medications tried:Haldol Dec Outpatient treatment:Unknown PAST MEDICAL HISTORY: None reported or document Family Psychiatric History: None reported or documented SOCIAL HISTORY Marital Status: Living Arrangements: Homeless Employment Status:Retired Access to guns/weapons: Denies Education:12th grade History of Abuse: Denies Legal History: Denies REVIEW OF SYSTEMS Constitutional: Negative for weight loss ENT: Negative for stridor Respiratory: Negative for cough or hemoptysis All other systems reviewed and are negative MENTAL STATUS EXAMINATION General Appearance and Behavior: Age appropriate, wearing appropriate clothes, cooperative, polite with questioning, good eye contact, calm, polite Cooperation: cooperative Psychomotor Behavior: Psychomotor normal Mood:calm Affect and affective range: Congruent with stated mood Thought Process: Goal directed Thought Content:Reality oriented Speech: Normal volume, Regular rate and rhythm Suicidal Ideation:Denies Homicidal Ideation: Denies Hallucination: intermittent Delusions: None Impulse Control: limited Insight and Judgment: Good Insight and judgment Memory: intact Attention: attentive Orientation: Alert and oriented Diagnoses: Hx of Schizophrenia Treatment Plan Case management Continue home meds Start Haldol 5mg po QHS Cogentin 0.5mg po QHS PSYCHOTHERAPY: Supportive psychotherapy provided MEDICAL: Per primary team DELIRIUM PRECAUTIONS: Please re-orient patient frequently, keep lights on during the day, and minimize benzodiazepines and opiates as these medications could worsen patient's confusion. CLINICAL NUTRITIONIST: Per medical team DISPOSITION: Do not recommend acute psychiatric inpatient treatment. Will follow for medication management. Thank you for the consult. Case staffed with Dr. Cruz Medications and Allergies Medications and Allergies Allergies Allergy/AdvReac Type Severity Reaction Status Date / Time No Known Allergies Allergy Verified 08/16/21 21:32 Home Medications Medication Instructions Recorded Confirmed Last Taken Type Azithromycin 500 mg PO DAILY #5 07/23/21 Unknown Rx Albuterol Mdi (or & Nicu Only) 2 puff IH QID PRN #8.5 gram 08/16/21 Unknown Rx [ProAir HFA Inhaler] Benztropine [Cogentin] 0.5 mg PO HS #30 tablet 08/16/21 Unknown Rx Metoprolol Xl [Metoprolol 50 mg PO QDAY #30 tablet 08/16/21 Unknown Rx SUCCINATE ER TAB] OLANzapine [ZyPREXA] 5 mg PO HS #30 tablet 08/16/21 Unknown Rx dexAMETHasone [Decadron] 4 mg PO BID 5 Days #10 tablet 08/16/21 Unknown Rx Active Meds: Active Medications Acetaminophen (Acetaminophen 325 Mg Tab) 650 mg PO Q4H PRN PRN Reason: Pain MILD(1-3)/Fever >100.5/ANDREWS Albuterol (Albuterol 2.5 Mg/3 Ml Nebu) 2.5 mg IH Q3HRT PRN PRN Reason: Shortness Of Breath Calcium Carbonate/Glycine (Calcium Carbonate 1250 Mg Tab) 1,250 mg PO QDAY [facility] Last Admin: 08/18/21 10:38 Dose: 1,250 mg Dextrose (Dextrose 50% In Water (25gm) 50 Ml Syringe) 0 ml IV Q30MIN PRN; Protocol PRN Reason: Hypoglycemia Famotidine (Famotidine 20 Mg Tab) 20 mg PO BID [facility] Last Admin: 08/18/21 10:38 Dose: 20 mg Heparin Sodium (Porcine) (Heparin 10,000 Units/10 Ml Vial) 3,600 unit IV Q6H PRN PRN Reason: Anti-Xa Assay < 0.1 units/ml Heparin Sodium/Sodium Chloride (Heparin/ 0.45% Nacl-25,000 Unit/500 Ml) 25,000 unit in 500 mls @ 27 mls/hr IV TITR [facility]; Protocol Last Admin: 08/18/21 07:09 Dose: 1,350 units/hr, 27 mls/hr Insulin Human Lispro (Insulin Lispro 100 Unit/Ml) 0 unit SUB-Q ACHS [facility]; Protocol Last Admin: 08/18/21 07:38 Dose: Not Given Metoprolol Tartrate (Metoprolol Tartrate 25 Mg Tab) 12.5 mg PO BID [facility] Last Admin: 08/18/21 10:38 Dose: 12.5 mg Montelukast Sodium (Montelukast 10 Mg Tab) 10 mg PO QHS [facility] Last Admin: 08/17/21 21:37 Dose: 10 mg Morphine Sulfate (Morphine 2 Mg/1 Ml Inj) 2 mg IV Q4H PRN PRN Reason: Pain, Moderate (4-6) Morphine Sulfate (Morphine 4 Mg/1 Ml Inj) 4 mg IV Q4H PRN PRN Reason: Pain , Severe (7-10) Ondansetron HCl (Ondansetron 4 Mg/2 Ml Inj) 4 mg IV Q8H PRN PRN Reason: Nausea And Vomiting Sodium Chloride (Sodium Chloride 0.9% 10 Ml Flush Syringe) 10 ml IV BID [facility] Last Admin: 08/18/21 10:39 Dose: 10 ml Sodium Chloride (Sodium Chloride 0.9% 10 Ml Flush Syringe) 10 ml IV PRN PRN PRN Reason: LINE FLUSH Warfarin Sodium (Warfarin 7.5 Mg Tab) 7.5 mg PO DAILY@1700 NR Stop: 08/19/21 16:59 Mental Status Exam - Vital signs Last Vital Signs Temp 97.7 F 08/18/21 08:00 Pulse 65 08/18/21 08:00 Resp 18 08/18/21 08:00 BP 134/74 08/18/21 08:00 Pulse Ox 91 08/18/21 08:36 Results Result Diagrams: 08/18/21 04:30 08/18/21 04:30 Abnormal lab results 08/17/21 08/17/21 08/18/21 Range/Units 18:50 20:58 04:30 WBC 17.0 H (4.5-11.0) K/mm3 Lymph % (Auto) 8.2 L (13.4-35.0) % [place] # (Auto) 0.9 H (0.0-0.8) K/mm3 Seg Neutrophils % 85.7 H (40.0-70.0) % Seg Neutrophils # 14.6 H (1.8-7.7) K/mm3 Chloride (98-107) mmol/L Glucose (75-100) mg/dL POC Glucose 149 H 152 H (70-105) mg/dL Calcium (8.4-10.2) mg/dL 08/18/21 08/18/21 Range/Units 04:30 07:59 WBC (4.5-11.0) K/mm3 Lymph % (Auto) (13.4-35.0) % [place] # (Auto) (0.0-0.8) K/mm3 Seg Neutrophils % (40.0-70.0) % Seg Neutrophils # (1.8-7.7) K/mm3 Chloride 108.0 H (98-107) mmol/L Glucose 145 H (75-100) mg/dL POC Glucose 130 H (70-105) mg/dL Calcium 8.3 L (8.4-10.2) mg/dL All other labs normal.
--- NOTE | 2021-08-18 13:00 | Progress Note ---
Assessment and Plan Assessment and plan: #COPD exacerbationruled out Patient denies increased sputum production, change in color SpO2 goal 88 to 92% on room air #Atrial fibrillation with RVRresolved #Acute hypoxic respiratory failureimproving - etiology: Secondary to A. fib with RVR - baseline oxygen requirements: Room air - supplemental oxygen: 2 L nasal cannula Transition p.o. Cardizem 30 mg every 6 hours to metoprolol tartrate 25 mg twice daily. Patient endorses taking Xarelto at home for anticoagulation in the setting of A. fib; however, the patient does not have the financial ability to continue this medication. Initiating warfarin with heparin bridge. INR goal 23. INR: 1.0--> 1.03 Discontinue steroids, azithromycin, and Rocephin. - Continue protocol: continue pulse oximetry, wean oxygen as tolerated, ordered incentive spirometry and educated patient on how to use it and its importance. - continue to monitor #Hypertension - home medications: Metoprolol succinate 50 mg daily - current medications: Currently holding as the patient is normotensive - SBP goal <160 and DBP goal <90 while inpatient - continue to monitor #Schizophrenia Patient unable to provide name of medication. Psychiatry consulted; pending recs. #Hypocalcemia Calcium 8.1 Repleted. Continue to monitor. #Mild protein caloric malnutrition Albumin 3.6 Continue dietary supplementation. #Unsheltered homelessness Case management consulted with assistance of finding a [place] [facility] care facility for the patient upon discharge. Case management expresses understanding. #Tobacco dependence #Tobacco/Smoking cessation counseling - Counseled patient about the importance of smoking cessation and the possible sequelae as a result of continued tobacco consumption. The patient expresses understanding. -Time: +15 mins #Advanced care planning -Disease education conducted, care plan discussed, diagnoses discussed, prognosis discussed, and patient acknowledges understanding with care plan -Time: +30 min #Discharge planning - Patient is pending resolution of respiratory failure and INR of 23. - Case management has been made aware. Disposition Plan: Continue medical management Total Time Spent with Patient (Minutes): 30 minutes History Interval history: No acute events overnight. Hospitalist Physical - Constitutional Vitals: Temp Pulse Resp BP Pulse Ox 97.7 F 65 18 134/74 91 08/18/21 08:00 08/18/21 08:00 08/18/21 08:00 08/18/21 08:00 08/18/21 08:36 General appearance: Present: no acute distress, well-nourished - EENT Eyes: Present: PERRL, EOM intact ENT: hearing intact, clear oral mucosa, dentition normal - Neck Neck: Present: supple, normal ROM - Respiratory Respiratory effort: normal Respiratory: bilateral: CTA - Cardiovascular Rhythm: regular Heart Sounds: Present: S1 & S2 - Extremities Extremities: no ischemia, pulses intact, pulses symmetrical, No edema, normal temperature, normal color Peripheral Pulses: within normal limits - Abdominal General gastrointestinal: soft, non-tender, non-distended, normal bowel sounds - Integumentary Integumentary: Present: clear, warm, dry - Psychiatric Psychiatric: appropriate mood/affect, cooperative - Neurologic Neurologic: CNII-XII intact, moves all extremities - Allied Health Allied health notes reviewed: nursing Results - Labs CBC & Chem 7: 08/18/21 04:30 08/18/21 04:30 Labs: Laboratory Last Values WBC 17.0 K/mm3 (4.5-11.0) H 08/18/21 04:30 RBC 4.38 M/mm3 (3.65-5.03) 08/18/21 04:30 Hgb 12.8 gm/dl (11.8-15.2) 08/18/21 04:30 Hct 40.7 % (35.5-45.6) 08/18/21 04:30 MCV 93 fl (84-94) 08/18/21 04:30 MCH 29 pg (28-32) 08/18/21 04:30 MCHC 32 % (32-34) 08/18/21 04:30 RDW 15.1 % (13.2-15.2) 08/18/21 04:30 Plt Count 242 K/mm3 (140-440) 08/18/21 04:30 Lymph % (Auto) 8.2 % (13.4-35.0) L 08/18/21 04:30 [place] % (Auto) 5.5 % (0.0-7.3) 08/18/21 04:30 Eos % (Auto) 0.1 % (0.0-4.3) 08/18/21 04:30 Baso % (Auto) 0.5 % (0.0-1.8) 08/18/21 04:30 Lymph # (Auto) 1.4 K/mm3 (1.2-5.4) 08/18/21 04:30 [place] # (Auto) 0.9 K/mm3 (0.0-0.8) H 08/18/21 04:30 Eos # (Auto) 0.0 K/mm3 (0.0-0.4) 08/18/21 04:30 Baso # (Auto) 0.1 K/mm3 (0.0-0.1) 08/18/21 04:30 Add Manual Diff Complete 08/17/21 04:13 Total Counted 100 08/17/21 04:13 Seg Neutrophils % 85.7 % (40.0-70.0) H 08/18/21 04:30 Seg Neuts % (Manual) 89.0 % (40.0-70.0) H 08/17/21 04:13 Band Neutrophils % 2.0 % 08/17/21 04:13 Lymphocytes % (Manual) 5.0 % (13.4-35.0) L 08/17/21 04:13 Reactive Lymphs % (Man) 0 % 08/17/21 04:13 Monocytes % (Manual) 4.0 % (0.0-7.3) 08/17/21 04:13 Eosinophils % (Manual) 0 % (0.0-4.3) 08/17/21 04:13 Basophils % (Manual) 0 % (0.0-1.8) 08/17/21 04:13 Metamyelocytes % 0 % 08/17/21 04:13 Myelocytes % 0 % 08/17/21 04:13 Promyelocytes % 0 % 08/17/21 04:13 Blast Cells % 0 % 08/17/21 04:13 Nucleated RBC % Not Reportable 08/17/21 04:13 Seg Neutrophils # 14.6 K/mm3 (1.8-7.7) H 08/18/21 04:30 Seg Neutrophils # Man 12.3 K/mm3 (1.8-7.7) H 08/17/21 04:13 Band Neutrophils # 0.3 K/mm3 08/17/21 04:13 Lymphocytes # (Manual) 0.7 K/mm3 (1.2-5.4) L 08/17/21 04:13 Abs React Lymphs (Man) 0.0 K/mm3 08/17/21 04:13 Monocytes # (Manual) 0.6 K/mm3 (0.0-0.8) 08/17/21 04:13 Eosinophils # (Manual) 0.0 K/mm3 (0.0-0.4) 08/17/21 04:13 Basophils # (Manual) 0.0 K/mm3 (0.0-0.1) 08/17/21 04:13 Metamyelocytes # 0.0 K/mm3 08/17/21 04:13 Myelocytes # 0.0 K/mm3 08/17/21 04:13 Promyelocytes # 0.0 K/mm3 08/17/21 04:13 Blast Cells # 0.0 K/mm3 08/17/21 04:13 WBC Morphology Not Reportable 08/17/21 04:13 Hypersegmented Neuts Not Reportable 08/17/21 04:13 Hyposegmented Neuts Not Reportable 08/17/21 04:13 Hypogranular Neuts Not Reportable 08/17/21 04:13 Smudge Cells Not Reportable 08/17/21 04:13 Toxic Granulation Not Reportable 08/17/21 04:13 Toxic Vacuolation Not Reportable 08/17/21 04:13 Dohle Bodies Not Reportable 08/17/21 04:13 Pelger-Huet Anomaly Not Reportable 08/17/21 04:13 Nereyda Rods Not Reportable 08/17/21 04:13 Platelet Estimate Consistent w auto 08/17/21 04:13 Clumped Platelets Not Reportable 08/17/21 04:13 Plt Clumps, EDTA Not Reportable 08/17/21 04:13 Large Platelets Not Reportable 08/17/21 04:13 Giant Platelets Not Reportable 08/17/21 04:13 Platelet Satelliting Not Reportable 08/17/21 04:13 Plt Morphology Comment Not Reportable 08/17/21 04:13 RBC Morphology Normal 08/17/21 04:13 Dimorphic RBCs Not Reportable 08/17/21 04:13 Polychromasia Not Reportable 08/17/21 04:13 Hypochromasia Not Reportable 08/17/21 04:13 Poikilocytosis Not Reportable 08/17/21 04:13 Anisocytosis Not Reportable 08/17/21 04:13 Microcytosis Not Reportable 08/17/21 04:13 Macrocytosis Not Reportable 08/17/21 04:13 Spherocytes Not Reportable 08/17/21 04:13 Pappenheimer Bodies Not Reportable 08/17/21 04:13 Sickle Cells Not Reportable 08/17/21 04:13 Target Cells Not Reportable 08/17/21 04:13 Tear Drop Cells Not Reportable 08/17/21 04:13 Ovalocytes Not Reportable 08/17/21 04:13 Helmet Cells Not Reportable 08/17/21 04:13 [place] Bodies Not Reportable 08/17/21 04:13 [place] Rings Not Reportable 08/17/21 04:13 [place] Cells Not Reportable 08/17/21 04:13 Bite Cells Not Reportable 08/17/21 04:13 Crenated Cell Not Reportable 08/17/21 04:13 Elliptocytes Not Reportable 08/17/21 04:13 Acanthocytes (Spur) Not Reportable 08/17/21 04:13 Rouleaux Not Reportable 08/17/21 04:13 Hemoglobin C Crystals Not Reportable 08/17/21 04:13 Schistocytes Not Reportable 08/17/21 04:13 Malaria parasites Not Reportable 08/17/21 04:13 [place] Bodies Not Reportable 08/17/21 04:13 Hem Pathologist Commnt No 08/17/21 04:13 PT 14.6 Sec. (12.2-14.9) 08/18/21 04:30 INR 1.03 (0.87-1.13) 08/18/21 04:30 Heparin Anti-Xa Level 0.65 U.I./ml (0.3-0.7) 08/17/21 18:12 Sodium 141 mmol/L (137-145) 08/18/21 04:30 Potassium 4.0 mmol/L (3.6-5.0) 08/18/21 04:30 Chloride 108.0 mmol/L (98-107) H 08/18/21 04:30 Carbon Dioxide 24 mmol/L (22-30) 08/18/21 04:30 Anion Gap 13 mmol/L 08/18/21 04:30 BUN 17 mg/dL (9-20) 08/18/21 04:30 Creatinine 0.8 mg/dL (0.8-1.3) 08/18/21 04:30 Estimated GFR > 60 ml/min 08/18/21 04:30 BUN/Creatinine Ratio 21 % 08/18/21 04:30 Glucose 145 mg/dL (75-100) H 08/18/21 04:30 POC Glucose 102 mg/dL (70-105) 08/18/21 11:16 Lactic Acid 1.40 mmol/L (0.7-2.0) 08/16/21 16:18 Calcium 8.3 mg/dL (8.4-10.2) L 08/18/21 04:30 Total Bilirubin 0.60 mg/dL (0.1-1.2) 08/16/21 16:18 AST 13 units/L (5-40) 08/16/21 16:18 ALT 13 units/L (7-56) 08/16/21 16:18 Alkaline Phosphatase 91 units/L (35-129) 08/16/21 16:18 Total Protein 6.4 g/dL (6.3-8.2) 08/16/21 16:18 Albumin 3.6 g/dL (3.9-5) L 08/16/21 16:18 Albumin/Globulin Ratio 1.3 % 08/16/21 16:18 Urine Color Yellow (Yellow) 08/17/21 Unknown Urine Turbidity Cloudy (Clear) 08/17/21 Unknown Urine pH 6.0 (5.0-7.0) 08/17/21 Unknown Ur Specific [place] 1.017 (1.003-1.030) 08/17/21 Unknown Urine Protein 30 mg/dl mg/dL (Negative) 08/17/21 Unknown Urine Glucose (UA) >=500 mg/dL (Negative) 08/17/21 Unknown Urine Ketones Neg mg/dL (Negative) 08/17/21 Unknown Urine Blood Neg (Negative) 08/17/21 Unknown Urine Nitrite Neg (Negative) 08/17/21 Unknown Urine Bilirubin Neg (Negative) 08/17/21 Unknown Urine Urobilinogen 4.0 mg/dL (<2.0) 08/17/21 Unknown Ur Leukocyte Esterase Lg (Negative) 08/17/21 Unknown Urine WBC (Auto) < 1.0 /HPF (0.0-6.0) 08/17/21 Unknown Urine RBC (Auto) < 1.0 /HPF (0.0-6.0) 08/17/21 Unknown Urine Opiates Screen Negative 08/17/21 Unknown Urine Methadone Screen Negative 08/17/21 Unknown Ur Barbiturates Screen Negative 08/17/21 Unknown Ur Phencyclidine Scrn Negative 08/17/21 Unknown Ur Amphetamines Screen Negative 08/17/21 Unknown U Benzodiazepines Scrn Negative 08/17/21 Unknown Urine Cocaine Screen Negative 08/17/21 Unknown U Marijuana (THC) Screen Negative 08/17/21 Unknown Drugs of Abuse Note Disclamer 08/17/21 Unknown Microbiology: Microbiology 08/16/21 16:18 Peripheral/Venous Blood Culture - Preliminary NO GROWTH AFTER 24 HOURS 08/16/21 16:18 Peripheral/Venous Blood Culture - Preliminary NO GROWTH AFTER 24 HOURS Burns/IV: Voiding Method Urinal Active Medications - Current Medications Current Medications: Generic Name Dose Route Start Last Admin Trade Name Freq PRN Reason Stop Dose Admin Acetaminophen 650 mg 08/16/21 22:12 Acetaminophen 325 Mg Tab PO Q4H PRN Pain MILD(1-3)/Fever >100.5/ANDREWS Albuterol 2.5 mg 08/16/21 22:12 Albuterol 2.5 Mg/3 Ml Nebu IH Q3HRT PRN Shortness Of Breath Calcium Carbonate/Glycine 1,250 mg 08/17/21 10:00 08/18/21 10:38 Calcium Carbonate 1250 Mg Tab PO 1,250 mg QDAY XAVIER Administration Dextrose 0 ml 08/16/21 22:12 Dextrose 50% In Water (25gm) 50 Ml Syringe IV Q30MIN PRN Hypoglycemia Protocol Famotidine 20 mg 08/17/21 10:00 08/18/21 10:38 Famotidine 20 Mg Tab PO 20 mg BID XAVIER Administration Heparin Sodium (Porcine) 3,600 unit 08/17/21 16:00 Heparin 10,000 Units/10 Ml Vial IV Q6H PRN Anti-Xa Assay < 0.1 units/ml Heparin Sodium/Sodium Chloride 25,000 unit in 500 mls @ 27 mls/hr 08/17/21 13:30 08/18/21 07:09 Heparin/ 0.45% Nacl-25,000 Unit/500 Ml IV 1,350 units/hr TITR XAVIER 27 mls/hr Administration Protocol 1,350 UNITS/HR Insulin Human Lispro 0 unit 08/17/21 22:00 08/18/21 07:38 Insulin Lispro 100 Unit/Ml SUB-Q Not Given ACHS [facility] Protocol Metoprolol Tartrate 12.5 mg 08/18/21 10:00 08/18/21 10:38 Metoprolol Tartrate 25 Mg Tab PO 12.5 mg BID XAVIER Administration Montelukast Sodium 10 mg 08/17/21 22:00 08/17/21 21:37 Montelukast 10 Mg Tab PO 10 mg QHS XAVIER Administration Morphine Sulfate 2 mg 08/16/21 22:12 Morphine 2 Mg/1 Ml Inj IV Q4H PRN Pain, Moderate (4-6) Morphine Sulfate 4 mg 08/16/21 22:12 Morphine 4 Mg/1 Ml Inj IV Q4H PRN Pain , Severe (7-10) Ondansetron HCl 4 mg 08/16/21 22:12 Ondansetron 4 Mg/2 Ml Inj IV Q8H PRN Nausea And Vomiting Sodium Chloride 10 ml 08/17/21 10:00 08/18/21 10:39 Sodium Chloride 0.9% 10 Ml Flush Syringe IV 10 ml BID XAVIER Administration Sodium Chloride 10 ml 08/16/21 22:12 Sodium Chloride 0.9% 10 Ml Flush Syringe IV PRN PRN LINE FLUSH Warfarin Sodium 7.5 mg 08/18/21 17:00 Warfarin 7.5 Mg Tab PO 08/19/21 16:59 DAILY@1700 NR
[2021-08-18] MEDS ORDERED: WARFARIN 7.5 MG TAB PO NR (17:00)
[2021-08-18] MEDS: BENZTROPINE 0.5 MG TAB PO SCH (21:22)
[2021-08-18] MEDS: HALOPERIDOL 5 MG TAB PO SCH (21:23)
[2021-08-18] MEDS: MONTELUKAST 10 MG TAB PO SCH (21:23)
[2021-08-19] MEDS: HEPARIN/ 0.45% NACL DRIP 25,000 UNIT/500 ML BAG IV SCH (00:21)
[2021-08-19 06:15] LABS: Basophils # (Auto) 0.1 K/mm3 (0.0-0.1); Basophils % (Auto) 0.9 % (0.0-1.8); Eosinophils # (Auto) 0.1 K/mm3 (0.0-0.4); Eosinophils % (Auto) 0.7 % (0.0-4.3); Hematocrit 40.3 % (35.5-45.6); Lymphocytes # (Auto) 2.1 K/mm3 (1.2-5.4); Lymphocytes % (Auto) 20.9 % (13.4-35.0); Mean Corpuscular HGB Conc 32 % (32-34); Mean Corpuscular Volume 92 fl (84-94); Monocytes # (Auto) 0.7 K/mm3 (0.0-0.8); Monocytes % (Auto) 7.5 % (0.0-7.3); Platelet Count 225 K/mm3 (140-440); Red Blood Count 4.39 M/mm3 (3.65-5.03); Red Cell Distribution Width 14.9 % (13.2-15.2)
[2021-08-19 06:24] LABS: INR 0.99 (0.87-1.13)
[2021-08-19] MEDS: INSULIN LISPRO 100 UNIT/ML SUB-Q SCH ×4 (07:30→21:41)
[2021-08-19] MEDS: METOPROLOL TARTRATE 25 MG TAB PO SCH ×2 (10:52→21:40)
[2021-08-19] MEDS: FAMOTIDINE 20 MG TAB PO SCH ×2 (10:53→21:40)
[2021-08-19] MEDS: CALCIUM CARBONATE 1250 MG TAB PO SCH (10:53)
--- NOTE | 2021-08-19 13:36 | Consultation ---
History of Present Illness - Reason for Consult Consult date: 08/19/21 Reason for consult: schizophrenia - Chief Complaint Chief complaint: Dyspnea Respiratory distress Medications and Allergies Allergies Allergy/AdvReac Type Severity Reaction Status Date / Time No Known Allergies Allergy Verified 08/16/21 21:32 Home Medications Medication Instructions Recorded Confirmed Last Taken Type Azithromycin 500 mg PO DAILY #5 07/23/21 Unknown Rx Albuterol Mdi (or & Nicu Only) 2 puff IH QID PRN #8.5 gram 08/16/21 Unknown Rx [ProAir HFA Inhaler] Benztropine [Cogentin] 0.5 mg PO HS #30 tablet 08/16/21 Unknown Rx Metoprolol Xl [Metoprolol 50 mg PO QDAY #30 tablet 08/16/21 Unknown Rx SUCCINATE ER TAB] OLANzapine [ZyPREXA] 5 mg PO HS #30 tablet 08/16/21 Unknown Rx dexAMETHasone [Decadron] 4 mg PO BID 5 Days #10 tablet 08/16/21 Unknown Rx Active Meds: Active Medications Acetaminophen (Acetaminophen 325 Mg Tab) 650 mg PO Q4H PRN PRN Reason: Pain MILD(1-3)/Fever >100.5/ANDREWS Albuterol (Albuterol 2.5 Mg/3 Ml Nebu) 2.5 mg IH Q3HRT PRN PRN Reason: Shortness Of Breath Benztropine Mesylate (Benztropine 0.5 Mg Tab) 0.5 mg PO QHS [facility] Last Admin: 08/18/21 21:22 Dose: 0.5 mg Calcium Carbonate/Glycine (Calcium Carbonate 1250 Mg Tab) 1,250 mg PO QDAY [facility] Last Admin: 08/19/21 10:53 Dose: 1,250 mg Dextrose (Dextrose 50% In Water (25gm) 50 Ml Syringe) 0 ml IV Q30MIN PRN; Protocol PRN Reason: Hypoglycemia Famotidine (Famotidine 20 Mg Tab) 20 mg PO BID [facility] Last Admin: 08/19/21 10:53 Dose: 20 mg Haloperidol (Haloperidol 5 Mg Tab) 5 mg PO QHS [facility] Last Admin: 08/18/21 21:23 Dose: 5 mg Heparin Sodium (Porcine) (Heparin 10,000 Units/10 Ml Vial) 3,600 unit IV Q6H PRN PRN Reason: Anti-Xa Assay < 0.1 units/ml Heparin Sodium/Sodium Chloride (Heparin/ 0.45% Nacl-25,000 Unit/500 Ml) 25,000 unit in 500 mls @ 27 mls/hr IV TITR [facility]; Protocol Last Admin: 08/19/21 00:21 Dose: 1,350 units/hr, 27 mls/hr Insulin Human Lispro (Insulin Lispro 100 Unit/Ml) 0 unit SUB-Q ACHS [facility]; Protocol Last Admin: 08/19/21 07:30 Dose: Not Given Metoprolol Tartrate (Metoprolol Tartrate 25 Mg Tab) 12.5 mg PO BID [facility] Last Admin: 08/19/21 10:52 Dose: 12.5 mg Montelukast Sodium (Montelukast 10 Mg Tab) 10 mg PO QHS [facility] Last Admin: 08/18/21 21:23 Dose: 10 mg Morphine Sulfate (Morphine 2 Mg/1 Ml Inj) 2 mg IV Q4H PRN PRN Reason: Pain, Moderate (4-6) Morphine Sulfate (Morphine 4 Mg/1 Ml Inj) 4 mg IV Q4H PRN PRN Reason: Pain , Severe (7-10) Ondansetron HCl (Ondansetron 4 Mg/2 Ml Inj) 4 mg IV Q8H PRN PRN Reason: Nausea And Vomiting Sodium Chloride (Sodium Chloride 0.9% 10 Ml Flush Syringe) 10 ml IV BID [facility] Last Admin: 08/19/21 10:53 Dose: 10 ml Sodium Chloride (Sodium Chloride 0.9% 10 Ml Flush Syringe) 10 ml IV PRN PRN PRN Reason: LINE FLUSH Warfarin Sodium (Warfarin 10 Mg Tab) 10 mg PO DAILY@1700 [facility] Stop: 08/20/21 16:59 Mental Status Exam - Vital signs Last Vital Signs Temp 98.1 F 08/19/21 12:05 Pulse 60 08/19/21 12:05 Resp 17 08/19/21 12:05 BP 111/64 08/19/21 12:05 Pulse Ox 92 08/19/21 12:05 Results Result Diagrams: 08/19/21 05:44 08/18/21 04:30 Abnormal lab results 08/19/21 Range/Units 05:44 [place] % (Auto) 7.5 H (0.0-7.3) % All other labs normal.
--- NOTE | 2021-08-19 13:38 | Progress Note ---
Subjective - Reason for Consult Consult date: 08/19/21 Reason for consult: MHE - Chief Complaint Chief complaint: Patient describes a good and stable mood, denies being depressed or excessively nervous. Patient eats and sleeps well. Patient denies panic attacks, recurrent nightmares or flashbacks. Patient denies symptoms suggestive of OCD or PTSD. Patient denies hallucinations, paranoia, thought interference and no features suggestive of hypomania or matt. He completely denies suicidal or homicidal thoughts. Mental Status Exam - Vital signs Last Vital Signs Temp 98.1 F 08/19/21 12:05 Pulse 60 08/19/21 12:05 Resp 17 08/19/21 12:05 BP 111/64 08/19/21 12:05 Pulse Ox 92 08/19/21 12:05
--- NOTE | 2021-08-19 14:56 | Progress Note ---
Assessment and Plan Assessment and plan: #COPD exacerbationruled out Patient denies increased sputum production, change in color SpO2 goal 88 to 92% on room air #Atrial fibrillation with RVRresolved #Acute hypoxic respiratory failureresolved - etiology: Secondary to A. fib with RVR - baseline oxygen requirements: Room air - supplemental oxygen: 2 L nasal cannula Transition p.o. Cardizem 30 mg every 6 hours to metoprolol tartrate 25 mg twice daily. Patient endorses taking Xarelto at home for anticoagulation in the setting of A. fib; however, the patient does not have the financial ability to continue this medication. Initiating warfarin with heparin bridge. INR goal 23. INR: 1.0--> 1.03 Discontinue steroids, azithromycin, and Rocephin. - Continue protocol: continue pulse oximetry, wean oxygen as tolerated, ordered incentive spirometry and educated patient on how to use it and its importance. - continue to monitor #Hypertension - home medications: Metoprolol succinate 50 mg daily - current medications: Currently holding as the patient is normotensive - SBP goal <160 and DBP goal <90 while inpatient - continue to monitor #Schizophrenia Patient unable to provide name of medication. Psychiatry consulted; appreciate recs. #Hypocalcemia Calcium 8.1 Repleted. Continue to monitor. #Mild protein caloric malnutrition Albumin 3.6 Continue dietary supplementation. #Unsheltered homelessness Case management consulted with assistance of finding a fpc for the patient upon discharge. Case management expresses understanding. #Tobacco dependence #Tobacco/Smoking cessation counseling - Counseled patient about the importance of smoking cessation and the possible sequelae as a result of continued tobacco consumption. The patient expresses understanding. -Time: +15 mins #Advanced care planning -Disease education conducted, care plan discussed, diagnoses discussed, prognosis discussed, and patient acknowledges understanding with care plan -Time: +30 min #Discharge planning - Patient is pending resolution of respiratory failure and INR of 23. - Case management has been made aware. Disposition Plan: Continue medical management Total Time Spent with Patient (Minutes): 30 minutes History Interval history: No acute events overnight. Hospitalist Physical - Constitutional Vitals: Temp Pulse Resp BP Pulse Ox 98.1 F 60 17 111/64 92 08/19/21 12:05 08/19/21 12:05 08/19/21 12:05 08/19/21 12:05 08/19/21 12:05 General appearance: Present: no acute distress, well-nourished, obese - EENT Eyes: Present: PERRL, EOM intact ENT: hearing intact, clear oral mucosa, dentition normal - Neck Neck: Present: supple, normal ROM - Respiratory Respiratory effort: normal Respiratory: bilateral: diminished - Cardiovascular Rhythm: regular Heart Sounds: Present: S1 & S2 - Extremities Extremities: no ischemia, pulses intact, pulses symmetrical, No edema, normal temperature, normal color, Full ROM Peripheral Pulses: within normal limits - Abdominal General gastrointestinal: soft, non-tender, non-distended, normal bowel sounds - Integumentary Integumentary: Present: clear, warm, dry - Psychiatric Psychiatric: appropriate mood/affect, cooperative - Neurologic Neurologic: CNII-XII intact, moves all extremities - Allied Health Allied health notes reviewed: nursing Results - Labs CBC & Chem 7: 08/19/21 05:44 08/18/21 04:30 Labs: Laboratory Last Values WBC 9.8 K/mm3 (4.5-11.0) 08/19/21 05:44 RBC 4.39 M/mm3 (3.65-5.03) 08/19/21 05:44 Hgb 13.0 gm/dl (11.8-15.2) 08/19/21 05:44 Hct 40.3 % (35.5-45.6) 08/19/21 05:44 MCV 92 fl (84-94) 08/19/21 05:44 MCH 30 pg (28-32) 08/19/21 05:44 MCHC 32 % (32-34) 08/19/21 05:44 RDW 14.9 % (13.2-15.2) 08/19/21 05:44 Plt Count 225 K/mm3 (140-440) 08/19/21 05:44 Lymph % (Auto) 20.9 % (13.4-35.0) 08/19/21 05:44 [place] % (Auto) 7.5 % (0.0-7.3) H 08/19/21 05:44 Eos % (Auto) 0.7 % (0.0-4.3) 08/19/21 05:44 Baso % (Auto) 0.9 % (0.0-1.8) 08/19/21 05:44 Lymph # (Auto) 2.1 K/mm3 (1.2-5.4) 08/19/21 05:44 [place] # (Auto) 0.7 K/mm3 (0.0-0.8) 08/19/21 05:44 Eos # (Auto) 0.1 K/mm3 (0.0-0.4) 08/19/21 05:44 Baso # (Auto) 0.1 K/mm3 (0.0-0.1) 08/19/21 05:44 Add Manual Diff Complete 08/17/21 04:13 Total Counted 100 08/17/21 04:13 Seg Neutrophils % 70.0 % (40.0-70.0) 08/19/21 05:44 Seg Neuts % (Manual) 89.0 % (40.0-70.0) H 08/17/21 04:13 Band Neutrophils % 2.0 % 08/17/21 04:13 Lymphocytes % (Manual) 5.0 % (13.4-35.0) L 08/17/21 04:13 Reactive Lymphs % (Man) 0 % 08/17/21 04:13 Monocytes % (Manual) 4.0 % (0.0-7.3) 08/17/21 04:13 Eosinophils % (Manual) 0 % (0.0-4.3) 08/17/21 04:13 Basophils % (Manual) 0 % (0.0-1.8) 08/17/21 04:13 Metamyelocytes % 0 % 08/17/21 04:13 Myelocytes % 0 % 08/17/21 04:13 Promyelocytes % 0 % 08/17/21 04:13 Blast Cells % 0 % 08/17/21 04:13 Nucleated RBC % Not Reportable 08/17/21 04:13 Seg Neutrophils # 6.9 K/mm3 (1.8-7.7) 08/19/21 05:44 Seg Neutrophils # Man 12.3 K/mm3 (1.8-7.7) H 08/17/21 04:13 Band Neutrophils # 0.3 K/mm3 08/17/21 04:13 Lymphocytes # (Manual) 0.7 K/mm3 (1.2-5.4) L 08/17/21 04:13 Abs React Lymphs (Man) 0.0 K/mm3 08/17/21 04:13 Monocytes # (Manual) 0.6 K/mm3 (0.0-0.8) 08/17/21 04:13 Eosinophils # (Manual) 0.0 K/mm3 (0.0-0.4) 08/17/21 04:13 Basophils # (Manual) 0.0 K/mm3 (0.0-0.1) 08/17/21 04:13 Metamyelocytes # 0.0 K/mm3 08/17/21 04:13 Myelocytes # 0.0 K/mm3 08/17/21 04:13 Promyelocytes # 0.0 K/mm3 08/17/21 04:13 Blast Cells # 0.0 K/mm3 08/17/21 04:13 WBC Morphology Not Reportable 08/17/21 04:13 Hypersegmented Neuts Not Reportable 08/17/21 04:13 Hyposegmented Neuts Not Reportable 08/17/21 04:13 Hypogranular Neuts Not Reportable 08/17/21 04:13 Smudge Cells Not Reportable 08/17/21 04:13 Toxic Granulation Not Reportable 08/17/21 04:13 Toxic Vacuolation Not Reportable 08/17/21 04:13 Dohle Bodies Not Reportable 08/17/21 04:13 Pelger-Huet Anomaly Not Reportable 08/17/21 04:13 Nereyda Rods Not Reportable 08/17/21 04:13 Platelet Estimate Consistent w auto 08/17/21 04:13 Clumped Platelets Not Reportable 08/17/21 04:13 Plt Clumps, EDTA Not Reportable 08/17/21 04:13 Large Platelets Not Reportable 08/17/21 04:13 Giant Platelets Not Reportable 08/17/21 04:13 Platelet Satelliting Not Reportable 08/17/21 04:13 Plt Morphology Comment Not Reportable 08/17/21 04:13 RBC Morphology Normal 08/17/21 04:13 Dimorphic RBCs Not Reportable 08/17/21 04:13 Polychromasia Not Reportable 08/17/21 04:13 Hypochromasia Not Reportable 08/17/21 04:13 Poikilocytosis Not Reportable 08/17/21 04:13 Anisocytosis Not Reportable 08/17/21 04:13 Microcytosis Not Reportable 08/17/21 04:13 Macrocytosis Not Reportable 08/17/21 04:13 Spherocytes Not Reportable 08/17/21 04:13 Pappenheimer Bodies Not Reportable 08/17/21 04:13 Sickle Cells Not Reportable 08/17/21 04:13 Target Cells Not Reportable 08/17/21 04:13 Tear Drop Cells Not Reportable 08/17/21 04:13 Ovalocytes Not Reportable 08/17/21 04:13 Helmet Cells Not Reportable 08/17/21 04:13 [place] Bodies Not Reportable 08/17/21 04:13 [place] Rings Not Reportable 08/17/21 04:13 [place] Cells Not Reportable 08/17/21 04:13 Bite Cells Not Reportable 08/17/21 04:13 Crenated Cell Not Reportable 08/17/21 04:13 Elliptocytes Not Reportable 08/17/21 04:13 Acanthocytes (Spur) Not Reportable 08/17/21 04:13 Rouleaux Not Reportable 08/17/21 04:13 Hemoglobin C Crystals Not Reportable 08/17/21 04:13 Schistocytes Not Reportable 08/17/21 04:13 Malaria parasites Not Reportable 08/17/21 04:13 [place] Bodies Not Reportable 08/17/21 04:13 Hem Pathologist Commnt No 08/17/21 04:13 PT 14.2 Sec. (12.2-14.9) 08/19/21 05:44 INR 0.99 (0.87-1.13) 08/19/21 05:44 Heparin Anti-Xa Level 0.30 U.I./ml (0.3-0.7) 08/18/21 19:30 Sodium 141 mmol/L (137-145) 08/18/21 04:30 Potassium 4.0 mmol/L (3.6-5.0) 08/18/21 04:30 Chloride 108.0 mmol/L (98-107) H 08/18/21 04:30 Carbon Dioxide 24 mmol/L (22-30) 08/18/21 04:30 Anion Gap 13 mmol/L 08/18/21 04:30 BUN 17 mg/dL (9-20) 08/18/21 04:30 Creatinine 0.8 mg/dL (0.8-1.3) 08/18/21 04:30 Estimated GFR > 60 ml/min 08/18/21 04:30 BUN/Creatinine Ratio 21 % 08/18/21 04:30 Glucose 145 mg/dL (75-100) H 08/18/21 04:30 POC Glucose 96 mg/dL (70-105) 08/19/21 12:06 Lactic Acid 1.40 mmol/L (0.7-2.0) 08/16/21 16:18 Calcium 8.3 mg/dL (8.4-10.2) L 08/18/21 04:30 Total Bilirubin 0.60 mg/dL (0.1-1.2) 08/16/21 16:18 AST 13 units/L (5-40) 08/16/21 16:18 ALT 13 units/L (7-56) 08/16/21 16:18 Alkaline Phosphatase 91 units/L (35-129) 08/16/21 16:18 Total Protein 6.4 g/dL (6.3-8.2) 08/16/21 16:18 Albumin 3.6 g/dL (3.9-5) L 08/16/21 16:18 Albumin/Globulin Ratio 1.3 % 08/16/21 16:18 Urine Color Yellow (Yellow) 08/17/21 Unknown Urine Turbidity Cloudy (Clear) 08/17/21 Unknown Urine pH 6.0 (5.0-7.0) 08/17/21 Unknown Ur Specific [place] 1.017 (1.003-1.030) 08/17/21 Unknown Urine Protein 30 mg/dl mg/dL (Negative) 08/17/21 Unknown Urine Glucose (UA) >=500 mg/dL (Negative) 08/17/21 Unknown Urine Ketones Neg mg/dL (Negative) 08/17/21 Unknown Urine Blood Neg (Negative) 08/17/21 Unknown Urine Nitrite Neg (Negative) 08/17/21 Unknown Urine Bilirubin Neg (Negative) 08/17/21 Unknown Urine Urobilinogen 4.0 mg/dL (<2.0) 08/17/21 Unknown Ur Leukocyte Esterase Lg (Negative) 08/17/21 Unknown Urine WBC (Auto) < 1.0 /HPF (0.0-6.0) 08/17/21 Unknown Urine RBC (Auto) < 1.0 /HPF (0.0-6.0) 08/17/21 Unknown Urine Opiates Screen Negative 08/17/21 Unknown Urine Methadone Screen Negative 08/17/21 Unknown Ur Barbiturates Screen Negative 08/17/21 Unknown Ur Phencyclidine Scrn Negative 08/17/21 Unknown Ur Amphetamines Screen Negative 08/17/21 Unknown U Benzodiazepines Scrn Negative 08/17/21 Unknown Urine Cocaine Screen Negative 08/17/21 Unknown U Marijuana (THC) Screen Negative 08/17/21 Unknown Drugs of Abuse Note Disclamer 08/17/21 Unknown Microbiology: Microbiology 08/16/21 16:18 Peripheral/Venous Blood Culture - Preliminary NO GROWTH AFTER 48 HOURS 08/16/21 16:18 Peripheral/Venous Blood Culture - Preliminary NO GROWTH AFTER 48 HOURS Burns/IV: Voiding Method Urinal Active Medications - Current Medications Current Medications: Generic Name Dose Route Start Last Admin Trade Name Freq PRN Reason Stop Dose Admin Acetaminophen 650 mg 08/16/21 22:12 Acetaminophen 325 Mg Tab PO Q4H PRN Pain MILD(1-3)/Fever >100.5/ANDREWS Albuterol 2.5 mg 08/16/21 22:12 Albuterol 2.5 Mg/3 Ml Nebu IH Q3HRT PRN Shortness Of Breath Benztropine Mesylate 0.5 mg 08/18/21 22:00 08/18/21 21:22 Benztropine 0.5 Mg Tab PO 0.5 mg QHS XAVIER Administration Calcium Carbonate/Glycine 1,250 mg 08/17/21 10:00 08/19/21 10:53 Calcium Carbonate 1250 Mg Tab PO 1,250 mg QDAY XAVIER Administration Dextrose 0 ml 08/16/21 22:12 Dextrose 50% In Water (25gm) 50 Ml Syringe IV Q30MIN PRN Hypoglycemia Protocol Famotidine 20 mg 08/17/21 10:00 08/19/21 10:53 Famotidine 20 Mg Tab PO 20 mg BID XAVIER Administration Haloperidol 5 mg 08/18/21 22:00 08/18/21 21:23 Haloperidol 5 Mg Tab PO 5 mg QHS XAVIER Administration Heparin Sodium (Porcine) 3,600 unit 08/17/21 16:00 Heparin 10,000 Units/10 Ml Vial IV Q6H PRN Anti-Xa Assay < 0.1 units/ml Heparin Sodium/Sodium Chloride 25,000 unit in 500 mls @ 27 mls/hr 08/17/21 13:30 08/19/21 00:21 Heparin/ 0.45% Nacl-25,000 Unit/500 Ml IV 1,350 units/hr TITR XAVIER 27 mls/hr Administration Protocol 1,350 UNITS/HR Insulin Human Lispro 0 unit 08/17/21 22:00 08/19/21 07:30 Insulin Lispro 100 Unit/Ml SUB-Q Not Given ACHS [facility] Protocol Metoprolol Tartrate 12.5 mg 08/18/21 10:00 08/19/21 10:52 Metoprolol Tartrate 25 Mg Tab PO 12.5 mg BID [facility] Administration Montelukast Sodium 10 mg 08/17/21 22:00 08/18/21 21:23 Montelukast 10 Mg Tab PO 10 mg QHS [facility] Administration Morphine Sulfate 2 mg 08/16/21 22:12 Morphine 2 Mg/1 Ml Inj IV Q4H PRN Pain, Moderate (4-6) Morphine Sulfate 4 mg 08/16/21 22:12 Morphine 4 Mg/1 Ml Inj IV Q4H PRN Pain , Severe (7-10) Ondansetron HCl 4 mg 08/16/21 22:12 Ondansetron 4 Mg/2 Ml Inj IV Q8H PRN Nausea And Vomiting Sodium Chloride 10 ml 08/17/21 10:00 08/19/21 10:53 Sodium Chloride 0.9% 10 Ml Flush Syringe IV 10 ml BID XAVIER Administration Sodium Chloride 10 ml 08/16/21 22:12 Sodium Chloride 0.9% 10 Ml Flush Syringe IV PRN PRN LINE FLUSH Warfarin Sodium 10 mg 08/19/21 17:00 Warfarin 10 Mg Tab PO 08/20/21 16:59 DAILY@1700 [facility] Nutrition/Malnutrition Assess - Dietary Evaluation Nutrition/Malnutrition Findings: Nutrition Notes Start: 08/18/21 14:16 Freq: Status: Active Protocol: Document 08/18/21 14:16 KAROL (Rec: 08/18/21 14:48 KAROL [id number]) Nutrition Notes Need for Assessment generated from: Education Initial or Follow up Assessment Current Diagnosis COPD,Diabetes,Hypertension, Malnutrition Other Pertinent Diagnosis Atrial Fibrilation w/RVR, Schizophrenia. Current Diet Cardiac/Consistent Carbohydrates Diet + ONS ( since B 08/16). Labs/Tests 08/18: Cl 108.0, Glu 145, Ca 8 .3. Pertinent Medications 08/18: Coumadin 7.5 mg, others nutritionally unremarkable. Height 5 ft 9 in Weight 91.626 kg [place] Body Weight (kg) 72.72 BMI 29.8 Intake Prior to Admission Good Weight change and time frame Pt denies having loss body weight [employer]. Weight Status Overweight Subjective/Other Information RD consult for warfarin use education assessment. No reports available on Pt's PO intake of meals at the time , will assess at F/U. I will prescribe Dietary supplementation to compensate for possible poor or insufficient PO intake of meals. Pt is on Nasal Cannula, O2 saturation @ 98%, according to Physical Assessment History notes. Pt started on Warfarine on , according to Progress notes; is a candidate for nutrition education, will assess feasibility at F/U. Pt is homeless, according to Progress notes. Percent of energy/protein needs met: Prescribed Cardiac/Consistent Carbohydrates Diet provides for energy/protein needs (1, 977 Kcal/86 g) during LOS; additionally, Dietary Supplements will compensate for possible poor or insufficient PO intake of meals with 440 Kcal and 20 g of protein. Burn Absent Trauma Absent GI Symptoms None Food Allergy No Skin Integrity/Comment Assessment WNL. 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 Etiology Uncertain. As Evidenced by Signs and Symptoms MD request for Dietary Supplementation and lack of reports on Pt's PO intake of meals. #1 Nutrition Diagnosis Food and nutrition-related knowledge deficit Etiology Warfarine use. As Evidenced by Signs and Symptoms New to warfarine treatment. Is patient on ventilator? No Is Patient Ambulatory and/or Out of Bed Yes REE-([place] or-ambulatory/OOB) [ 4420.632 NUTR.[id number]] Kcal/Kg value to use for calculation 21 Approximate Energy Requirements Using 1924 kcal/Kg Calculation Used for Recommendations Kcal/kg Additional Notes Protein: 1-1.2 g/Kg ABW; 92- 110 g/day. Fluids: 1 ml/Kcal, or as per MD. Nutrition Intervention Change Diet Order: Continue Cardiac/Consistent Carbohydrates Diet. Add Supplement/Snack (indicate name/kcal Start 8 fl oz Glucerna; BID, /protein ) Provides kCal: 440 Provides Protein (gm) 20 Goal #1 Compensate, through dietary supplementation, for possible poor or insufficient PO intake of meals during LOS. Goal #2 During LOS, provide Pt with nutrition education to foster behavioral changes towards a healthy lifestyle. Goal #3 Maintain body weight within +/ -3% of admission body weight during LOS. Follow-Up By: 08/23/21 Additional Comments Nutrition education will be provided on F/U, if feasible. Continue monitoring food tolerance, %PO intake of meals , and BM.
[2021-08-19] MEDS ORDERED: WARFARIN 10 MG TAB PO SCH (17:00)
[2021-08-19] MEDS: BENZTROPINE 0.5 MG TAB PO SCH (21:39)
[2021-08-19] MEDS: HALOPERIDOL 5 MG TAB PO SCH (21:42)
[2021-08-19] MEDS: MONTELUKAST 10 MG TAB PO SCH (21:42)
[2021-08-20] MEDS: HEPARIN/ 0.45% NACL DRIP 25,000 UNIT/500 ML BAG IV SCH ×2 (00:15→15:32)
[2021-08-20 06:22] LABS: INR 1.08 (0.87-1.13)
[2021-08-20] MEDS: INSULIN LISPRO 100 UNIT/ML SUB-Q SCH ×4 (09:23→21:47)
[2021-08-20] MEDS: METOPROLOL TARTRATE 25 MG TAB PO SCH ×2 (09:31→21:45)
[2021-08-20] MEDS: FAMOTIDINE 20 MG TAB PO SCH ×2 (09:31→21:45)
[2021-08-20] MEDS: CALCIUM CARBONATE 1250 MG TAB PO SCH (09:31)
--- NOTE | 2021-08-20 15:25 | Progress Note ---
Assessment and Plan Assessment and plan: #COPD exacerbationruled out Patient denies increased sputum production, change in color SpO2 goal 88 to 92% on room air #Atrial fibrillation with RVRresolved #Acute hypoxic respiratory failureresolved - etiology: Secondary to A. fib with RVR - baseline oxygen requirements: Room air - supplemental oxygen: 2 L nasal cannula Transition p.o. Cardizem 30 mg every 6 hours to metoprolol tartrate 25 mg twice daily. Patient endorses taking Xarelto at home for anticoagulation in the setting of A. fib; however, the patient does not have the financial ability to continue this medication. Continue warfarin with heparin bridge. INR goal 23. INR: 1.0--> 1.03--> 1.08 Discontinue steroids, azithromycin, and Rocephin. - Continue protocol: continue pulse oximetry, wean oxygen as tolerated, ordered incentive spirometry and educated patient on how to use it and its importance. - continue to monitor #Hypertension - home medications: Metoprolol succinate 50 mg daily - current medications: Currently holding as the patient is normotensive - SBP goal <160 and DBP goal <90 while inpatient - continue to monitor #Schizophrenia Patient unable to provide name of medication. Psychiatry consulted; appreciate recs. #Hypocalcemia Calcium 8.1 Repleted. Continue to monitor. #Mild protein caloric malnutrition Albumin 3.6 Continue dietary supplementation. #Unsheltered homelessness Case management consulted with assistance of finding a custodial for the patient upon discharge. Case management expresses understanding. #Tobacco dependence #Tobacco/Smoking cessation counseling - Counseled patient about the importance of smoking cessation and the possible sequelae as a result of continued tobacco consumption. The patient expresses understanding. -Time: +15 mins #Advanced care planning -Disease education conducted, care plan discussed, diagnoses discussed, prognosis discussed, and patient acknowledges understanding with care plan -Time: +30 min #Discharge planning - Patient is pending resolution of respiratory failure and INR of 23. - Case management has been made aware. Disposition Plan: Continue medical management Total Time Spent with Patient (Minutes): 30 minutes History Interval history: No acute events overnight. Hospitalist Physical - Constitutional Vitals: Temp Pulse Resp BP Pulse Ox 97.9 F 56 L 18 133/75 97 08/20/21 11:40 08/20/21 11:40 08/20/21 03:55 08/20/21 11:40 08/20/21 13:44 General appearance: Present: no acute distress, well-nourished, obese - EENT Eyes: Present: PERRL, EOM intact ENT: hearing intact, clear oral mucosa, dentition normal - Neck Neck: Present: supple, normal ROM - Respiratory Respiratory effort: normal Respiratory: bilateral: CTA - Cardiovascular Rhythm: regular Heart Sounds: Present: S1 & S2 - Extremities Extremities: no ischemia, pulses intact, pulses symmetrical, No edema, normal temperature, normal color, Full ROM Peripheral Pulses: within normal limits - Abdominal General gastrointestinal: soft, non-tender, non-distended, normal bowel sounds - Integumentary Integumentary: Present: clear, warm, dry - Psychiatric Psychiatric: appropriate mood/affect, memory intact, cooperative - Neurologic Neurologic: CNII-XII intact, moves all extremities - Allied Health Allied health notes reviewed: nursing Results - Labs CBC & Chem 7: 08/19/21 05:44 08/18/21 04:30 Labs: Laboratory Last Values WBC 9.8 K/mm3 (4.5-11.0) 08/19/21 05:44 RBC 4.39 M/mm3 (3.65-5.03) 08/19/21 05:44 Hgb 13.0 gm/dl (11.8-15.2) 08/19/21 05:44 Hct 40.3 % (35.5-45.6) 08/19/21 05:44 MCV 92 fl (84-94) 08/19/21 05:44 MCH 30 pg (28-32) 08/19/21 05:44 MCHC 32 % (32-34) 08/19/21 05:44 RDW 14.9 % (13.2-15.2) 08/19/21 05:44 Plt Count 225 K/mm3 (140-440) 08/19/21 05:44 Lymph % (Auto) 20.9 % (13.4-35.0) 08/19/21 05:44 Martin % (Auto) 7.5 % (0.0-7.3) H 08/19/21 05:44 Eos % (Auto) 0.7 % (0.0-4.3) 08/19/21 05:44 Baso % (Auto) 0.9 % (0.0-1.8) 08/19/21 05:44 Lymph # (Auto) 2.1 K/mm3 (1.2-5.4) 08/19/21 05:44 Martin # (Auto) 0.7 K/mm3 (0.0-0.8) 08/19/21 05:44 Eos # (Auto) 0.1 K/mm3 (0.0-0.4) 08/19/21 05:44 Baso # (Auto) 0.1 K/mm3 (0.0-0.1) 08/19/21 05:44 Add Manual Diff Complete 08/17/21 04:13 Total Counted 100 08/17/21 04:13 Seg Neutrophils % 70.0 % (40.0-70.0) 08/19/21 05:44 Seg Neuts % (Manual) 89.0 % (40.0-70.0) H 08/17/21 04:13 Band Neutrophils % 2.0 % 08/17/21 04:13 Lymphocytes % (Manual) 5.0 % (13.4-35.0) L 08/17/21 04:13 Reactive Lymphs % (Man) 0 % 08/17/21 04:13 Monocytes % (Manual) 4.0 % (0.0-7.3) 08/17/21 04:13 Eosinophils % (Manual) 0 % (0.0-4.3) 08/17/21 04:13 Basophils % (Manual) 0 % (0.0-1.8) 08/17/21 04:13 Metamyelocytes % 0 % 08/17/21 04:13 Myelocytes % 0 % 08/17/21 04:13 Promyelocytes % 0 % 08/17/21 04:13 Blast Cells % 0 % 08/17/21 04:13 Nucleated RBC % Not Reportable 08/17/21 04:13 Seg Neutrophils # 6.9 K/mm3 (1.8-7.7) 08/19/21 05:44 Seg Neutrophils # Man 12.3 K/mm3 (1.8-7.7) H 08/17/21 04:13 Band Neutrophils # 0.3 K/mm3 08/17/21 04:13 Lymphocytes # (Manual) 0.7 K/mm3 (1.2-5.4) L 08/17/21 04:13 Abs React Lymphs (Man) 0.0 K/mm3 08/17/21 04:13 Monocytes # (Manual) 0.6 K/mm3 (0.0-0.8) 08/17/21 04:13 Eosinophils # (Manual) 0.0 K/mm3 (0.0-0.4) 08/17/21 04:13 Basophils # (Manual) 0.0 K/mm3 (0.0-0.1) 08/17/21 04:13 Metamyelocytes # 0.0 K/mm3 08/17/21 04:13 Myelocytes # 0.0 K/mm3 08/17/21 04:13 Promyelocytes # 0.0 K/mm3 08/17/21 04:13 Blast Cells # 0.0 K/mm3 08/17/21 04:13 WBC Morphology Not Reportable 08/17/21 04:13 Hypersegmented Neuts Not Reportable 08/17/21 04:13 Hyposegmented Neuts Not Reportable 08/17/21 04:13 Hypogranular Neuts Not Reportable 08/17/21 04:13 Smudge Cells Not Reportable 08/17/21 04:13 Toxic Granulation Not Reportable 08/17/21 04:13 Toxic Vacuolation Not Reportable 08/17/21 04:13 Dohle Bodies Not Reportable 08/17/21 04:13 Pelger-Huet Anomaly Not Reportable 08/17/21 04:13 Nereyda Rods Not Reportable 08/17/21 04:13 Platelet Estimate Consistent w auto 08/17/21 04:13 Clumped Platelets Not Reportable 08/17/21 04:13 Plt Clumps, EDTA Not Reportable 08/17/21 04:13 Large Platelets Not Reportable 08/17/21 04:13 Giant Platelets Not Reportable 08/17/21 04:13 Platelet Satelliting Not Reportable 08/17/21 04:13 Plt Morphology Comment Not Reportable 08/17/21 04:13 RBC Morphology Normal 08/17/21 04:13 Dimorphic RBCs Not Reportable 08/17/21 04:13 Polychromasia Not Reportable 08/17/21 04:13 Hypochromasia Not Reportable 08/17/21 04:13 Poikilocytosis Not Reportable 08/17/21 04:13 Anisocytosis Not Reportable 08/17/21 04:13 Microcytosis Not Reportable 08/17/21 04:13 Macrocytosis Not Reportable 08/17/21 04:13 Spherocytes Not Reportable 08/17/21 04:13 Pappenheimer Bodies Not Reportable 08/17/21 04:13 Sickle Cells Not Reportable 08/17/21 04:13 Target Cells Not Reportable 08/17/21 04:13 Tear Drop Cells Not Reportable 08/17/21 04:13 Ovalocytes Not Reportable 08/17/21 04:13 Helmet Cells Not Reportable 08/17/21 04:13 [place] Bodies Not Reportable 08/17/21 04:13 [place] Rings Not Reportable 08/17/21 04:13 [place] Cells Not Reportable 08/17/21 04:13 Bite Cells Not Reportable 08/17/21 04:13 Crenated Cell Not Reportable 08/17/21 04:13 Elliptocytes Not Reportable 08/17/21 04:13 Acanthocytes (Spur) Not Reportable 08/17/21 04:13 Rouleaux Not Reportable 08/17/21 04:13 Hemoglobin C Crystals Not Reportable 08/17/21 04:13 Schistocytes Not Reportable 08/17/21 04:13 Malaria parasites Not Reportable 08/17/21 04:13 [place] Bodies Not Reportable 08/17/21 04:13 Hem Pathologist Commnt No 08/17/21 04:13 PT 15.2 Sec. (12.2-14.9) H 08/20/21 05:37 INR 1.08 (0.87-1.13) 08/20/21 05:37 Heparin Anti-Xa Level 0.32 U.I./ml (0.3-0.7) 08/20/21 05:37 Sodium 141 mmol/L (137-145) 08/18/21 04:30 Potassium 4.0 mmol/L (3.6-5.0) 08/18/21 04:30 Chloride 108.0 mmol/L (98-107) H 08/18/21 04:30 Carbon Dioxide 24 mmol/L (22-30) 08/18/21 04:30 Anion Gap 13 mmol/L 08/18/21 04:30 BUN 17 mg/dL (9-20) 08/18/21 04:30 Creatinine 0.8 mg/dL (0.8-1.3) 08/18/21 04:30 Estimated GFR > 60 ml/min 08/18/21 04:30 BUN/Creatinine Ratio 21 % 08/18/21 04:30 Glucose 145 mg/dL (75-100) H 08/18/21 04:30 POC Glucose 114 mg/dL (70-105) H 08/20/21 11:42 Lactic Acid 1.40 mmol/L (0.7-2.0) 08/16/21 16:18 Calcium 8.3 mg/dL (8.4-10.2) L 08/18/21 04:30 Total Bilirubin 0.60 mg/dL (0.1-1.2) 08/16/21 16:18 AST 13 units/L (5-40) 08/16/21 16:18 ALT 13 units/L (7-56) 08/16/21 16:18 Alkaline Phosphatase 91 units/L (35-129) 08/16/21 16:18 Total Protein 6.4 g/dL (6.3-8.2) 08/16/21 16:18 Albumin 3.6 g/dL (3.9-5) L 08/16/21 16:18 Albumin/Globulin Ratio 1.3 % 08/16/21 16:18 Urine Color Yellow (Yellow) 08/17/21 Unknown Urine Turbidity Cloudy (Clear) 08/17/21 Unknown Urine pH 6.0 (5.0-7.0) 08/17/21 Unknown Ur Specific [place] 1.017 (1.003-1.030) 08/17/21 Unknown Urine Protein 30 mg/dl mg/dL (Negative) 08/17/21 Unknown Urine Glucose (UA) >=500 mg/dL (Negative) 08/17/21 Unknown Urine Ketones Neg mg/dL (Negative) 08/17/21 Unknown Urine Blood Neg (Negative) 08/17/21 Unknown Urine Nitrite Neg (Negative) 08/17/21 Unknown Urine Bilirubin Neg (Negative) 08/17/21 Unknown Urine Urobilinogen 4.0 mg/dL (<2.0) 08/17/21 Unknown Ur Leukocyte Esterase Lg (Negative) 08/17/21 Unknown Urine WBC (Auto) < 1.0 /HPF (0.0-6.0) 08/17/21 Unknown Urine RBC (Auto) < 1.0 /HPF (0.0-6.0) 08/17/21 Unknown Urine Opiates Screen Negative 08/17/21 Unknown Urine Methadone Screen Negative 08/17/21 Unknown Ur Barbiturates Screen Negative 08/17/21 Unknown Ur Phencyclidine Scrn Negative 08/17/21 Unknown Ur Amphetamines Screen Negative 08/17/21 Unknown U Benzodiazepines Scrn Negative 08/17/21 Unknown Urine Cocaine Screen Negative 08/17/21 Unknown U Marijuana (THC) Screen Negative 08/17/21 Unknown Drugs of Abuse Note Disclamer 08/17/21 Unknown Microbiology: Microbiology 08/16/21 16:18 Peripheral/Venous Blood Culture - Preliminary NO GROWTH AFTER 72 HOURS 08/16/21 16:18 Peripheral/Venous Blood Culture - Preliminary NO GROWTH AFTER 72 HOURS Burns/IV: Voiding Method Urinal Active Medications - Current Medications Current Medications: Generic Name Dose Route Start Last Admin Trade Name Freq PRN Reason Stop Dose Admin Acetaminophen 650 mg 08/16/21 22:12 Acetaminophen 325 Mg Tab PO Q4H PRN Pain MILD(1-3)/Fever >100.5/ANDREWS Albuterol 2.5 mg 08/16/21 22:12 Albuterol 2.5 Mg/3 Ml Nebu IH Q3HRT PRN Shortness Of Breath Benztropine Mesylate 0.5 mg 08/18/21 22:00 08/19/21 21:39 Benztropine 0.5 Mg Tab PO 0.5 mg QHS XAVIER Administration Calcium Carbonate/Glycine 1,250 mg 08/17/21 10:00 08/20/21 09:31 Calcium Carbonate 1250 Mg Tab PO 1,250 mg QDAY XAVIER Administration Dextrose 0 ml 08/16/21 22:12 Dextrose 50% In Water (25gm) 50 Ml Syringe IV Q30MIN PRN Hypoglycemia Protocol Famotidine 20 mg 08/17/21 10:00 08/20/21 09:31 Famotidine 20 Mg Tab PO 20 mg BID XAVIER Administration Haloperidol 5 mg 08/18/21 22:00 08/19/21 21:42 Haloperidol 5 Mg Tab PO 5 mg QHS XAVIER Administration Heparin Sodium (Porcine) 3,600 unit 08/17/21 16:00 Heparin 10,000 Units/10 Ml Vial IV Q6H PRN Anti-Xa Assay < 0.1 units/ml Heparin Sodium/Sodium Chloride 25,000 unit in 500 mls @ 27 mls/hr 08/17/21 13:30 08/20/21 06:35 Heparin/ 0.45% Nacl-25,000 Unit/500 Ml IV 1,550 units/hr TITR [facility] 31 mls/hr Titration Protocol 1,350 UNITS/HR Insulin Human Lispro 0 unit 08/17/21 22:00 08/20/21 12:47 Insulin Lispro 100 Unit/Ml SUB-Q Not Given ACHS [facility] Protocol Metoprolol Tartrate 12.5 mg 08/18/21 10:00 08/20/21 09:31 Metoprolol Tartrate 25 Mg Tab PO 12.5 mg BID [facility] Administration Montelukast Sodium 10 mg 08/17/21 22:00 08/19/21 21:42 Montelukast 10 Mg Tab PO 10 mg QHS XAVIER Administration Morphine Sulfate 2 mg 08/16/21 22:12 Morphine 2 Mg/1 Ml Inj IV Q4H PRN Pain, Moderate (4-6) Morphine Sulfate 4 mg 08/16/21 22:12 Morphine 4 Mg/1 Ml Inj IV Q4H PRN Pain , Severe (7-10) Ondansetron HCl 4 mg 08/16/21 22:12 Ondansetron 4 Mg/2 Ml Inj IV Q8H PRN Nausea And Vomiting Sodium Chloride 10 ml 08/17/21 10:00 08/20/21 09:32 Sodium Chloride 0.9% 10 Ml Flush Syringe IV 10 ml BID XAVIER Administration Sodium Chloride 10 ml 08/16/21 22:12 Sodium Chloride 0.9% 10 Ml Flush Syringe IV PRN PRN LINE FLUSH Warfarin Sodium 10 mg 08/20/21 17:00 Warfarin 10 Mg Tab PO 08/21/21 16:59 DAILY@1700 [facility] Nutrition/Malnutrition Assess - Dietary Evaluation Nutrition/Malnutrition Findings: Nutrition Notes Start: 08/18/21 14:16 Freq: Status: Active Protocol: Document 08/18/21 14:16 KAROL (Rec: 08/18/21 14:48 KAROL [id number]) Nutrition Notes Need for Assessment generated from: Education Initial or Follow up Assessment Current Diagnosis COPD,Diabetes,Hypertension, Malnutrition Other Pertinent Diagnosis Atrial Fibrilation w/RVR, Schizophrenia. Current Diet Cardiac/Consistent Carbohydrates Diet + ONS ( since B 08/16). Labs/Tests 08/18: Cl 108.0, Glu 145, Ca 8 .3. Pertinent Medications 08/18: Coumadin 7.5 mg, others nutritionally unremarkable. 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 Weight Status Overweight Subjective/Other Information RD consult for warfarin use education assessment. No reports available on Pt's PO intake of meals at the time , will assess at F/U. I will prescribe Dietary supplementation to compensate for possible poor or insufficient PO intake of meals. Pt is on Nasal Cannula, O2 saturation @ 98%, according to Physical Assessment History notes. Pt started on Warfarine on , according to Progress notes; is a candidate for nutrition education, will assess feasibility at F/U. Pt is homeless, according to Progress notes. Percent of energy/protein needs met: Prescribed Cardiac/Consistent Carbohydrates Diet provides for energy/protein needs (1, 977 Kcal/86 g) during LOS; additionally, Dietary Supplements will compensate for possible poor or insufficient PO intake of meals with 440 Kcal and 20 g of protein. Burn Absent Trauma Absent GI Symptoms None Food Allergy No Skin Integrity/Comment Assessment WNL. 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 Etiology Uncertain. As Evidenced by Signs and Symptoms MD request for Dietary Supplementation and lack of reports on Pt's PO intake of meals. #1 Nutrition Diagnosis Food and nutrition-related knowledge deficit Etiology Warfarine use. As Evidenced by Signs and Symptoms New to warfarine treatment. Is patient on ventilator? No Is Patient Ambulatory and/or Out of Bed Yes REE-(Mcnairy-St. Jeor-ambulatory/OOB) [ 3894.632 NUTR.[id number]] Kcal/Kg value to use for calculation 21 Approximate Energy Requirements Using 1924 kcal/Kg Calculation Used for Recommendations Kcal/kg Additional Notes Protein: 1-1.2 g/Kg ABW; 92- 110 g/day. Fluids: 1 ml/Kcal, or as per MD. Nutrition Intervention Change Diet Order: Continue Cardiac/Consistent Carbohydrates Diet. Add Supplement/Snack (indicate name/kcal Start 8 fl oz Glucerna; BID, /protein ) Provides kCal: 440 Provides Protein (gm) 20 Goal #1 Compensate, through dietary supplementation, for possible poor or insufficient PO intake of meals during LOS. Goal #2 During LOS, provide Pt with nutrition education to foster behavioral changes towards a healthy lifestyle. Goal #3 Maintain body weight within +/ -3% of admission body weight during LOS. Follow-Up By: 08/23/21 Additional Comments Nutrition education will be provided on F/U, if feasible. Continue monitoring food tolerance, %PO intake of meals , and BM.
[2021-08-20] MEDS ORDERED: WARFARIN 10 MG TAB PO SCH (17:00)
[2021-08-20] MEDS: MONTELUKAST 10 MG TAB PO SCH (21:45)
[2021-08-20] MEDS: HALOPERIDOL 5 MG TAB PO SCH (21:45)
[2021-08-20] MEDS: BENZTROPINE 0.5 MG TAB PO SCH (21:45)
[2021-08-21 07:53] LABS: INR 1.27 (0.87-1.13)
[2021-08-21] MEDS: INSULIN LISPRO 100 UNIT/ML SUB-Q SCH ×4 (08:27→21:34)
[2021-08-21] MEDS: METOPROLOL TARTRATE 25 MG TAB PO SCH ×2 (09:18→21:41)
[2021-08-21] MEDS: FAMOTIDINE 20 MG TAB PO SCH ×2 (09:18→21:42)
[2021-08-21] MEDS: CALCIUM CARBONATE 1250 MG TAB PO SCH (09:20)
[2021-08-21] MEDS: HEPARIN/ 0.45% NACL DRIP 25,000 UNIT/500 ML BAG IV SCH (09:24)
--- NOTE | 2021-08-21 09:43 | Progress Note ---
Assessment and Plan - Patient Problems (1) Atrial fibrillation Current Visit: Yes Status: Acute Qualifiers: Atrial fibrillation type: unspecified Qualified Code(s): I48.91 - Unspecified atrial fibrillation Plan to address problem: Continue therapeutic anticoagulation with Eliquis. Discharged with coupon for free medication. (2) Homelessness Current Visit: Yes Status: Acute Plan to address problem: Case management consulted. Patient disposition pending case management location of homeless custodial (3) COPD with exacerbation Current Visit: Yes Status: Acute Plan to address problem: Resolved. (4) Schizophrenia Current Visit: Yes Status: Acute Qualifiers: Schizophrenia type: paranoid schizophrenia Qualified Code(s): F20.0 - Paranoid schizophrenia Plan to address problem: Continue medical management. Outpatient psychiatry follow-up. (5) Hypertension Current Visit: No Status: Chronic Qualifiers: Hypertension type: primary hypertension Qualified Code(s): I10 - Essential (primary) hypertension Plan to address problem: Monitor monitor blood pressure every shift, continue medical management (6) DVT prophylaxis Current Visit: Yes Status: Acute Plan to address problem: SCD to bilateral lower extremities while in bed, continue therapeutic anticoagulation. (7) Advance care planning Current Visit: Yes Status: Acute Plan to address problem: Disease education data, care plan discussed, diagnoses discussed, prognosis discussed, patient is full code, +30 minutes. (8) Preventative health care Current Visit: Yes Status: Acute Plan to address problem: Patient counseled regarding medication compliance, balanced diet, increase physical activity discharge, outpatient compliance with all medication. Patient counseled to follow-up with primary care physician within 3 to 5 days for all age and risk factor appropriate screening test. +30 minutes. History Interval history: 76-year-old male hospital day 5 with atrial fibrillation with rapid ventricular response, acute hypoxemic respiratory failure which has currently resolved, hypertension, schizophrenia, vascular dementia, cerebral atherosclerosis, obesity hypoventilation. Patient medically optimized. Patient resumed on oral anticoagulation therapy. Patient medically optimized for discharge at this time. Case management consulted for assistance with discharge planning. Patient pending discharge to homeless custodial. Hospitalist Physical - Constitutional Vitals: Temp Pulse Resp BP Pulse Ox 98.4 F 72 18 112/52 93 08/21/21 07:22 08/21/21 09:18 08/21/21 03:58 08/21/21 07:22 08/21/21 07:22 General appearance: Present: no acute distress, well-nourished, obese - EENT Eyes: Present: PERRL ENT: hearing intact - Neck Neck: Present: supple - Respiratory Respiratory effort: normal Respiratory: bilateral: CTA - Cardiovascular Rhythm: irregularly irregular - Extremities Extremities: no ischemia Peripheral Pulses: within normal limits - Abdominal General gastrointestinal: soft, non-tender, non-distended - Integumentary Integumentary: Present: clear, dry - Psychiatric Psychiatric: cooperative - Neurologic Neurologic: CNII-XII intact Results - Labs CBC & Chem 7: 08/19/21 05:44 08/18/21 04:30 Labs: Laboratory Last Values WBC 9.8 K/mm3 (4.5-11.0) 08/19/21 05:44 RBC 4.39 M/mm3 (3.65-5.03) 08/19/21 05:44 Hgb 13.0 gm/dl (11.8-15.2) 08/19/21 05:44 Hct 40.3 % (35.5-45.6) 08/19/21 05:44 MCV 92 fl (84-94) 08/19/21 05:44 MCH 30 pg (28-32) 08/19/21 05:44 MCHC 32 % (32-34) 08/19/21 05:44 RDW 14.9 % (13.2-15.2) 08/19/21 05:44 Plt Count 225 K/mm3 (140-440) 08/19/21 05:44 Lymph % (Auto) 20.9 % (13.4-35.0) 08/19/21 05:44 [place] % (Auto) 7.5 % (0.0-7.3) H 08/19/21 05:44 Eos % (Auto) 0.7 % (0.0-4.3) 08/19/21 05:44 Baso % (Auto) 0.9 % (0.0-1.8) 08/19/21 05:44 Lymph # (Auto) 2.1 K/mm3 (1.2-5.4) 08/19/21 05:44 [place] # (Auto) 0.7 K/mm3 (0.0-0.8) 08/19/21 05:44 Eos # (Auto) 0.1 K/mm3 (0.0-0.4) 08/19/21 05:44 Baso # (Auto) 0.1 K/mm3 (0.0-0.1) 08/19/21 05:44 Add Manual Diff Complete 08/17/21 04:13 Total Counted 100 08/17/21 04:13 Seg Neutrophils % 70.0 % (40.0-70.0) 08/19/21 05:44 Seg Neuts % (Manual) 89.0 % (40.0-70.0) H 08/17/21 04:13 Band Neutrophils % 2.0 % 08/17/21 04:13 Lymphocytes % (Manual) 5.0 % (13.4-35.0) L 08/17/21 04:13 Reactive Lymphs % (Man) 0 % 08/17/21 04:13 Monocytes % (Manual) 4.0 % (0.0-7.3) 08/17/21 04:13 Eosinophils % (Manual) 0 % (0.0-4.3) 08/17/21 04:13 Basophils % (Manual) 0 % (0.0-1.8) 08/17/21 04:13 Metamyelocytes % 0 % 08/17/21 04:13 Myelocytes % 0 % 08/17/21 04:13 Promyelocytes % 0 % 08/17/21 04:13 Blast Cells % 0 % 08/17/21 04:13 Nucleated RBC % Not Reportable 08/17/21 04:13 Seg Neutrophils # 6.9 K/mm3 (1.8-7.7) 08/19/21 05:44 Seg Neutrophils # Man 12.3 K/mm3 (1.8-7.7) H 08/17/21 04:13 Band Neutrophils # 0.3 K/mm3 08/17/21 04:13 Lymphocytes # (Manual) 0.7 K/mm3 (1.2-5.4) L 08/17/21 04:13 Abs React Lymphs (Man) 0.0 K/mm3 08/17/21 04:13 Monocytes # (Manual) 0.6 K/mm3 (0.0-0.8) 08/17/21 04:13 Eosinophils # (Manual) 0.0 K/mm3 (0.0-0.4) 08/17/21 04:13 Basophils # (Manual) 0.0 K/mm3 (0.0-0.1) 08/17/21 04:13 Metamyelocytes # 0.0 K/mm3 08/17/21 04:13 Myelocytes # 0.0 K/mm3 08/17/21 04:13 Promyelocytes # 0.0 K/mm3 08/17/21 04:13 Blast Cells # 0.0 K/mm3 08/17/21 04:13 WBC Morphology Not Reportable 08/17/21 04:13 Hypersegmented Neuts Not Reportable 08/17/21 04:13 Hyposegmented Neuts Not Reportable 08/17/21 04:13 Hypogranular Neuts Not Reportable 08/17/21 04:13 Smudge Cells Not Reportable 08/17/21 04:13 Toxic Granulation Not Reportable 08/17/21 04:13 Toxic Vacuolation Not Reportable 08/17/21 04:13 Dohle Bodies Not Reportable 08/17/21 04:13 Pelger-Huet Anomaly Not Reportable 08/17/21 04:13 Nereyda Rods Not Reportable 08/17/21 04:13 Platelet Estimate Consistent w auto 08/17/21 04:13 Clumped Platelets Not Reportable 08/17/21 04:13 Plt Clumps, EDTA Not Reportable 08/17/21 04:13 Large Platelets Not Reportable 08/17/21 04:13 Giant Platelets Not Reportable 08/17/21 04:13 Platelet Satelliting Not Reportable 08/17/21 04:13 Plt Morphology Comment Not Reportable 08/17/21 04:13 RBC Morphology Normal 08/17/21 04:13 Dimorphic RBCs Not Reportable 08/17/21 04:13 Polychromasia Not Reportable 08/17/21 04:13 Hypochromasia Not Reportable 08/17/21 04:13 Poikilocytosis Not Reportable 08/17/21 04:13 Anisocytosis Not Reportable 08/17/21 04:13 Microcytosis Not Reportable 08/17/21 04:13 Macrocytosis Not Reportable 08/17/21 04:13 Spherocytes Not Reportable 08/17/21 04:13 Pappenheimer Bodies Not Reportable 08/17/21 04:13 Sickle Cells Not Reportable 08/17/21 04:13 Target Cells Not Reportable 08/17/21 04:13 Tear Drop Cells Not Reportable 08/17/21 04:13 Ovalocytes Not Reportable 08/17/21 04:13 Helmet Cells Not Reportable 08/17/21 04:13 [place] Bodies Not Reportable 08/17/21 04:13 [place] Rings Not Reportable 08/17/21 04:13 [place] Cells Not Reportable 08/17/21 04:13 Bite Cells Not Reportable 08/17/21 04:13 Crenated Cell Not Reportable 08/17/21 04:13 Elliptocytes Not Reportable 08/17/21 04:13 Acanthocytes (Spur) Not Reportable 08/17/21 04:13 Rouleaux Not Reportable 08/17/21 04:13 Hemoglobin C Crystals Not Reportable 08/17/21 04:13 Schistocytes Not Reportable 08/17/21 04:13 Malaria parasites Not Reportable 08/17/21 04:13 [place] Bodies Not Reportable 08/17/21 04:13 Hem Pathologist Commnt No 08/17/21 04:13 PT 17.4 Sec. (12.2-14.9) H 08/21/21 05:41 INR 1.27 (0.87-1.13) H 08/21/21 05:41 Heparin Anti-Xa Level 0.25 U.I./ml (0.3-0.7) L 08/21/21 05:41 Sodium 141 mmol/L (137-145) 08/18/21 04:30 Potassium 4.0 mmol/L (3.6-5.0) 08/18/21 04:30 Chloride 108.0 mmol/L (98-107) H 08/18/21 04:30 Carbon Dioxide 24 mmol/L (22-30) 08/18/21 04:30 Anion Gap 13 mmol/L 08/18/21 04:30 BUN 17 mg/dL (9-20) 08/18/21 04:30 Creatinine 0.8 mg/dL (0.8-1.3) 08/18/21 04:30 Estimated GFR > 60 ml/min 08/18/21 04:30 BUN/Creatinine Ratio 21 % 08/18/21 04:30 Glucose 145 mg/dL (75-100) H 08/18/21 04:30 POC Glucose 97 mg/dL (70-105) 08/21/21 07:22 Lactic Acid 1.40 mmol/L (0.7-2.0) 08/16/21 16:18 Calcium 8.3 mg/dL (8.4-10.2) L 08/18/21 04:30 Total Bilirubin 0.60 mg/dL (0.1-1.2) 08/16/21 16:18 AST 13 units/L (5-40) 08/16/21 16:18 ALT 13 units/L (7-56) 08/16/21 16:18 Alkaline Phosphatase 91 units/L (35-129) 08/16/21 16:18 Total Protein 6.4 g/dL (6.3-8.2) 08/16/21 16:18 Albumin 3.6 g/dL (3.9-5) L 08/16/21 16:18 Albumin/Globulin Ratio 1.3 % 08/16/21 16:18 Urine Color Yellow (Yellow) 08/17/21 Unknown Urine Turbidity Cloudy (Clear) 08/17/21 Unknown Urine pH 6.0 (5.0-7.0) 08/17/21 Unknown Ur Specific [place] 1.017 (1.003-1.030) 08/17/21 Unknown Urine Protein 30 mg/dl mg/dL (Negative) 08/17/21 Unknown Urine Glucose (UA) >=500 mg/dL (Negative) 08/17/21 Unknown Urine Ketones Neg mg/dL (Negative) 08/17/21 Unknown Urine Blood Neg (Negative) 08/17/21 Unknown Urine Nitrite Neg (Negative) 08/17/21 Unknown Urine Bilirubin Neg (Negative) 08/17/21 Unknown Urine Urobilinogen 4.0 mg/dL (<2.0) 08/17/21 Unknown Ur Leukocyte Esterase Lg (Negative) 08/17/21 Unknown Urine WBC (Auto) < 1.0 /HPF (0.0-6.0) 08/17/21 Unknown Urine RBC (Auto) < 1.0 /HPF (0.0-6.0) 08/17/21 Unknown Urine Opiates Screen Negative 08/17/21 Unknown Urine Methadone Screen Negative 08/17/21 Unknown Ur Barbiturates Screen Negative 08/17/21 Unknown Ur Phencyclidine Scrn Negative 08/17/21 Unknown Ur Amphetamines Screen Negative 08/17/21 Unknown U Benzodiazepines Scrn Negative 08/17/21 Unknown Urine Cocaine Screen Negative 08/17/21 Unknown U Marijuana (THC) Screen Negative 08/17/21 Unknown Drugs of Abuse Note Disclamer 08/17/21 Unknown Microbiology: Microbiology 08/16/21 16:18 Peripheral/Venous Blood Culture - Preliminary NO GROWTH AFTER 4 DAYS 08/16/21 16:18 Peripheral/Venous Blood Culture - Preliminary NO GROWTH AFTER 4 DAYS Burns/IV: Voiding Method Urinal Active Medications - Current Medications Current Medications: Generic Name Dose Route Start Last Admin Trade Name Freq PRN Reason Stop Dose Admin Acetaminophen 650 mg 08/16/21 22:12 Acetaminophen 325 Mg Tab PO Q4H PRN Pain MILD(1-3)/Fever >100.5/ANDREWS Albuterol 2.5 mg 08/16/21 22:12 Albuterol 2.5 Mg/3 Ml Nebu IH Q3HRT PRN Shortness Of Breath Apixaban 5 mg 08/21/21 10:00 Apixaban 5 Mg Tab PO Q12HR XAVIER Protocol Benztropine Mesylate 0.5 mg 08/18/21 22:00 08/20/21 21:45 Benztropine 0.5 Mg Tab PO 0.5 mg QHS XAVIER Administration Calcium Carbonate/Glycine 1,250 mg 08/17/21 10:00 08/21/21 09:20 Calcium Carbonate 1250 Mg Tab PO 1,250 mg QDAY XAVIER Administration Dextrose 0 ml 08/16/21 22:12 Dextrose 50% In Water (25gm) 50 Ml Syringe IV Q30MIN PRN Hypoglycemia Protocol Famotidine 20 mg 08/17/21 10:00 08/21/21 09:18 Famotidine 20 Mg Tab PO 20 mg BID XAVIER Administration Haloperidol 5 mg 08/18/21 22:00 08/20/21 21:45 Haloperidol 5 Mg Tab PO 5 mg QHS XAVIER Administration Heparin Sodium (Porcine) 3,600 unit 08/17/21 16:00 Heparin 10,000 Units/10 Ml Vial IV Q6H PRN Anti-Xa Assay < 0.1 units/ml Insulin Human Lispro 0 unit 08/17/21 22:00 08/21/21 08:27 Insulin Lispro 100 Unit/Ml SUB-Q Not Given ACHS XAVIER Protocol Metoprolol Tartrate 12.5 mg 08/18/21 10:00 08/21/21 09:18 Metoprolol Tartrate 25 Mg Tab PO 12.5 mg BID XAVIER Administration Montelukast Sodium 10 mg 08/17/21 22:00 08/20/21 21:45 Montelukast 10 Mg Tab PO 10 mg QHS XAVIER Administration Morphine Sulfate 2 mg 08/16/21 22:12 Morphine 2 Mg/1 Ml Inj IV Q4H PRN Pain, Moderate (4-6) Morphine Sulfate 4 mg 08/16/21 22:12 Morphine 4 Mg/1 Ml Inj IV Q4H PRN Pain , Severe (7-10) Ondansetron HCl 4 mg 08/16/21 22:12 Ondansetron 4 Mg/2 Ml Inj IV Q8H PRN Nausea And Vomiting Sodium Chloride 10 ml 08/17/21 10:00 08/21/21 09:20 Sodium Chloride 0.9% 10 Ml Flush Syringe IV 10 ml BID XAVIER Administration Sodium Chloride 10 ml 08/16/21 22:12 Sodium Chloride 0.9% 10 Ml Flush Syringe IV PRN PRN LINE FLUSH Nutrition/Malnutrition Assess - Dietary Evaluation Nutrition/Malnutrition Findings: Nutrition Notes Start: 08/18/21 14:16 Freq: Status: Active Protocol: Document 08/18/21 14:16 KAROL (Rec: 08/18/21 14:48 KAROL [id number]) Nutrition Notes Need for Assessment generated from: Education Initial or Follow up Assessment Current Diagnosis COPD,Diabetes,Hypertension, Malnutrition Other Pertinent Diagnosis Atrial Fibrilation w/RVR, Schizophrenia. Current Diet Cardiac/Consistent Carbohydrates Diet + ONS ( since B 08/16). Labs/Tests 08/18: Cl 108.0, Glu 145, Ca 8 .3. Pertinent Medications 08/18: Coumadin 7.5 mg, others nutritionally unremarkable. Height 5 ft 9 in Weight 91.626 kg [place] Body Weight (kg) 72.72 BMI 29.8 Intake Prior to Admission Good Weight change and time frame Pt denies having loss body weight [employer]. Weight Status Overweight Subjective/Other Information RD consult for warfarin use education assessment. No reports available on Pt's PO intake of meals at the time , will assess at F/U. I will prescribe Dietary supplementation to compensate for possible poor or insufficient PO intake of meals. Pt is on Nasal Cannula, O2 saturation @ 98%, according to Physical Assessment History notes. Pt started on Warfarine on , according to Progress notes; is a candidate for nutrition education, will assess feasibility at F/U. Pt is homeless, according to Progress notes. Percent of energy/protein needs met: Prescribed Cardiac/Consistent Carbohydrates Diet provides for energy/protein needs (1, 977 Kcal/86 g) during LOS; additionally, Dietary Supplements will compensate for possible poor or insufficient PO intake of meals with 440 Kcal and 20 g of protein. Burn Absent Trauma Absent GI Symptoms None Food Allergy No Skin Integrity/Comment Assessment WNL. Minimum of two criteria No Fluid Accumulation N/A Reduced Table Operator Strength N/A (non-severe) Protein-Calorie Malnutrition N\A #2 Nutrition Diagnosis Predicted suboptimal energy intake Comments: Will assess Pt's PO intake of meals and need for ONS at F/U. Etiology Uncertain. As Evidenced by Signs and Symptoms MD request for Dietary Supplementation and lack of reports on Pt's PO intake of meals. #1 Nutrition Diagnosis Food and nutrition-related knowledge deficit Etiology Warfarine use. As Evidenced by Signs and Symptoms New to warfarine treatment. Is patient on ventilator? No Is Patient Ambulatory and/or Out of Bed Yes REE-([place]-St. Jeor-ambulatory/OOB) [ 2127.632 NUTR.MSJOOB] Kcal/Kg value to use for calculation 21 Approximate Energy Requirements Using 1924 kcal/Kg Calculation Used for Recommendations Kcal/kg Additional Notes Protein: 1-1.2 g/Kg ABW; 92- 110 g/day. Fluids: 1 ml/Kcal, or as per MD. Nutrition Intervention Change Diet Order: Continue Cardiac/Consistent Carbohydrates Diet. Add Supplement/Snack (indicate name/kcal Start 8 fl oz Glucerna; BID, /protein ) Provides kCal: 440 Provides Protein (gm) 20 Goal #1 Compensate, through dietary supplementation, for possible poor or insufficient PO intake of meals during LOS. Goal #2 During LOS, provide Pt with nutrition education to foster behavioral changes towards a healthy lifestyle. Goal #3 Maintain body weight within +/ -3% of admission body weight during LOS. Follow-Up By: 08/23/21 Additional Comments Nutrition education will be provided on F/U, if feasible. Continue monitoring food tolerance, %PO intake of meals , and BM.
[2021-08-21 11:00] LABS: Hematocrit 43.4 % (35.5-45.6); Hemoglobin 14.2 gm/dl (11.8-15.2); Mean Corpuscular HGB Conc 33 % (32-34); Mean Corpuscular Volume 92 fl (84-94); Platelet Count 220 K/mm3 (140-440); Red Blood Count 4.74 M/mm3 (3.65-5.03); Red Cell Distribution Width 14.8 % (13.2-15.2)
[2021-08-21 11:11] LABS: INR 1.24 (0.87-1.13); Partial Thromboplastin Time 25.2 Sec. (24.2-36.6)
[2021-08-21] MEDS: APIXABAN 5 MG TAB PO SCH ×2 (15:51→21:40)
[2021-08-21] MEDS ORDERED: WARFARIN 10 MG TAB PO SCH (17:00)
[2021-08-21] MEDS: BENZTROPINE 0.5 MG TAB PO SCH (21:40)
[2021-08-21] MEDS: HALOPERIDOL 5 MG TAB PO SCH (21:41)
[2021-08-21] MEDS: MONTELUKAST 10 MG TAB PO SCH (21:43)
[2021-08-22 05:34] LABS: INR 1.4 (0.87-1.13)
[2021-08-22] MEDS: INSULIN LISPRO 100 UNIT/ML SUB-Q SCH ×4 (07:40→22:31)
[2021-08-22] MEDS: APIXABAN 5 MG TAB PO SCH ×2 (09:57→22:22)
[2021-08-22] MEDS: CALCIUM CARBONATE 1250 MG TAB PO SCH (09:57)
[2021-08-22] MEDS: METOPROLOL TARTRATE 25 MG TAB PO SCH ×2 (09:57→22:22)
[2021-08-22] MEDS: FAMOTIDINE 20 MG TAB PO SCH ×2 (09:58→22:22)
--- NOTE | 2021-08-22 14:27 | Progress Note ---
Subjective - Reason for Consult Consult date: 08/22/21 Reason for consult: MHE - Chief Complaint Chief complaint: Patient describes a good and stable mood, denies being depressed or excessively nervous. Patient eats and sleeps well. Patient denies panic attacks, recurrent nightmares or flashbacks. Patient denies symptoms suggestive of OCD or PTSD. Patient denies hallucinations, paranoia, thought interference and no features suggestive of hypomania or matt. He completely denies suicidal or homicidal thoughts. Mental Status Exam - Vital signs Last Vital Signs Temp 97.8 F 08/22/21 04:45 Pulse 83 08/22/21 09:07 Resp 18 08/22/21 04:45 BP 117/55 08/22/21 09:07 Pulse Ox 97 08/22/21 09:07 - Exam Orientation: time, place, person Affect: normal Mood: appropriate Thought Process: Intact Perceptions: none Speech: normal rate and pattern Concentration: focused Motor activity: normal Level of consciousness: alert Memory: Intact Sleep Symptoms: None Interaction: cooperative Mini mental status exam(if necessary): 24-30 Assessment and Plan - Patient Problems (1) Schizophrenia Current Visit: Yes Status: Acute Qualifiers: Schizophrenia type: paranoid schizophrenia Qualified Code(s): F20.0 - Paranoid schizophrenia Plan to address problem: Continue home meds PSYCHOTHERAPY: Supportive psychotherapy provided MEDICAL: Per primary team [employer]: Per medical team DISPOSITION: Do not recommend acute psychiatric inpatient treatment. Will follow for medication management. Thank you for the consult.
--- NOTE | 2021-08-22 14:48 | Discharge Summary ---
Providers - Providers Date of Admission: 08/16/21 22:31 Attending physician: THOMAS BELLAMY MD 08/17/21 12:41 Consult Geriatric-Psych [CONS] Routine Consulting Provider: CAMMIE RUEDA Reason For Exam: History of schizophrenia but cannot remember meds. Primary care physician: MERCHANDISE SUPERVISOR Hospitalization Reason for admission: afib Condition: Stable Hospital course: 76-year-old male hospital day 5 with atrial fibrillation with rapid ventricular response, acute hypoxemic respiratory failure which has currently resolved, hypertension, schizophrenia, vascular dementia, cerebral atherosclerosis, obesity hypoventilation. Patient medically optimized. Patient resumed on oral anticoagulation therapy. Patient medically optimized for discharge at this time. Case management consulted for assistance with discharge planning. Patient pending discharge to homeless custodial. 08/22: Patient seen and examined, resting comfortable, no distress. He is ambulating without difficulty, discussed with nursing and case management, Discharge planned. #COPD exacerbationruled out Patient denies increased sputum production, change in color SpO2 goal 88 to 92% on room air #Atrial fibrillation with RVRresolved #Acute hypoxic respiratory failureresolved - etiology: Secondary to A. fib with RVR - baseline oxygen requirements: Room air - supplemental oxygen: 2 L nasal cannula Transition p.o. Cardizem 30 mg every 6 hours to metoprolol tartrate 25 mg twice daily. Patient endorses taking Xarelto at home for anticoagulation in the setting of A. fib; however, the patient does not have the financial ability to continue this medication. Continue warfarin with heparin bridge. INR goal 23. INR: 1.0--> 1.03--> 1.08 Discontinue steroids, azithromycin, and Rocephin. - Continue protocol: continue pulse oximetry, wean oxygen as tolerated, ordered incentive spirometry and educated patient on how to use it and its importance. - continue to monitor #Hypertension - home medications: Metoprolol succinate 50 mg daily - current medications: Currently holding as the patient is normotensive - SBP goal <160 and DBP goal <90 while inpatient - continue to monitor #Schizophrenia Patient unable to provide name of medication. Psychiatry consulted; appreciate recs. #Hypocalcemia Calcium 8.1 Repleted. Continue to monitor. #Mild protein caloric malnutrition Albumin 3.6 Continue dietary supplementation. #Unsheltered homelessness Case management consulted with assistance of finding a custodial for the patient upon discharge. Case management expresses understanding. #Tobacco dependence #Tobacco/Smoking cessation counseling - Counseled patient about the importance of smoking cessation and the possible sequelae as a result of continued tobacco consumption. The patient expresses understanding. -Time: +15 mins #Advanced care planning -Disease education conducted, care plan discussed, diagnoses discussed, prognosis discussed, and patient acknowledges understanding with care plan -Time: +30 min #Discharge planning - Patient is pending resolution of respiratory failure and INR of 23. - Case management has been made aware. Disposition Plan: Continue medical management Total Time Spent with Patient (Minutes): 30 minutes Disposition: HOME / SELF CARE / HOMELESS Final Discharge Diagnosis (Prints w/discharge instructions): Atrial fibrillation Time spent for discharge: 35 mins Core Measure Documentation - Palliative Care Palliative Care/ Comfort Measures: Not Applicable - Core Measures Any of the following diagnoses?: none Exam - Physical Exam Narrative exam: General appearance: Present: no acute distress, well-nourished, obese - EENT Eyes: Present: PERRL, EOM intact ENT: hearing intact, clear oral mucosa, dentition normal - Neck Neck: Present: supple, normal ROM - Respiratory Respiratory effort: normal Respiratory: bilateral: CTA - Cardiovascular Rhythm: regular Heart Sounds: Present: S1 & S2 - Extremities Extremities: no ischemia, pulses intact, pulses symmetrical, No edema, normal temperature, normal color, Full ROM Peripheral Pulses: within normal limits - Abdominal General gastrointestinal: soft, non-tender, non-distended, normal bowel sounds - Integumentary Integumentary: Present: clear, warm, dry - Psychiatric Psychiatric: appropriate mood/affect, memory intact, cooperative - Neurologic Neurologic: CNII-XII intact, moves all extremities - Constitutional Vitals: Temp Pulse Resp BP Pulse Ox 97.8 F 83 18 117/55 97 08/22/21 04:45 08/22/21 09:07 08/22/21 04:45 08/22/21 09:07 08/22/21 09:07 Plan Activity: advance as tolerated, fall precautions Diet: low fat Special Instructions: record daily weights, record daily BP diary Follow up with: FLOWER HART MD [Staff Physician] - 7 Days JARRETT SLOAN MD [Staff Physician] - 7 Days CAMMIE RUEDA MD [Staff Physician] - 7 Days Prescriptions: Montelukast [Singulair] 10 mg PO QHS #30 tablet Benztropine [Cogentin] 0.5 mg PO HS #30 tablet dexAMETHasone [Decadron] 4 mg PO BID 5 Days #10 tablet Apixaban [Eliquis] 5 mg PO Q12HR #60 tablet Metoprolol [Lopressor TAB] 12.5 mg PO BID #60 tablet Calcium Carbonate [[place]scal 1250MG TAB] 1,250 mg PO QDAY #10 tablet Famotidine [Pepcid] 20 mg PO BID #60 tablet Albuterol Mdi (or & Nicu Only) [ProAir HFA Inhaler] 2 puff IH QID PRN #8.5 gram PRN Reason: Shortness Of Breath OLANzapine [ZyPREXA] 5 mg PO HS #30 tablet
[2021-08-22] MEDS: HALOPERIDOL 5 MG TAB PO SCH (22:22)
[2021-08-22] MEDS: BENZTROPINE 0.5 MG TAB PO SCH (22:22)
[2021-08-22] MEDS: MONTELUKAST 10 MG TAB PO SCH (22:22)
[2021-08-23 05:01] LABS: Hematocrit 45.7 % (35.5-45.6); Hemoglobin 14.9 gm/dl (11.8-15.2); Mean Corpuscular HGB Conc 33 % (32-34); Mean Corpuscular Volume 91 fl (84-94); Platelet Count 209 K/mm3 (140-440); Red Blood Count 5.01 M/mm3 (3.65-5.03); Red Cell Distribution Width 15.1 % (13.2-15.2)
[2021-08-23 05:13] LABS: INR 1.19 (0.87-1.13)
[2021-08-23 07:59] VITALS: BP 99/47
[2021-08-23] MEDS: FAMOTIDINE 20 MG TAB PO SCH (09:11)
[2021-08-23] MEDS: CALCIUM CARBONATE 1250 MG TAB PO SCH (09:11)
[2021-08-23] MEDS: APIXABAN 5 MG TAB PO SCH (09:11)
[2021-08-23] MEDS: METOPROLOL TARTRATE 25 MG TAB PO SCH (09:12)
== END 2021-08-23 09:50 | disposition home or self-care (01) | DRG 308 ==
LOC: ED 14:55 → 4A 22:31
PROVIDERS: ADMIT Hospitalist; ATTEND Internal Medicine
DX: I48.91 Unspecified atrial fibrillation (principal); J96.01 Acute respiratory failure with hypoxia; E44.1 Mild protein-calorie malnutrition; F20.0 Paranoid schizophrenia; I10 Essential (primary) hypertension; E11.9 Type 2 diabetes mellitus without complications; J44.9 Chronic obstructive pulmonary disease, unspecified; E87.6 Hypokalemia; I67.2 Cerebral atherosclerosis; F01.50 Vascular dementia, unspecified severity, without behavioral disturbance, psychotic disturbance, mood disturbance, and anxiety; E83.51 Hypocalcemia; Z68.36 Body mass index [BMI] 36.0-36.9, adult; Z79.01 Long term (current) use of anticoagulants; I25.2 Old myocardial infarction; Z71.6 Tobacco abuse counseling; Z82.49 Family history of ischemic heart disease and other diseases of the circulatory system
CPT/HCPCS: 36415; 71045; 80048; 80053; 80307; 81001; 82140; 82565; 82962; 85007; 85025; 85027; 85520; 85610; 85730; 87040; 93005; 94640; 94760; G0378; J3490; Q9967; J0282; J1644; J1815; J2543; J2920; J2930; J3370; J7030